=== PATIENT | female | born 1965 | race Caucasian/White ===

== ENCOUNTER → 2016-09-11 | Outpatient (CLI) | payer BC ==
[~2016-09-11] MED LIST: GABA100C; HYDR-4663 PO
[2016-09-11 12:21] LABS: Basophils # (auto) 0 uL; Basophils % (auto) 0.1 % (0.0-2.0); CONDITION Y; Eosinophils # (auto) 0.1 uL; Eosinophils % (auto) 1.2 % (0.0-7.0); Hematocrit 40.1 % (36.0-46.0); Hemoglobin 13.3 g/dL (12.2-16.2); Lymphocytes # (auto) 2.1 uL; Lymphocytes % (auto) 25.1 % (10.0-50.0); Mean Corpuscular Hemoglobin 30.3 pg (28.0-32.0); Mean Corpuscular Hgb Conc. 33.1 g/dL (32.0-36.0); Mean Corpuscular Volume 91.6 fL (80.0-100.0); Mean Platelet Volume 8.9 fL (7.4-10.4); Monocytes # (auto) 0.4 uL; Monocytes % (auto) 4.3 % (0.0-12.0); Neutrophils # (auto) 5.9 uL; Neutrophils % (auto) 69.3 % (37.0-80.0); Platelet Count (auto) 254 10^3/uL (140-450); Red Cell Distribution Width 14.6 % (11.6-16.0); White Blood Cell 8.5 10^3/uL (4.4-10.8)
[2016-09-11 12:54] LABS: Albumin 3.6 g/dL (3.4-5.0); BUN/Creatinine Ratio 20.8; Bilirubin, Total 0.3 mg/dL (0.2-1.0); Calcium 8.6 mg/dL (8.5-10.1); Potassium 4.4 mmol/L (3.5-5.1); Total Protein 7.2 g/dL (6.4-8.2)
== END | disposition home or self-care (01) ==
LOC: LAB 11:53
PROVIDERS: ATTEND Internal Medicine
DX: C50.119 Malignant neoplasm of central portion of unspecified female breast (principal)
CPT/HCPCS: 36415; 80053; 83615; 85025

== ENCOUNTER → 2016-12-24 | Outpatient (CLI) | payer BC ==
[2016-12-24 16:51] LABS: Basophils # (auto) 0.1 uL; Basophils % (auto) 1.3 % (0.0-2.0); Eosinophils # (auto) 0.1 uL; Eosinophils % (auto) 1.3 % (0.0-7.0); Hematocrit 38.5 % (36.0-46.0); Hemoglobin 12.9 g/dL (12.2-16.2); Lymphocytes # (auto) 2.1 uL; Lymphocytes % (auto) 30.1 % (10.0-50.0); Mean Corpuscular Hemoglobin 31.9 pg (28.0-32.0); Mean Corpuscular Hgb Conc. 33.5 g/dL (32.0-36.0); Mean Corpuscular Volume 95.3 fL (80.0-100.0); Mean Platelet Volume 8.9 fL (6.9-10.8); Monocytes # (auto) 0.5 uL; Monocytes % (auto) 7.9 % (0.0-12.0); Neutrophils # (auto) 4.1 uL; Neutrophils % (auto) 59.4 % (37.0-80.0); Nucleated Red Blood Cells % 0.1 %; Platelet Count (auto) 206 10^3/uL (140-450); Red Cell Distribution Width 14.6 % (11.8-14.3); White Blood Cell 6.9 10^3/uL (4.4-10.8)
[2016-12-24 17:06] LABS: Albumin 3.6 g/dL (3.4-5.0); BUN/Creatinine Ratio 16.2; Bilirubin, Total 0.2 mg/dL (0.2-1.0); Calcium 8.4 mg/dL (8.5-10.1); Potassium 4.1 mmol/L (3.5-5.1); Total Protein 7.1 g/dL (6.4-8.2)
== END | disposition home or self-care (01) ==
LOC: LAB 15:46
PROVIDERS: ATTEND Internal Medicine
DX: C50.912 Malignant neoplasm of unspecified site of left female breast (principal); Z79.899 Other long term (current) drug therapy
CPT/HCPCS: 36415; 80053; 83615; 85025; 86300; 86304

== ENCOUNTER → 2017-03-09 | Outpatient (CLI) | payer BC ==
[~2017-03-09] MED LIST changes: -HYDR-4663 PO; +HYDR-4683 PO
[2017-03-09 12:13] LABS: Basophils # (auto) 0 uL; Basophils % (auto) 0.8 % (0.0-2.0); Eosinophils # (auto) 0.1 uL; Eosinophils % (auto) 1.2 % (0.0-7.0); Hematocrit 40.8 % (36.0-46.0); Hemoglobin 13.5 g/dL (12.2-16.2); Lymphocytes # (auto) 1.9 uL; Lymphocytes % (auto) 35.9 % (10.0-50.0); Mean Corpuscular Hemoglobin 30.7 pg (28.0-32.0); Mean Corpuscular Volume 93.3 fL (80.0-100.0); Monocytes # (auto) 0.4 uL; Monocytes % (auto) 8.1 % (0.0-12.0); Neutrophils # (auto) 2.8 uL; Nucleated Red Blood Cells % 0.1 %; Platelet Count (auto) 211 10^3/uL (140-450); Red Cell Distribution Width 13.7 % (11.8-14.3); White Blood Cell 5.3 10^3/uL (4.4-10.8)
[2017-03-09 12:16] LABS: Albumin 3.7 g/dL (3.4-5.0); Bilirubin, Total 0.6 mg/dL (0.2-1.0); Calcium 8.7 mg/dL (8.5-10.1); Total Protein 7.3 g/dL (6.4-8.2)
[2017-03-09 12:28] LABS: Temperature: 23.3 C (20.0-25.0)
[2017-03-09 12:53] LABS: Large Platelets FEW; Ovalocytes FEW; Platelet Estimate Adequate
== END | disposition home or self-care (01) ==
LOC: LAB 11:10
PROVIDERS: ATTEND Internal Medicine
DX: C50.119 Malignant neoplasm of central portion of unspecified female breast (principal)
CPT/HCPCS: 36415; 80053; 82672; 82746; 83615; 85025; 86300

== ENCOUNTER → 2017-06-25 | Outpatient (CLI) | payer BC ==
[2017-06-25 12:49] LABS: Basophils # (auto) 0 uL; Basophils % (auto) 0.5 % (0.0-2.0); Eosinophils # (auto) 0.1 uL; Hematocrit 41.9 % (36.0-46.0); Hemoglobin 13.1 g/dL (12.2-16.2); Lymphocytes # (auto) 1.8 uL; Lymphocytes % (auto) 29.9 % (10.0-50.0); Mean Corpuscular Hemoglobin 31.3 pg (28.0-32.0); Mean Corpuscular Hgb Conc. 31.2 g/dL (32.0-36.0); Mean Corpuscular Volume 100.4 fL (80.0-100.0); Monocytes # (auto) 0.4 uL; Monocytes % (auto) 6.5 % (0.0-12.0); Neutrophils # (auto) 3.7 uL; Neutrophils % (auto) 62.1 % (37.0-80.0); Nucleated Red Blood Cells % 0.1 %; Platelet Count (auto) 173 10^3/uL (140-450); Red Blood Cells 4.17 10^6/uL (4.0-5.20); White Blood Cell 5.9 10^3/uL (4.4-10.8)
[2017-06-25 13:38] LABS: Albumin 3.6 g/dL (3.4-5.0); BUN/Creatinine Ratio 18.7; Bilirubin, Total 0.5 mg/dL (0.2-1.0); Calcium 8.4 mg/dL (8.5-10.1); Potassium 3.8 mmol/L (3.5-5.1); Total Protein 7.1 g/dL (6.4-8.2)
== END | disposition home or self-care (01) ==
LOC: LAB 12:14
PROVIDERS: ATTEND Internal Medicine
DX: C50.312 Malignant neoplasm of lower-inner quadrant of left female breast (principal)
CPT/HCPCS: 36415; 80053; 82672; 83001; 83615; 85025; 86300

== ENCOUNTER 2017-09-29 14:52 | Inpatient (IN) | payer BC ==
[~2017-09-29] VITALS: Ht 157.5 cm; Wt 83.1 kg
[2017-09-29 15:41] LABS: Basophils # (auto) 0.1 uL; Basophils % (auto) 1.6 % (0.0-2.0); Eosinophils # (auto) 0.1 uL; Eosinophils % (auto) 2.3 % (0.0-7.0); Hematocrit 38.5 % (36.0-46.0); Hemoglobin 12.9 g/dL (12.2-16.2); Lymphocytes # (auto) 1.3 uL; Lymphocytes % (auto) 24.6 % (10.0-50.0); Mean Corpuscular Hemoglobin 31.6 pg (28.0-32.0); Mean Corpuscular Hgb Conc. 33.4 g/dL (32.0-36.0); Mean Corpuscular Volume 94.6 fL (80.0-100.0); Monocytes # (auto) 0.3 uL; Monocytes % (auto) 6.2 % (0.0-12.0); Neutrophils # (auto) 3.5 uL; Neutrophils % (auto) 65.3 % (37.0-80.0); Nucleated Red Blood Cells % 0.1 %; Platelet Count (auto) 182 10^3/uL (140-450); Red Blood Cells 4.07 10^6/uL (4.0-5.20); Red Cell Distribution Width 14.1 % (11.8-14.3); White Blood Cell 5.3 10^3/uL (4.4-10.8)
[2017-09-29] MEDS ORDERED: SODIUM CHLORIDE 0.9% 500 ML IVB ONE (15:50)
[2017-09-29 15:58] LABS: Albumin 3.3 g/dL (3.4-5.0); BUN/Creatinine Ratio 14.1; Bilirubin, Total 0.3 mg/dL (0.2-1.0); Calcium 8.6 mg/dL (8.5-10.1); Potassium 3.5 mmol/L (3.5-5.1)
[2017-09-29] MEDS ORDERED: ONDANSETRON HCL 4 MG/2 ML VIAL IV ONE (16:00)
[2017-09-29] MEDS ORDERED: MORPHINE SULF INJ 2 MG/ML SYRINGE 1ML IV ONE (16:00)
[2017-09-29] MEDS ORDERED: ONDANSETRON HCL 4 MG/2 ML VIAL IV PRN (16:15)
[2017-09-29] MEDS ORDERED: ACETAMINOPHEN 500 MG TAB PO PRN (16:15)
[2017-09-29] MEDS ORDERED: LEVOFLOXACIN 500MG 100 ML IV ONE (16:15)
[2017-09-29] MEDS ORDERED: PROMETHAZINE HCL 25 MG/ML 1ML ONE (16:38)
[2017-09-29 16:42] LABS: Urine Bacteria FEW /hpf (None Seen); Urine Blood Negative /uL (Negative); Urine Mucus FEW (None Seen); Urine Specific Gravity 1.031 (1.001-1.035); Urine WBC 2 /hpf (0 - 5)
[2017-09-29] MEDS: SODIUM CHLORIDE 0.9% 1,000 ML IV SCH ×2 (16:42→21:30)
[2017-09-29] MEDS ORDERED: PROMETHAZINE HCL 25 MG/ML 1ML IV ONE (16:45)
[2017-09-29 21:00] VITALS: BP 119/59
[2017-09-29] MEDS: MORPHINE SULF INJ 2 MG/ML SYRINGE 1ML IV PRN (21:35)
[2017-09-29] MEDS: PROMETHAZINE HCL 25 MG/ML 1ML IV PRN (21:35)
[2017-09-29] MEDS ORDERED: TEMAZEPAM 15 MG CAP PO ONE (23:15)
[2017-09-29] MEDS: metroNIDAZOLE 500MG/100ML 100 ML IV SCH (23:31)
[2017-09-30] MEDS: MORPHINE SULF INJ 2 MG/ML SYRINGE 1ML IV PRN ×5 (02:43→21:29)
[2017-09-30] MEDS ORDERED: TAMO20TA5 PO (03:07)
[2017-09-30] MEDS ORDERED: CITA-73 PO (03:08)
[2017-09-30 05:00] VITALS: BP 123/61
[2017-09-30] MEDS: PROMETHAZINE HCL 25 MG/ML 1ML IV PRN ×3 (05:02→17:42)
[2017-09-30] MEDS: metroNIDAZOLE 500MG/100ML 100 ML IV SCH ×3 (06:17→21:29)
[2017-09-30 06:35] LABS: Basophils # (auto) 0 uL; Basophils % (auto) 0.6 % (0.0-2.0); Eosinophils # (auto) 0.2 uL; Eosinophils % (auto) 4.2 % (0.0-7.0); Hemoglobin 11.9 g/dL (12.2-16.2); Lymphocytes # (auto) 1.5 uL; Lymphocytes % (auto) 34.4 % (10.0-50.0); Mean Corpuscular Hemoglobin 31.7 pg (28.0-32.0); Mean Corpuscular Hgb Conc. 33.1 g/dL (32.0-36.0); Mean Corpuscular Volume 95.7 fL (80.0-100.0); Monocytes # (auto) 0.4 uL; Monocytes % (auto) 9.5 % (0.0-12.0); Neutrophils # (auto) 2.3 uL; Neutrophils % (auto) 51.3 % (37.0-80.0); Nucleated Red Blood Cells % 0.1 %; Platelet Count (auto) 163 10^3/uL (140-450); Red Blood Cells 3.76 10^6/uL (4.0-5.20); White Blood Cell 4.4 10^3/uL (4.4-10.8)
[2017-09-30 06:55] LABS: BUN/Creatinine Ratio 17.9; Calcium 8.2 mg/dL (8.5-10.1); Potassium 3.7 mmol/L (3.5-5.1)
[2017-09-30] MEDS: HYDROcodone-ACET 5/325MG TAB PO PRN ×2 (08:08→17:03)
[2017-09-30 09:00] VITALS: BP 112/56
[2017-09-30] MEDS: CITALOPRAM HYDROBR 20 MG TAB PO SCH (10:15)
[2017-09-30] MEDS: LEVOFLOXACIN 500MG 100 ML IV SCH (10:15)
[2017-09-30] MEDS: TAMOXIFEN CITR 10 MG TAB PO SCH (10:16)
[2017-09-30 13:00] VITALS: BP 132/76
[2017-09-30 17:00] VITALS: BP 116/68
[2017-09-30] MEDS: SODIUM CHLORIDE 0.9% 1,000 ML IV SCH (17:43)
[2017-09-30 22:00] VITALS: BP 111/66
[2017-09-30] MEDS ORDERED: TEMAZEPAM 15 MG CAP PO ONE (22:45)
[2017-10-01] MEDS: PROMETHAZINE HCL 25 MG/ML 1ML IV PRN ×2 (01:09→07:29)
[2017-10-01] MEDS: HYDROcodone-ACET 5/325MG TAB PO PRN ×2 (01:10→09:33)
[2017-10-01] MEDS ORDERED: MORPHINE SULFATE 4 MG/ML SYR/VIAL ONE ×2 (03:32→07:05)
[2017-10-01] MEDS: MORPHINE SULF INJ 2 MG/ML SYRINGE 1ML IV PRN ×2 (03:39→07:13)
[2017-10-01 05:00] VITALS: BP 125/77
[2017-10-01] MEDS: metroNIDAZOLE 500MG/100ML 100 ML IV SCH (06:22)
[2017-10-01] MEDS: SODIUM CHLORIDE 0.9% 1,000 ML IV SCH (06:23)
[2017-10-01 08:57] VITALS: BP 111/68
[2017-10-01] MEDS: LEVOFLOXACIN 500MG 100 ML IV SCH (09:31)
[2017-10-01] MEDS: CITALOPRAM HYDROBR 20 MG TAB PO SCH (09:31)
[2017-10-01] MEDS: TAMOXIFEN CITR 10 MG TAB PO SCH (09:32)
[2017-10-01] MEDS ORDERED: DOCUSATE SOD 100 MG CAP PO ONE (10:00)
[2017-10-01] MEDS ORDERED: fentaNYL CITRATE 100 MCG/2 ML VL ONE (12:54)
[2017-10-01] MEDS ORDERED: MIDAZOLAM HCL 1MG/1ML-2 ML VIAL ONE (12:54)
== END 2017-10-01 11:45 | disposition home or self-care (01) | DRG 392 ==
LOC: ER 14:57 → OVERFLOW 14:58 → CENTRAL 20:53
PROVIDERS: ADMIT Internal Medicine; ATTEND Internal Medicine
DX: K57.32 Diverticulitis of large intestine without perforation or abscess without bleeding (principal); E11.9 Type 2 diabetes mellitus without complications; E66.9 Obesity, unspecified; Z68.33 Body mass index [BMI] 33.0-33.9, adult; F17.210 Nicotine dependence, cigarettes, uncomplicated; F32.9 Major depressive disorder, single episode, unspecified; K21.9 Gastro-esophageal reflux disease without esophagitis; Z82.49 Family history of ischemic heart disease and other diseases of the circulatory system; Z85.3 Personal history of malignant neoplasm of breast; Z90.710 Acquired absence of both cervix and uterus; Z88.5 Allergy status to narcotic agent
CPT/HCPCS: 36415; 74176; 80048; 80053; 81001; 82150; 83036; 83690; 85025; 96361; 96365; 96375; J1956; J2250; J2405; J3490

== ENCOUNTER → 2017-10-30 | Outpatient (CLI) | payer BC ==
[~2017-10-30] MED LIST changes: +CITA-73 PO; -GABA100C; -HYDR-4683 PO; +TAMO20TA5 PO
[2017-10-30 14:05] LABS: Basophils # (auto) 0.1 uL; Basophils % (auto) 0.9 % (0.0-2.0); Eosinophils # (auto) 0.1 uL; Eosinophils % (auto) 2.4 % (0.0-7.0); Hematocrit 44.1 % (36.0-46.0); Hemoglobin 14.5 g/dL (12.2-16.2); Lymphocytes # (auto) 1.9 uL; Lymphocytes % (auto) 30.8 % (10.0-50.0); Mean Corpuscular Hemoglobin 31.1 pg (28.0-32.0); Mean Corpuscular Hgb Conc. 32.9 g/dL (32.0-36.0); Mean Corpuscular Volume 94.4 fL (80.0-100.0); Monocytes # (auto) 0.4 uL; Monocytes % (auto) 6.9 % (0.0-12.0); Neutrophils # (auto) 3.6 uL; Platelet Count (auto) 194 10^3/uL (140-450); Red Blood Cells 4.67 10^6/uL (4.0-5.20); Red Cell Distribution Width 14.2 % (11.8-14.3); White Blood Cell 6.2 10^3/uL (4.4-10.8)
[2017-10-30 14:28] LABS: BUN/Creatinine Ratio 9.9; Bilirubin, Total 0.7 mg/dL (0.2-1.0); Calcium 8.9 mg/dL (8.5-10.1); Potassium 4.1 mmol/L (3.5-5.1)
== END | disposition home or self-care (01) ==
LOC: LAB 13:40
PROVIDERS: ATTEND Internal Medicine
DX: C50.312 Malignant neoplasm of lower-inner quadrant of left female breast (principal); K21.9 Gastro-esophageal reflux disease without esophagitis; K63.5 Polyp of colon; F33.41 Major depressive disorder, recurrent, in partial remission; E11.9 Type 2 diabetes mellitus without complications; Z87.891 Personal history of nicotine dependence
CPT/HCPCS: 36415; 80053; 80061; 82306; 83036; 83615; 84443; 85025; 86300; 86677

== ENCOUNTER → 2018-03-11 | Outpatient (CLI) | payer BC ==
[~2018-03-11] MED LIST changes: -TAMO20TA5 PO; +TAMO20TA9 PO
[2018-03-11 10:59] LABS: Urine Bacteria NONE SEEN /hpf (None Seen); Urine Blood Negative /uL (Negative); Urine Mucus FEW (None Seen); Urine Specific Gravity 1.025 (1.001-1.035); Urine WBC 1 /hpf (0 - 5)
[2018-03-11 11:04] LABS: Basophils # (auto) 0.1 uL; Basophils % (auto) 1.1 % (0.0-2.0); Eosinophils # (auto) 0.1 uL; Eosinophils % (auto) 1.8 % (0.0-7.0); Hematocrit 40.9 % (36.0-46.0); Hemoglobin 13.3 g/dL (12.2-16.2); Lymphocytes # (auto) 1.7 uL; Lymphocytes % (auto) 32.4 % (10.0-50.0); Mean Corpuscular Hemoglobin 30.3 pg (28.0-32.0); Mean Corpuscular Hgb Conc. 32.6 g/dL (32.0-36.0); Mean Corpuscular Volume 93.2 fL (80.0-100.0); Monocytes # (auto) 0.5 uL; Monocytes % (auto) 8.7 % (0.0-12.0); Platelet Count (auto) 203 10^3/uL (140-450); Red Blood Cells 4.39 10^6/uL (4.0-5.20); Red Cell Distribution Width 13.2 % (11.8-14.3); White Blood Cell 5.3 10^3/uL (4.4-10.8)
[2018-03-11 11:23] LABS: Albumin 3.5 g/dL (3.4-5.0)
[2018-03-11 11:32] LABS: Bilirubin, Total 0.4 mg/dL (0.2-1.0); Calcium 8.6 mg/dL (8.5-10.1); Total Protein 7.3 g/dL (6.4-8.2)
== END | disposition home or self-care (01) ==
LOC: LAB 10:03
PROVIDERS: ATTEND Internal Medicine
DX: K21.9 Gastro-esophageal reflux disease without esophagitis (principal)
CPT/HCPCS: 36415; 80053; 80061; 81001; 83036; 84439; 84443; 85025; 86695; 86696

== ENCOUNTER → 2018-04-16 | Outpatient (CLI) | payer BC ==
[2018-04-16 15:16] LABS: Basophils # (auto) 0.1 uL; Basophils % (auto) 0.9 % (0.0-2.0); Eosinophils # (auto) 0.1 uL; Eosinophils % (auto) 1.4 % (0.0-7.0); Hematocrit 40.1 % (36.0-46.0); Lymphocytes # (auto) 1.8 uL; Lymphocytes % (auto) 31.6 % (10.0-50.0); Mean Corpuscular Hemoglobin 31.1 pg (28.0-32.0); Mean Corpuscular Hgb Conc. 32.4 g/dL (32.0-36.0); Mean Corpuscular Volume 95.9 fL (80.0-100.0); Monocytes # (auto) 0.4 uL; Monocytes % (auto) 7.8 % (0.0-12.0); Neutrophils # (auto) 3.3 uL; Neutrophils % (auto) 58.3 % (37.0-80.0); Nucleated Red Blood Cells % 0.1 %; Platelet Count (auto) 199 10^3/uL (140-450); Red Blood Cells 4.18 10^6/uL (4.0-5.20); Red Cell Distribution Width 15.3 % (11.8-14.3); White Blood Cell 5.7 10^3/uL (4.4-10.8)
[2018-04-16 15:17] LABS: Albumin 3.5 g/dL (3.4-5.0); Anion Gap 7 (5-15); Blood Urea Nitrogen 15 mg/dL (7-18); Calcium 8.4 mg/dL (8.5-10.1); Carbon Dioxide 22 mmol/L (21-32); Chloride 112 mmol/L (98-107); Glucose 137 mg/dL (74-106); Potassium 3.7 mmol/L (3.5-5.1); Sodium 141 mmol/L (136-145)
[2018-04-16 15:20] LABS: Alanine Aminotransferase 19 U/L (13-56); Alkaline Phosphatase 74 U/L (45-117); Aspartate Aminotransferase 14 U/L (15-37); Bilirubin, Total 0.4 mg/dL (0.2-1.0); GFR African American > 60 mL/min; GFR Non-African American > 60 mL/min; Lactate Dehydrogenase 159 U/L (84-246); Total Protein 7.1 g/dL (6.4-8.2)
== END | disposition home or self-care (01) ==
LOC: LAB 14:10
PROVIDERS: ATTEND Internal Medicine
DX: C50.312 Malignant neoplasm of lower-inner quadrant of left female breast (principal)
CPT/HCPCS: 36415; 80053; 83615; 85025; 86300

== ENCOUNTER 2019-09-11 20:58 | Inpatient (IN) | payer BC ==
[~2019-09-11] VITALS: Ht 157.5 cm; Wt 93.6 kg
[2019-09-11 22:59] LABS: Basophils # (auto) 0 10 ^3/uL (0-0.2); Basophils % (auto) 0.3 % (0.0-2.0); Eosinophils # (auto) 0 10 ^3/uL (0-0.8); Eosinophils % (auto) 0.5 % (0.0-7.0); Hematocrit 35.7 % (36.0-46.0); Hemoglobin 11.9 g/dL (12.2-16.2); Lymphocytes # (auto) 1.6 10 ^3/uL (0.4-5.4); Lymphocytes % (auto) 15.5 % (10.0-50.0); Mean Corpuscular Hemoglobin 30.5 pg (28.0-32.0); Mean Corpuscular Hgb Conc. 33.4 g/dL (32.0-36.0); Mean Corpuscular Volume 91.3 fL (80.0-100.0); Monocytes # (auto) 0.6 10 ^3/uL (0-1.3); Monocytes % (auto) 5.9 % (0.0-12.0); Neutrophils # (auto) 8.1 10 ^3/uL (1.6-8.6); Neutrophils % (auto) 77.8 % (37.0-80.0); Platelet Count (auto) 233 10^3/uL (140-450); Red Cell Distribution Width 13.6 % (11.8-14.3); White Blood Cell 10.5 10^3/uL (4.4-10.8)
[2019-09-11] MEDS ORDERED: SODIUM CHLORIDE 0.9% 1,000 ML IV ONE (23:00)
[2019-09-11] MEDS ORDERED: MORPHINE SULFATE 4 MG/ML SYR/VIAL IV ONE (23:00)
[2019-09-11] MEDS ORDERED: ONDANSETRON HCL 4 MG/2 ML VIAL IV ONE (23:00)
[2019-09-11 23:17] LABS: Albumin 3.1 g/dL (3.4-5.0); Calcium 8.2 mg/dL (8.5-10.1); Potassium 3.8 mmol/L (3.5-5.1)
[2019-09-11 23:21] LABS: Bilirubin, Total 0.4 mg/dL (0.2-1.0); Total Protein 6.9 g/dL (6.4-8.2)
[2019-09-11 23:25] LABS: INR 0.94 (0.9-1.15); Partial Thromboplastin Time 29.2 sec (23.64-32.05)
[2019-09-12] VITALS (7 sets, daily range): BP systolic 106–119; BP diastolic 56–69
[2019-09-12] MEDS ORDERED: PROMETHAZINE HCL 25 MG/ML 1ML IV ONE ×2 (00:15→17:30)
[2019-09-12] MEDS ORDERED: PIPERACILLIN-TAZOB 3.375GM 100 ML IV ONE (00:15)
[2019-09-12] MEDS ORDERED: VANCOMYCIN 1GM/250ML 250 ML IV ONE (00:15)
[2019-09-12] MEDS ORDERED: HYDROmorphone HCL 2 MG/ML VL IV ONE (00:15)
[2019-09-12 00:17] LABS: BUN/Creatinine Ratio 13.6
[2019-09-12] MEDS ORDERED: IOHEXOL 300 MG/ML 100ML BOTTLE IJ ONE (00:40)
[2019-09-12] MEDS ORDERED: SODIUM CHLORIDE 0.9% 1,000 ML IV SCH (03:08)
[2019-09-12 03:19] LABS: Urine Bacteria FEW /hpf (None Seen); Urine Blood Negative /uL (Negative); Urine Hyaline Cast FEW /lpf (0 - 2); Urine Mucus FEW (None Seen); Urine Specific Gravity 1.014 (1.001-1.035); Urine WBC 1 /hpf (0 - 5)
--- NOTE | 2019-09-12 04:45 | NUR ---
MS admit from ER [facility]IMENEZ[facility] Patient oriented to SHELLI PARKER RN primary RN, unit, room, bed, and unit policies regarding patient care and visiting hours. Patient alert and oriented X 4. No respiratory distress. Respirations 22 bpm, regular and non-labored. Patient repots abdominal pain 6 out of 10. Will paged hospitalist for pain med prescription. IV in R wrist is patent. Patient weighed by bed scale and encouraged to call if they need something. All questions and concerns addressed, patient verbalized understanding. Note: []
--- NOTE | 2019-09-12 05:13 | NUR ---
Paged hospitalist Paged hospitalist regarding pain meds for the patient.
[2019-09-12] MEDS: metroNIDAZOLE 500MG/100ML 100 ML IV SCH ×4 (07:04→23:51)
--- NOTE | 2019-09-12 07:20 | NUR ---
Opening shift note assumed care of patient from NOC RN Velvet. Patient is AOx4, no s/s of distress noted. Updated patient on plan of care, and patient verbalized understanding. Bed is in lowest locked position, call light within reach. I will continue to monitor q1hr and PRN.
[2019-09-12 07:48] LABS: Basophils # (auto) 0 10 ^3/uL (0-0.2); Basophils % (auto) 0.4 % (0.0-2.0); Eosinophils # (auto) 0.1 10 ^3/uL (0-0.8); Eosinophils % (auto) 0.9 % (0.0-7.0); Lymphocytes # (auto) 1.6 10 ^3/uL (0.4-5.4); Lymphocytes % (auto) 24.4 % (10.0-50.0); Mean Corpuscular Hemoglobin 30.7 pg (28.0-32.0); Mean Corpuscular Hgb Conc. 33.4 g/dL (32.0-36.0); Mean Corpuscular Volume 92.1 fL (80.0-100.0); Monocytes # (auto) 0.5 10 ^3/uL (0-1.3); Monocytes % (auto) 7.2 % (0.0-12.0); Neutrophils # (auto) 4.5 10 ^3/uL (1.6-8.6); Neutrophils % (auto) 67.1 % (37.0-80.0); Platelet Count (auto) 195 10^3/uL (140-450); Red Blood Cells 3.58 10^6/uL (4.0-5.20); Red Cell Distribution Width 13.7 % (11.8-14.3); White Blood Cell 6.8 10^3/uL (4.4-10.8)
[2019-09-12 08:05] LABS: BUN/Creatinine Ratio 14.3; Calcium 7.9 mg/dL (8.5-10.1); Potassium 3.7 mmol/L (3.5-5.1)
--- NOTE | 2019-09-12 08:54 | NUR ---
paged telephone instrument supervisor hospitalist Paged telephone instrument supervisor regarding PRN medications for pain and nausea. Awaiting call back.
[2019-09-12] MEDS ORDERED: AMOXICILLIN TRIHYDRATE 250 MG CAP PO SCH (10:00)
[2019-09-12] MEDS ORDERED: levoFLOXacin 500MG 100 ML IV ONE (11:15)
[2019-09-12] MEDS ORDERED: FAMOTIDINE (10MG/ML) 2ML VL IV ONE (11:15)
[2019-09-12] MEDS ORDERED: traMADol HCL 50 MG TAB PO PRN (11:15)
[2019-09-12] MEDS: SODIUM CHLORIDE 0.9% 1,000 ML IV SCH ×2 (12:08→21:15)
[2019-09-12] MEDS: HYDROmorphone HCL 2 MG/ML VL IV PRN ×2 (12:09→19:02)
[2019-09-12] MEDS: ONDANSETRON HCL 4 MG/2 ML VIAL IV PRN (12:10)
--- NOTE | 2019-09-12 17:23 | NUR ---
PAGED CO FOUNDER & CEO Paged patient relations coordinator regarding nausea medication. Per patient Zofran does not control her nausea. awaiting call back.
--- NOTE | 2019-09-12 17:25 | NUR ---
Received call back Received call back from cable installation technician hospitalist LOUISE Larkin. New orders received, I will follow through.
--- NOTE | 2019-09-12 19:31 | NUR ---
Closing shift note Endorsed care to noc RN Megan no s/s of distress noted.
--- NOTE | 2019-09-12 19:40 | NUR ---
Opening Shift Note Assumed care of patient, awake and alert. No S/S of distress/SOB or pain. Instructed on POC and to call for assist PRN, will continue to monitor for changes Q1hr and PRN.
--- NOTE | 2019-09-12 19:42 | NUR ---
RE Pain patient said " I have no pain", will continue to monitor.
--- NOTE | 2019-09-12 22:20 | NUR ---
Sleeping Pill Patient requested a sleeping pill, Hospitalist Sergio ordered Temazepam 15 mg PO once.
[2019-09-12] MEDS ORDERED: TEMAZEPAM 15 MG CAP PO ONE (22:45)
[2019-09-13] MEDS: HYDROmorphone HCL 2 MG/ML VL IV PRN ×4 (00:02→23:12)
--- NOTE | 2019-09-13 00:02 | NUR ---
Pain Patient c/o pain 7/10 to lower abdomen, pain medication administered.
--- NOTE | 2019-09-13 00:32 | NUR ---
RE Pain Patient resting with eyes closed, no signs of pain or distress, will continue to monitor.
[2019-09-13 05:30] VITALS: BP 126/54
[2019-09-13] MEDS: metroNIDAZOLE 500MG/100ML 100 ML IV SCH ×4 (05:34→23:59)
[2019-09-13 06:02] LABS: Basophils # (auto) 0 10 ^3/uL (0-0.2); Basophils % (auto) 0.7 % (0.0-2.0); Eosinophils # (auto) 0.1 10 ^3/uL (0-0.8); Eosinophils % (auto) 0.9 % (0.0-7.0); Hematocrit 34.7 % (36.0-46.0); Hemoglobin 11.2 g/dL (12.2-16.2); Lymphocytes # (auto) 1.2 10 ^3/uL (0.4-5.4); Lymphocytes % (auto) 17.8 % (10.0-50.0); Mean Corpuscular Hemoglobin 30.3 pg (28.0-32.0); Mean Corpuscular Hgb Conc. 32.3 g/dL (32.0-36.0); Monocytes # (auto) 0.4 10 ^3/uL (0-1.3); Monocytes % (auto) 6.7 % (0.0-12.0); Neutrophils # (auto) 4.8 10 ^3/uL (1.6-8.6); Neutrophils % (auto) 73.9 % (37.0-80.0); Platelet Count (auto) 192 10^3/uL (140-450); Red Blood Cells 3.69 10^6/uL (4.0-5.20); Red Cell Distribution Width 13.8 % (11.8-14.3); White Blood Cell 6.5 10^3/uL (4.4-10.8)
[2019-09-13] MEDS: SODIUM CHLORIDE 0.9% 1,000 ML IV SCH ×2 (06:10→13:53)
[2019-09-13 06:14] LABS: BUN/Creatinine Ratio 17.6; Calcium 8.1 mg/dL (8.5-10.1)
[2019-09-13] MEDS: ONDANSETRON HCL 4 MG/2 ML VIAL IV PRN (06:49)
--- NOTE | 2019-09-13 06:49 | NUR ---
Pain Patient c/o pain /10 to abdomen, pain medication administered.
--- NOTE | 2019-09-13 07:02 | NUR ---
Closing shift note No s/s of distress noted, endorsed care to dayshift nurse.
--- NOTE | 2019-09-13 07:30 | NUR ---
Opening Shift Note Report received and assumed care of patient, awake,alert and oriented No S/S of distress/SOB,stated received tolerable relief from pain medication given earlier but still having nausea,requested to have zofran change to Phenergan reassured will ask and inform M.Nataliia,IV to right wrist infiltrated and puffy,discontinued IVF,instructed will re start another IV site.Instructed on POC,disease process,nursing routines and turning q 2 hour, call light within reach patient reminded,instructed to call for assistance,patient verbalized understanding. will continue to monitor for changes Q1hr and PRN.
--- NOTE | 2019-09-13 08:15 | NUR ---
IV TO RIGHT WRIST DISCONTINUED,STARTED G#20 TO RIGHT FOREARM
[2019-09-13 09:00] VITALS: BP 114/67
[2019-09-13] MEDS: levoFLOXacin 500MG 100 ML IV SCH (10:58)
[2019-09-13] MEDS: FAMOTIDINE (10MG/ML) 2ML VL IV SCH (10:58)
--- NOTE | 2019-09-13 11:03 | NUR ---
PATIENT WANTED TO WAIT TO TAKE HER NOLVADEX UNTIL NAUSEA SUBSIDED
[2019-09-13 12:47] VITALS: BP 137/71
--- NOTE | 2019-09-13 13:10 | NUR ---
MD VISIT DR. CASTILLO HERE TO SEE AND EXAMINED PATIENT,INFORMED THAT PER PATIENT ZOFRAN NOT WORKING FOR HER NAUSEA AND PREFERS TO HAVE PHENERGAN,RECEIVED ORDER FOR PHENERGAN AND TO START CLEAR LIQUID TOLERATED.
[2019-09-13] MEDS ORDERED: PROMETHAZINE HCL 25 MG/ML 1ML IV PRN (13:15)
--- NOTE | 2019-09-13 13:54 | NUR ---
C/O NAUSEA,MEDICATED WITH PHENERGAN 12.5 MG SLOW IVP, SEE eMAR
[2019-09-13] MEDS: ACETAMINOPHEN 500 MG TAB PO PRN (14:03)
--- NOTE | 2019-09-13 14:03 | NUR ---
C/O HEADACHE 06/06,MEDOCATED WITH TYLENOL 500 MG,SEE KIESHA
[2019-09-13 17:00] VITALS: BP 112/61
[2019-09-13] MEDS: TAMOXIFEN CITR 10 MG TAB PO SCH (17:23)
--- NOTE | 2019-09-13 17:30 | NUR ---
PATIENT STATED NO FURTHER NAUSEA AND FEELING MUCH BETTER AFTER PHENERGAN WAS GIVEN
--- NOTE | 2019-09-13 19:23 | NUR ---
STATUS UNCHANGED,REPORT GIVEN TO INCOMING NOC SHIFT RN
--- NOTE | 2019-09-13 19:30 | NUR ---
Opening Shift Note Assumed care of patient, awake and alert. No S/S of distress/SO. Instructed on POC and to call for assist PRN, will continue to monitor for changes Q1hr and PRN.
--- NOTE | 2019-09-13 19:52 | NUR ---
Pain Patient c/o pain 8/10 to abdomen, pain medication administered.
--- NOTE | 2019-09-13 20:22 | NUR ---
RE Pain Patient said "my pain is 4/10 it feels better"
[2019-09-13 22:14] VITALS: BP 126/61
--- NOTE | 2019-09-13 22:20 | NUR ---
Sleeping Pill Patient requested a sleeping pill, LOUISE Hill orders Temazepam 15 mg PO HS PRN for insomnia. Repeated to verified orders.
[2019-09-13] MEDS ORDERED: TEMAZEPAM 15 MG CAP PO PRN (22:30)
[2019-09-14] MEDS: SODIUM CHLORIDE 0.9% 1,000 ML IV SCH
[2019-09-14 05:43] VITALS: BP 129/62
[2019-09-14] MEDS: metroNIDAZOLE 500MG/100ML 100 ML IV SCH ×2 (06:17→12:36)
--- NOTE | 2019-09-14 07:04 | NUR ---
Closing shift note No s/s of distress noted, endorsed care to dayshift nurse.
[2019-09-14 09:00] VITALS: BP 121/61
--- NOTE | 2019-09-14 09:00 | NUR ---
22 GAUGE IV PLACED TO RIGHT UPPER ARM AFTER 1 ATTEMPT, BLOOD RETURNED, FLUSHING WITHOUT ANY SWELLING OR DISCOMFORT.
[2019-09-14] MEDS: FAMOTIDINE (10MG/ML) 2ML VL IV SCH (09:49)
[2019-09-14] MEDS: CITALOPRAM HYDROBR 20 MG TAB PO SCH ×2 (09:50→09:52)
[2019-09-14] MEDS: levoFLOXacin 500MG 100 ML IV SCH (09:50)
[2019-09-14] MEDS: ACETAMINOPHEN 500 MG TAB PO PRN (10:38)
[2019-09-14] MEDS: TAMOXIFEN CITR 10 MG TAB PO SCH (10:39)
--- NOTE | 2019-09-14 11:08 | NUR ---
DR WESTBROOK AT BEDSIDE. DISCUSSED POC AND PLANS TO DC THIS AFTERNOON WITH THE PATIENT.
[2019-09-14 12:28] VITALS: BP 133/70
[2019-09-14 14:35] VITALS: BP 133/70
--- NOTE | 2019-09-14 15:00 | NUR ---
PATIENT DC HOME. EDUCATION GIVEN ON F/U, DIET, ACTIVITY AND WHAT TO DO IF SYMPTOMS WORSEN OR PATIENT EXPERIENCES SOB OR CP. PATIENT VERBALIZED UNDERSTANDING ON THESE TOPICS. PATIENT GIVEN PRESCRIPTIONS. IV REMOVED WITH TIP INTACT AND DRESSING PLACED. PATIENT WHEELED OUT TO PRIVATE VEHICLE BY ARIEL.
--- NOTE | 2019-09-14 15:06 | NUR ---
Nutrition Assessment Notes Please refer to link for full assessment notes. Est Energy needs: 6949-7919 kcals (14-18 kcal/kgBW) Est Protein needs: 75-100 gms/day (1.5-2.0 gm/kgIBW) d/t pt adiposity Will continue to monitor and reassess prn. Addendum: 09/14/19 at [address] Amended: Links added.
== END 2019-09-14 15:17 | disposition home or self-care (01) | DRG 391 ==
LOC: ER 21:02 → OVERFLOW 21:03 → WEST WING 09-12 04:44
PROVIDERS: ADMIT Hospitalist; ATTEND Internal Medicine
DX: K57.32 Diverticulitis of large intestine without perforation or abscess without bleeding (principal); R57.1 Hypovolemic shock; E66.9 Obesity, unspecified; F17.210 Nicotine dependence, cigarettes, uncomplicated; F32.9 Major depressive disorder, single episode, unspecified; I10 Essential (primary) hypertension; I25.10 Atherosclerotic heart disease of native coronary artery without angina pectoris; M19.90 Unspecified osteoarthritis, unspecified site; K21.9 Gastro-esophageal reflux disease without esophagitis; J02.0 Streptococcal pharyngitis; Z82.49 Family history of ischemic heart disease and other diseases of the circulatory system; Z85.3 Personal history of malignant neoplasm of breast; Z90.710 Acquired absence of both cervix and uterus; Z90.49 Acquired absence of other specified parts of digestive tract; Z79.899 Other long term (current) drug therapy; Z68.37 Body mass index [BMI] 37.0-37.9, adult; Z88.5 Allergy status to narcotic agent
CPT/HCPCS: 36415; 74177; 80048; 80053; 81001; 82728; 83605; 83880; 85025; 85610; 85730; 87040; 87804; 87880; 96361; 96365; 96367; 96375; G0378; J1956; J2405; J2543; J3490

== ENCOUNTER → 2019-09-20 | Outpatient (CLI) | payer BC ==
[2019-09-20 10:38] LABS: Basophils # (auto) 0.1 10 ^3/uL (0-0.2); Eosinophils # (auto) 0.1 10 ^3/uL (0-0.8); Eosinophils % (auto) 2.3 % (0.0-7.0); Hematocrit 39.8 % (36.0-46.0); Hemoglobin 13.2 g/dL (12.2-16.2); Lymphocytes # (auto) 1.6 10 ^3/uL (0.4-5.4); Lymphocytes % (auto) 28.2 % (10.0-50.0); Mean Corpuscular Hemoglobin 30.2 pg (28.0-32.0); Mean Corpuscular Hgb Conc. 33.2 g/dL (32.0-36.0); Mean Corpuscular Volume 90.9 fL (80.0-100.0); Monocytes # (auto) 0.4 10 ^3/uL (0-1.3); Monocytes % (auto) 6.5 % (0.0-12.0); Neutrophils # (auto) 3.5 10 ^3/uL (1.6-8.6); Platelet Count (auto) 297 10^3/uL (140-450); Red Blood Cells 4.38 10^6/uL (4.0-5.20); Red Cell Distribution Width 13.7 % (11.8-14.3); White Blood Cell 5.7 10^3/uL (4.4-10.8)
[2019-09-20 10:48] LABS: Urine Bacteria NONE SEEN /hpf (None Seen); Urine Blood Negative /uL (Negative); Urine WBC <1 /hpf (0 - 5)
[2019-09-20 10:55] LABS: INR 0.92 (0.9-1.15)
[2019-09-20 11:12] LABS: Magnesium 2.5 mg/dL (1.6-2.6); Potassium 3.9 mmol/L (3.5-5.1)
[2019-09-20 11:21] LABS: Albumin 3.6 g/dL (3.4-5.0); BUN/Creatinine Ratio 23.7; Bilirubin, Total 0.3 mg/dL (0.2-1.0); Calcium 9.1 mg/dL (8.5-10.1); Carcinoembryonic Antigen < 0.50 ng/mL (<5.0 OR =); Free T3 3.07 pg/mL (2.3-4.2); Free T4 (Free Thyroxine) 0.88 ng/dL (0.89-1.76); Phosphorus 2.9 mg/dL (2.5-4.90); T3 Total 1.36 ng/mL (0.60-1.81); Total Protein 7.2 g/dL (6.4-8.2); Uric Acid 4.8 mg/dL (2.6-6.0)
== END | disposition home or self-care (01) ==
LOC: LAB 09:35
DX: Z00.00 Encounter for general adult medical examination without abnormal findings (principal); M79.7 Fibromyalgia; K57.30 Diverticulosis of large intestine without perforation or abscess without bleeding; R53.1 Weakness; N39.0 Urinary tract infection, site not specified
CPT/HCPCS: 36415; 80053; 80061; 81001; 82043; 82378; 82607; 82670; 82947; 83036; 83540; 83550; 83615; 83735; 84100; 84439; 84443; 84480; 84481; 84550; 85025; 85379; 85610

== ENCOUNTER 2019-10-21 17:58 | Inpatient (IN) | payer BC ==
[~2019-10-21] VITALS: Ht 157.5 cm; Wt 89.1 kg
[2019-10-21] MEDS ORDERED: SODIUM CHLORIDE 0.9% 1,000 ML IV ONE (18:45)
[2019-10-21] MEDS ORDERED: VANCOMYCIN 1GM/250ML 250 ML IV ONE (18:45)
[2019-10-21] MEDS ORDERED: HYDROmorphone HCL 2 MG/ML VL IV ONE (18:45)
[2019-10-21] MEDS ORDERED: PROMETHAZINE HCL 25 MG/ML 1ML IV ONE (18:45)
[2019-10-21] MEDS ORDERED: cefTRIAXone 1GM/50ML D5W 50 ML IV ONE (18:45)
[2019-10-21 19:27] LABS: Basophils # (auto) 0 10 ^3/uL (0-0.2); Basophils % (auto) 0.4 % (0.0-2.0); Eosinophils # (auto) 0 10 ^3/uL (0-0.8); Eosinophils % (auto) 0.2 % (0.0-7.0); Hemoglobin 12.9 g/dL (12.2-16.2); Lymphocytes # (auto) 1.8 10 ^3/uL (0.4-5.4); Lymphocytes % (auto) 15.9 % (10.0-50.0); Mean Corpuscular Hemoglobin 29.9 pg (28.0-32.0); Mean Corpuscular Hgb Conc. 32.3 g/dL (32.0-36.0); Mean Corpuscular Volume 92.7 fL (80.0-100.0); Monocytes # (auto) 0.7 10 ^3/uL (0-1.3); Monocytes % (auto) 5.7 % (0.0-12.0); Neutrophils % (auto) 77.8 % (37.0-80.0); Platelet Count (auto) 215 10^3/uL (140-450); Red Blood Cells 4.31 10^6/uL (4.0-5.20); Red Cell Distribution Width 14.5 % (11.8-14.3); White Blood Cell 11.6 10^3/uL (4.4-10.8)
[2019-10-21 19:48] LABS: Alanine Aminotransferase 15 U/L (13-56); Albumin 2.9 g/dL (3.4-5.0); Amylase 32 U/L (25-115); Anion Gap 7 (5-15); Aspartate Aminotransferase 15 U/L (15-37); BUN/Creatinine Ratio 15.3; Blood Urea Nitrogen 11 mg/dL (7-18); Calcium 8.4 mg/dL (8.5-10.1); Carbon Dioxide 20 mmol/L (21-32); Chloride 111 mmol/L (98-107); GFR African American 108 mL/min; GFR Non-African American 89 mL/min; Glucose 88 mg/dL (74-106); Lipase 53 U/L (73-393); Magnesium 2.1 mg/dL (1.6-2.6); Sodium 138 mmol/L (136-145)
[2019-10-21 19:51] LABS: Alkaline Phosphatase 78 U/L (45-117); Bilirubin, Total 0.7 mg/dL (0.2-1.0); Total Protein 6.8 g/dL (6.4-8.2)
[2019-10-21] MEDS ORDERED: IOHEXOL 300 MG/ML 100ML BOTTLE IJ ONE (20:18)
[2019-10-21] MEDS ORDERED: ACETAMINOPHEN 500 MG TAB PO ONE (20:30)
[2019-10-21 20:43] LABS: Urine Bacteria NONE SEEN /hpf (None Seen); Urine Blood Negative /uL (Negative); Urine Specific Gravity 1.019 (1.001-1.035); Urine WBC <1 /hpf (0 - 5)
[2019-10-22] MEDS ORDERED: HYDROmorphone HCL 2 MG/ML VL IV ONE
[2019-10-22] MEDS ORDERED: SODIUM CHLORIDE 0.9% 1,000 ML IV ONE
[2019-10-22] MEDS ORDERED: ACETAMINOPHEN 325 MG TAB PO PRN (00:15)
[2019-10-22] MEDS ORDERED: ONDANSETRON HCL 4 MG/2 ML VIAL IV PRN (00:15)
[2019-10-22] MEDS ORDERED: LORazepam 0.5 MG TAB PO PRN (00:15)
--- NOTE | 2019-10-22 02:15 | NUR ---
MS admit from ER Patient admitted to tele/MS. Patient oriented to primary RN, unit, room, bed, and unit policies regarding patient care and visiting hours. Patient weighed by bedscale and encouraged to call if they need something. All questions and concerns addressed, patient verbalized understanding. Safety precautions maintained bed is in lowest position, bed rails 2x. Call light and bedside table are within reach.
[2019-10-22] MEDS: SODIUM CHLORIDE 0.9% 1,000 ML IV SCH ×2 (02:33→16:48)
[2019-10-22] MEDS: PROMETHAZINE HCL 25 MG/ML 1ML IV PRN ×3 (03:25→18:57)
[2019-10-22 05:00] VITALS: BP 100/64
--- NOTE | 2019-10-22 07:12 | NUR ---
End of Shift Note Endorsed care to dayshift RN. At this time patient has no s/s of distress or SOB, no complaints.
--- NOTE | 2019-10-22 07:30 | NUR ---
Opening Shift Note Assumed care of patient, awake and alert. No S/S of distress/SOB or mild abdominal pain. Instructed on POC and to call for assist PRN, will continue to monitor for changes Q1hr and PRN.
[2019-10-22] MEDS: HYDROmorphone HCL 2 MG/ML VL IV PRN ×2 (08:04→18:57)
[2019-10-22 09:00] VITALS: BP 101/62
[2019-10-22] MEDS ORDERED: levoFLOXacin 500MG 100 ML IV SCH (10:00)
[2019-10-22] MEDS ORDERED: cefTRIAXone 1GM/50ML D5W 50 ML IV SCH (10:00)
[2019-10-22 10:18] LABS: White Blood Cell 11.6 10^3/uL (4.4-10.8)
[2019-10-22 10:19] LABS: Basophils # (auto) 0.1 10 ^3/uL (0-0.2); Basophils % (auto) 0.8 % (0.0-2.0); Eosinophils # (auto) 0 10 ^3/uL (0-0.8); Eosinophils % (auto) 0.2 % (0.0-7.0); Hematocrit 35.6 % (36.0-46.0); Hemoglobin 11.7 g/dL (12.2-16.2); Lymphocytes # (auto) 1.9 10 ^3/uL (0.4-5.4); Lymphocytes % (auto) 16.4 % (10.0-50.0); Mean Corpuscular Hemoglobin 30.1 pg (28.0-32.0); Mean Corpuscular Hgb Conc. 32.8 g/dL (32.0-36.0); Mean Corpuscular Volume 91.9 fL (80.0-100.0); Monocytes # (auto) 0.7 10 ^3/uL (0-1.3); Monocytes % (auto) 6.1 % (0.0-12.0); Neutrophils # (auto) 8.9 10 ^3/uL (1.6-8.6); Neutrophils % (auto) 76.5 % (37.0-80.0); Nucleated Red Blood Cells % 0.1 %; Platelet Count (auto) 164 10^3/uL (140-450); Red Blood Cells 3.87 10^6/uL (4.0-5.20); Red Cell Distribution Width 14.5 % (11.8-14.3)
[2019-10-22 10:31] LABS: Calcium 8.1 mg/dL (8.5-10.1); Potassium 3.8 mmol/L (3.5-5.1)
[2019-10-22 10:34] LABS: BUN/Creatinine Ratio 16.1
[2019-10-22] MEDS: PIPERACILLIN-TAZOB 3.375GM 100 ML IV SCH ×3 (11:49→23:27)
[2019-10-22] MEDS: PANTOPRAZOLE 40 MG TAB PO SCH ×2 (12:22→21:23)
[2019-10-22 17:00] VITALS: BP 114/56
--- NOTE | 2019-10-22 19:35 | NUR ---
Opening Shift Note Assumed care of patient, awake and alert. Fall and safety precautions in place. Call light within reach and able to use. No S/S of distress/SOB or pain. Instructed on POC and to call for assist PRN, patient verbalized understanding and in agreement. Will continue to monitor for changes Q1hr and PRN.
[2019-10-22] MEDS: TEMAZEPAM 15 MG CAP PO PRN (21:23)
[2019-10-22 22:00] VITALS: BP 111/71
[2019-10-23] MEDS: PROMETHAZINE HCL 25 MG/ML 1ML IV PRN ×4 (02:21→19:31)
[2019-10-23] MEDS: HYDROmorphone HCL 2 MG/ML VL IV PRN ×4 (02:22→21:44)
--- NOTE | 2019-10-23 04:15 | NUR ---
IV removal IV DC'd with clean sterile technique, catheter fully intact. Pressure dressing applied to site. Patient tolerated well.
--- NOTE | 2019-10-23 04:30 | NUR ---
IV insertion IV access obtained, via clean sterile technique by inserting 22 gauge catheter at right forearm after 3 attempts. IV secured properly. No trauma to site. Patient tolerated well.
[2019-10-23 05:00] VITALS: BP 106/59
[2019-10-23] MEDS: PIPERACILLIN-TAZOB 3.375GM 100 ML IV SCH ×3 (05:35→18:42)
--- NOTE | 2019-10-23 07:30 | NUR ---
Opening Note Received report from rn shift mgr RN. Patient is awake, alert and oriented x4. No signs or symptoms of distress noted at this time. Patient complains of abdominal pain 7/10 and is requesting pain medications. Will medicate per orders. Patient is on room air, respirations even and unlabored. Reviewed plan of care with patient, patient verbalized understanding. Bed in low and locked position, call light within reach. Will continue to monitor Q1 hour and PRN.
--- NOTE | 2019-10-23 07:48 | NUR ---
Dr. Gallito Becerra at bedside MD discussing plan of care with patient and this RN. No new orders received. Will continue to monitor Q1 hour and PRN.
[2019-10-23 09:00] VITALS: BP 121/74
[2019-10-23] MEDS: DOCUSATE SOD 100 MG CAP PO PRN (10:04)
[2019-10-23] MEDS: PANTOPRAZOLE 40 MG TAB PO SCH ×2 (10:04→21:43)
[2019-10-23] MEDS: SODIUM CHLORIDE 0.9% 1,000 ML IV SCH (10:06)
--- NOTE | 2019-10-23 11:56 | NUR ---
Dr. Washington at nurse station Updating this RN on plan of care. Patients diet advanced to full liquids. Will continue to monitor Q1 hour and PRN.
[2019-10-23 13:00] VITALS: BP 106/70
--- NOTE | 2019-10-23 15:32 | NUR ---
IV removed Patient complains of pain and swelling to right forearm. IV removed, catheter intact, pressure dressing applied. Patient tolerated well. Will continue to monitor Q1 hour and PRN.
--- NOTE | 2019-10-23 16:50 | NUR ---
IV Insertion IV access obtained, via clean sterile technique by inserting 22 gauge catheter at after two attempts, to right upper chest. IV secured properly. No trauma to site. Patient tolerated well. Will continue to monitor Q1 hour and PRN.
[2019-10-23 17:00] VITALS: BP 118/73
--- NOTE | 2019-10-23 19:10 | NUR ---
Closing Note Report given to evening or night nurse supervisor RN. No signs or symptoms of distress noted at this time.
[2019-10-23] MEDS: TAMOXIFEN CITR 10 MG TAB PO SCH (21:43)
[2019-10-23 22:00] VITALS: BP 106/56
[2019-10-23] MEDS: TEMAZEPAM 15 MG CAP PO PRN (22:49)
[2019-10-24] MEDS: PIPERACILLIN-TAZOB 3.375GM 100 ML IV SCH ×4 (00:05→18:00)
--- NOTE | 2019-10-24 02:00 | NUR ---
C/O PAIN / ON-CALL PAGED PATIENT COMPLAINING OF MODERATE PAIN RATED 6/10 USING ADULT SCALE TO HER LOWER ABDOMEN. NO PRN'S FOR MODERATE PAIN AVAILABLE. ON-CALL HOSP PAGED. AWAITING CALL BACK.
--- NOTE | 2019-10-24 02:03 | NUR ---
NEW ORDER / ON-CALL CALLBACK RECEIVED CALL BACK FROM ON-CALL HOSP. UPDATED MD ON PATIENT STATUS AND PATIENT COMPLAINT. NEW ORDER RECEIVED, READ BACK AND VERIFIED (SEE NEW ORDERS). WILL CARRY OUT. WILL CONTINUE TO MONITOR.
[2019-10-24] MEDS: HYDROcodone-ACET 5/325MG TAB PO PRN ×3 (02:24→18:54)
[2019-10-24] MEDS: SODIUM CHLORIDE 0.9% 1,000 ML IV SCH ×2 (02:28→18:20)
[2019-10-24] MEDS: PROMETHAZINE HCL 25 MG/ML 1ML IV PRN ×4 (04:46→20:54)
[2019-10-24] MEDS: HYDROmorphone HCL 2 MG/ML VL IV PRN ×3 (04:47→22:00)
[2019-10-24 05:00] VITALS: BP 102/63
[2019-10-24] MEDS: DOCUSATE SOD 100 MG CAP PO PRN ×3 (05:14→21:59)
--- NOTE | 2019-10-24 07:35 | NUR ---
Opening Note Received report from animal cruelty investigator RN. Patient is awake, alert and oriented x4. No signs or symptoms of distress noted at this time. Patient is on room air, respirations even and unlabored. Patient complains of abdominal pain 5/10. Reviewed plan of care with patient, patient verbalized understanding. Bed in low and locked position, call light within reach. Will continue to monitor Q1 hour and PRN.
--- NOTE | 2019-10-24 08:14 | NUR ---
Dr. Gallito Becerra at bedside Discussing plan of care with patient and this RN. New orders received. Will continue to monitor Q1 hour and PRN.
[2019-10-24 09:00] VITALS: BP 115/63
[2019-10-24] MEDS: PANTOPRAZOLE 40 MG TAB PO SCH ×2 (09:16→21:59)
[2019-10-24 13:11] VITALS: BP 100/56
--- NOTE | 2019-10-24 15:41 | NUR ---
Dr. Washington at nurse station MD updating this RN on plan of care, patient to have EGD tomorrow. Will continue to monitor Q1 hour and PRN.
[2019-10-24 17:30] VITALS: BP 104/64
--- NOTE | 2019-10-24 18:50 | NUR ---
consents signed and placed in patients chart
--- NOTE | 2019-10-24 19:10 | NUR ---
Opening Shift Note Assumed care of patient, awake and alert. Instructed on POC and to call for assist PRN, will continue to monitor for changes Q1hr and PRN. bed in lowest and locked position with rails up x3. pt oriented to use of call light for assistance.
--- NOTE | 2019-10-24 19:15 | NUR ---
Closing Note Report given to film processing shift supervisor RN. No signs or symptoms noted at this time.
[2019-10-24] MEDS: TEMAZEPAM 15 MG CAP PO PRN (20:54)
[2019-10-24 22:00] VITALS: BP 119/77
[2019-10-24] MEDS: TAMOXIFEN CITR 10 MG TAB PO SCH (22:00)
[2019-10-25] MEDS: PIPERACILLIN-TAZOB 3.375GM 100 ML IV SCH ×4 (00:17→17:26)
[2019-10-25] MEDS: HYDROcodone-ACET 5/325MG TAB PO PRN (05:03)
[2019-10-25 05:15] VITALS: BP 119/70
--- NOTE | 2019-10-25 08:00 | NUR ---
Received call from GI lab to report that EGD has been re-schedule for tomorrow and a covid test has been ordered.
--- NOTE | 2019-10-25 08:00 | NUR ---
Received pt resting in bed, call light within reach, rt upper chest IV leaking, paged the mid line nurse to insert mid line.
[2019-10-25 08:37] VITALS: BP 102/57
--- NOTE | 2019-10-25 09:20 | NUR ---
Dr. Becerra at bed side to see pt, doctor discussed the plan of care with pt.
[2019-10-25] MEDS: PANTOPRAZOLE 40 MG TAB PO SCH (10:03)
[2019-10-25] MEDS: SODIUM CHLORIDE 0.9% 1,000 ML IV SCH (11:28)
--- NOTE | 2019-10-25 11:31 | NUR ---
Nasal swab obtained and taken to lab for inhouse COVID.
--- NOTE | 2019-10-25 12:30 | NUR ---
Called and spoke to Dr. Washington / MOISÉS to ask if pt can have a regular diet, pt does not want the clear liquid diet and is requesting for her to ge regular diet. Orders received to give pt regular diet.
[2019-10-25 12:45] VITALS: BP 121/69
--- NOTE | 2019-10-25 12:46 | NUR ---
Nutrition Assessment Notes Please refer to link for full assessment notes. Est Energy needs: 4241-0755 kcals (14-18 kcal/kgBW) Est Protein needs: 75-100 gms/day (1.5-2.0 gm/kgIBW) d/t pt adiposity Will continue to monitor and reassess prn. Addendum: 10/25/19 at [address] Amended: Links added.
--- NOTE | 2019-10-25 13:52 | NUR ---
Midline Placement: Patient educated on need for midline placement. All risks and benefits explained and all questions and concerns addresses prior to procedure. 18g/10cm midline inserted via right basilic vein using Ultrasound. Sterile technique utilized. Blood return obtained from lumen and flushed easily with NS using proper technique. Midline secured with saline lock; biodisc and occlusive dressing applied. Primary RN notified. Midline lot #[id number]
[2019-10-25 14:21] LABS: INR 0.96 (0.9-1.15)
[2019-10-25 17:00] VITALS: BP 113/85
[2019-10-25] MEDS: PROMETHAZINE HCL 25 MG/ML 1ML IV PRN (18:01)
--- NOTE | 2019-10-25 19:10 | NUR ---
Opening Shift Note Assumed care of patient, awake and alert. No S/S of distress/SOB or pain. Instructed on POC and to call for assist PRN, will continue to monitor for changes Q1hr and PRN. bed in lowest and locked position with rails up x3. pt oriented to use of call light for assistance.
[2019-10-25 22:00] VITALS: BP 98/55
[2019-10-25 23:57] VITALS: BP 117/64
[2019-10-26] MEDS: TAMOXIFEN CITR 10 MG TAB PO SCH (00:25)
[2019-10-26] MEDS: PIPERACILLIN-TAZOB 3.375GM 100 ML IV SCH ×2 (00:26→05:30)
[2019-10-26] MEDS: PANTOPRAZOLE 40 MG TAB PO SCH ×2 (00:26→10:00)
[2019-10-26 04:51] VITALS: BP 115/70
[2019-10-26] MEDS: SODIUM CHLORIDE 0.9% 1,000 ML IV SCH (05:30)
[2019-10-26 08:36] VITALS: BP 106/56
--- NOTE | 2019-10-26 09:15 | NUR ---
Patient taken to Pre-op via hospital bed, no distress noted at time of departure.
[2019-10-26] MEDS ORDERED: diphenhdrAMINE HCL 50 MG/1 ML VL ONE (09:34)
[2019-10-26] MEDS ORDERED: LIDOCAINE VISCOUS 2% 15ML UD ONE (09:34)
[2019-10-26] MEDS ORDERED: SODIUM CHLORIDE LOCK 10 ML ONE (09:34)
[2019-10-26] MEDS: fentaNYL CITRATE 100 MCG/2 ML VL ONE ×2 (09:44→09:48)
[2019-10-26] MEDS: MIDAZOLAM HCL 5 MG/ML-1ML VIAL ONE ×3 (09:44→09:53)
[2019-10-26 12:33] VITALS: BP 115/70
[2019-10-26 13:00] VITALS: BP 137/85
--- NOTE | 2019-10-26 13:00 | NUR ---
Patient discharged via wheelchair, along with all personal belongings, no distress noted at time of departure.
== END 2019-10-26 14:00 | disposition home or self-care (01) | DRG 392 ==
LOC: EDBD 17:58 → ER 17:58 → OVERFLOW 17:59 → EEVIPCON 17:59 → CENTRAL 10-22 02:30
PROVIDERS: ADMIT Hospitalist; ATTEND Family Medicine
PROC: 0D758ZZ Dilation of Esophagus, Via Natural or Artificial Opening Endoscopic (ICD-10-PCS; 2019-10-26)
PROC: 0DB68ZX Excision of Stomach, Via Natural or Artificial Opening Endoscopic, Diagnostic (ICD-10-PCS; principal; 2019-10-26 09:43)
DX: K29.70 Gastritis, unspecified, without bleeding (principal); K57.92 Diverticulitis of intestine, part unspecified, without perforation or abscess without bleeding; K44.9 Diaphragmatic hernia without obstruction or gangrene; D72.829 Elevated white blood cell count, unspecified; E66.01 Morbid (severe) obesity due to excess calories; F17.210 Nicotine dependence, cigarettes, uncomplicated; I10 Essential (primary) hypertension; K21.9 Gastro-esophageal reflux disease without esophagitis; Z20.828 Contact with and (suspected) exposure to other viral communicable diseases; K22.2 Esophageal obstruction; Z82.49 Family history of ischemic heart disease and other diseases of the circulatory system; Z85.3 Personal history of malignant neoplasm of breast; Z88.3 Allergy status to other anti-infective agents; Z90.13 Acquired absence of bilateral breasts and nipples; Z90.710 Acquired absence of both cervix and uterus
CPT/HCPCS: 36415; 71045; 71260; 74177; 80048; 80053; 80061; 81001; 82150; 83605; 83690; 83735; 84484; 85025; 85610; 87040; 93005; G0378; J0696; J2250; J2405; J2543

== ENCOUNTER 2020-02-07 10:32 | Inpatient (IN) | payer BC, MEDICAID ==
[~2020-02-07] VITALS: Ht 157.5 cm; Wt 85.4 kg
[2020-02-07] MEDS ORDERED: ONDANSETRON HCL 4 MG/2 ML VIAL IV ONE (11:00)
[2020-02-07] MEDS ORDERED: SODIUM CHLORIDE 0.9% 500 ML IVB ONE (11:00)
[2020-02-07] MEDS ORDERED: HYDROmorphone HCL 2 MG/ML VL IV ONE (11:00)
[2020-02-07 11:18] LABS: Basophils # (auto) 0.1 10 ^3/uL (0-0.2); Eosinophils # (auto) 0 10 ^3/uL (0-0.8); Eosinophils % (auto) 0.3 % (0.0-7.0); Hematocrit 39.5 % (36.0-46.0); Hemoglobin 13.3 g/dL (12.2-16.2); Lymphocytes # (auto) 1.5 10 ^3/uL (0.4-5.4); Lymphocytes % (auto) 14.5 % (10.0-50.0); Mean Corpuscular Hemoglobin 30.7 pg (28.0-32.0); Mean Corpuscular Hgb Conc. 33.6 g/dL (32.0-36.0); Mean Corpuscular Volume 91.4 fL (80.0-100.0); Monocytes # (auto) 0.6 10 ^3/uL (0-1.3); Monocytes % (auto) 5.8 % (0.0-12.0); Neutrophils % (auto) 78.4 % (37.0-80.0); Platelet Count (auto) 214 10^3/uL (140-450); Red Blood Cells 4.32 10^6/uL (4.0-5.20); Red Cell Distribution Width 14.3 % (11.8-14.3); White Blood Cell 10.2 10^3/uL (4.4-10.8)
[2020-02-07 11:35] LABS: Albumin 3.3 g/dL (3.4-5.0); Calcium 8.8 mg/dL (8.5-10.1); Potassium 3.6 mmol/L (3.5-5.1)
[2020-02-07 11:39] LABS: BUN/Creatinine Ratio 12.5; Bilirubin, Total 0.7 mg/dL (0.2-1.0); Total Protein 7.2 g/dL (6.4-8.2)
[2020-02-07] MEDS ORDERED: VANCOMYCIN 1GM/250ML 250 ML IV ONE (11:45)
[2020-02-07] MEDS ORDERED: cefTRIAXone 1GM/50ML D5W 50 ML IV ONE (11:45)
[2020-02-07] MEDS ORDERED: PROMETHAZINE HCL 25 MG/ML 1ML ONE (12:27)
[2020-02-07 12:28] LABS: Urine Bacteria NONE SEEN /hpf (None Seen); Urine Blood Negative /uL (Negative); Urine Mucus FEW (None Seen); Urine Specific Gravity 1.017 (1.001-1.035); Urine WBC <1 /hpf (0 - 5)
[2020-02-07] MEDS ORDERED: PROMETHAZINE HCL 25 MG/ML 1ML IV ONE (12:45)
[2020-02-07] MEDS ORDERED: NITROGLYCERIN 0.4 MG SL TAB SL PRN ×2 (14:00→14:15)
[2020-02-07] MEDS ORDERED: MORPHINE SULF INJ 2 MG/ML SYRINGE 1ML IV PRN ×2 (14:00→14:15)
[2020-02-07] MEDS ORDERED: HYDROcodone-ACET 5/325MG TAB PO PRN (14:15)
[2020-02-07] MEDS ORDERED: PIPERACILLIN-TAZOB 3.375GM 100 ML IV ONE (14:15)
[2020-02-07] MEDS ORDERED: LORazepam 0.5 MG TAB PO PRN (14:15)
[2020-02-07] MEDS ORDERED: SODIUM CHLORIDE 0.9% 1,000 ML IV ONE (14:15)
[2020-02-07] MEDS ORDERED: ONDANSETRON HCL 4 MG/2 ML VIAL IV PRN (14:15)
[2020-02-07] MEDS ORDERED: SODIUM CHLORIDE 0.9% 1,000 ML IV SCH (14:15)
[2020-02-07] MEDS ORDERED: DOCUSATE SOD 100 MG CAP PO PRN (14:15)
[2020-02-07] MEDS ORDERED: ALUM & MAG HYDROX-SIMETH LIQ(MAALOX) 30 ML PO PRN (14:15)
[2020-02-07] MEDS ORDERED: ACETAMINOPHEN 325 MG TAB PO PRN (14:15)
[2020-02-07] MEDS ORDERED: LEVO-28 PO (14:27)
[2020-02-07] MEDS: D5W 5% 1,000 ML IV SCH ×2 (15:00→23:00)
[2020-02-07] MEDS: KETOROLAC TROMETH 30 MG/ML 1ML VIAL IV PRN ×2 (15:32→19:18)
--- NOTE | 2020-02-07 19:50 | NUR ---
MS admit from ER JIMENEZ,SILVESTRE admitted to tele/MS after SBAR received. Patient oriented to SERGE ASH, primary RN, abby Mendoza B, and unit policies regarding patient care and visiting hours. Pt awake and alert x 4. No S/S of distress/SOB complain of pain. Tele box matches pt all leads in place. Bed lowered and locked side rails up x 2. Call light and bedside table in reach. Insructed on POC and to callfor assist PRN, will continue to monitor for changes Q1hr and PRN.
[2020-02-07] MEDS ORDERED: METOCLOPRAMIDE HCL 5MG/ml INJ 2ml VIAL IV PRN (20:00)
[2020-02-07 20:15] VITALS: BP 131/67
[2020-02-07] MEDS ORDERED: TEMAZEPAM 15 MG CAP PO PRN (20:15)
--- NOTE | 2020-02-07 20:25 | NUR ---
Spoke with Dr. Hurtado received orders read back verified, will carry out
[2020-02-07] MEDS: PIPERACILLIN-TAZOB 3.375GM 100 ML IV SCH (21:34)
[2020-02-07] MEDS: HYDROmorphone HCL 2 MG/ML VL IV PRN (21:35)
[2020-02-07 21:43] LABS: INR 1.03 (0.9-1.15)
[2020-02-07 22:00] VITALS: BP 131/79
[2020-02-07] MEDS: PROMETHAZINE HCL 25 MG/ML 1ML IV PRN (22:02)
[2020-02-08] MEDS: PIPERACILLIN-TAZOB 3.375GM 100 ML IV SCH ×4 (03:00→21:00)
[2020-02-08 05:00] VITALS: BP 138/81
--- NOTE | 2020-02-08 05:20 | NUR ---
Called Dr. Benoit Order for midline and to advise unable to give medications
--- NOTE | 2020-02-08 08:00 | NUR ---
Opening note Assumed care of patient from NOC RN. Patient is Aox4 on room air. Patient found crying and stated "I haven't had pain medication since last night, they tried an IV once and never again my IV does not work." Informed patient IV will be initiated. Bed is in lowest locked position, call light within reach and side rails up x2. Updated patient on plan of care and patient verbalized understanding. Will continue to monitor.
[2020-02-08 09:00] VITALS: BP 131/74
--- NOTE | 2020-02-08 09:00 | NUR ---
IV insertion IV access obtained, via clean sterile technique by inserting 24 gauge catheter at right wrist after 4 attempts. IV secured properly. No trauma to site. Patient tolerated well.
[2020-02-08] MEDS: HYDROmorphone HCL 2 MG/ML VL IV PRN ×3 (10:22→20:16)
[2020-02-08] MEDS: PROMETHAZINE HCL 25 MG/ML 1ML IV PRN ×2 (10:23→20:17)
[2020-02-08] MEDS: D5W 5% 1,000 ML IV SCH ×3 (11:51→23:00)
[2020-02-08 13:00] VITALS: BP 156/90
--- NOTE | 2020-02-08 13:52 | NUR ---
call back received call back from Dr. Benoit. Will follow through with new orders.
[2020-02-08] MEDS: ACETAMINOPHEN 500 MG TAB PO PRN (14:23)
--- NOTE | 2020-02-08 14:26 | NUR ---
Nutrition consult/assessment Note please see attached link for complete assessment Est energy needs ABW 70 [id number] kcal (20-23 kcal/kg ABW), Est protein needs: 70-77 g (1.0-1.1 g/kg ABW). Will Reassess prn Addendum: 02/08/20 at [address] Amended: Links added.
--- NOTE | 2020-02-08 15:00 | NUR ---
Midline Placement: Patient educated on need for midline placement. All risks and benefits explained and all questions and concerns addresses prior to procedure. 18g/10 cm midline inserted via RIGHT BASILIC vein using Ultrasound. Sterile technique utilized. Blood return obtained from THE SINGLE lumen and flushed easily with NS using proper technique. Midline secured with saline lock; biodisc and occlusive dressing applied. Primary RN notified. Midline lot # [id number]
[2020-02-08 17:00] VITALS: BP 149/77
--- NOTE | 2020-02-08 19:15 | NUR ---
Opening Shift Note Received report from rock Spencer RN. Assumed care of patient, awake and alert. No S/S of distress/SOB, but c/o pain to Left lower abdominal pain. Will give pain medication as ordered. Instructed on POC and to call for assist PRN, will continue to monitor for changes Q1hr and PRN. Bed placed in lowest position and call light within reach.
--- NOTE | 2020-02-08 19:15 | NUR ---
END OF SHIFT NOTE CARE ENDORSED TO NOC RN. NO S/S OF DISTRESS NOTED.
[2020-02-08 22:00] VITALS: BP 151/82
[2020-02-09] MEDS: HYDROmorphone HCL 2 MG/ML VL IV PRN ×5 (02:15→21:12)
[2020-02-09] MEDS: PROMETHAZINE HCL 25 MG/ML 1ML IV PRN ×3 (02:16→21:12)
[2020-02-09] MEDS: PIPERACILLIN-TAZOB 3.375GM 100 ML IV SCH ×4 (02:58→20:14)
--- NOTE | 2020-02-09 04:17 | NUR ---
Pain medication given for pain to right face of 8/10. Will monitor
--- NOTE | 2020-02-09 05:10 | NUR ---
Patient is resting in bed with eyes closed, no distress noted and patient just received pain med at 0417. Addendum: 02/09/20 at 0511 by CATHERINE MOORE RN RN wrong patient
--- NOTE | 2020-02-09 05:11 | NUR ---
Patient is resting in bed with eyes closed. No distress noted.
[2020-02-09 05:14] VITALS: BP 125/76
--- NOTE | 2020-02-09 05:55 | NUR ---
Patient is restless trying to get out and into bed. Advise patient to stay in bed and assisted patient in bed and covered up 5 times this morning. Will monitor Addendum: 02/09/20 at 0559 by CATHERINE MOORE RN RN wrong patient
[2020-02-09] MEDS: D5W 5% 1,000 ML IV SCH (06:34)
--- NOTE | 2020-02-09 08:05 | NUR ---
OPENING SHIFT NOTE: PATIENT RESTING IN BED, AWAKE, A/OX4. RESPIRATIONS EVEN AND UNLABORED. PATIENT UPDATED ON PLAN OF CARE, AWAITING GI CONSULT. PATIENT MEDICATED FOR PAIN BY NOC RN, REPORTS 7/10 IN RIGHT LOWER QUADRANT, DULL PAIN. FALL PRECAUTIONS IN PLACE, CALL LIGHT WITHIN REACH, WILL CONTINUE TO MONITOR.
[2020-02-09 09:00] VITALS: BP 140/76
[2020-02-09 13:00] VITALS: BP 141/72
--- NOTE | 2020-02-09 13:00 | NUR ---
TEMP: PATIENT INSISTING THIS RN TO CHECK TEMP. PATIENT 99.9 ORALLY, NOTED TO HAVE LAYERS OF BLANKETS ON, THIS RN REMOVED BLANKETS AND INSTRUCTED ON COOLING MEASURES.
[2020-02-09] MEDS: HYDROcodone-ACET 5/325MG TAB PO PRN ×2 (15:47→20:14)
--- NOTE | 2020-02-09 16:19 | NUR ---
CALL MADE TO MD CABRERA: VOICEMAIL LEFT REGARDING PATIENT MOOD, INSITANT ON WBC COUNT, REPEAT CT, AND TEMP. WILL CONTINUE TO MONITOR.
[2020-02-09 17:00] VITALS: BP 168/74
[2020-02-09] MEDS: ALPRAZolam 0.5 MG TAB PO SCH (18:23)
[2020-02-09] MEDS: DOCUSATE SOD 100 MG CAP PO PRN (18:23)
[2020-02-09 19:04] LABS: Basophils # (auto) 0.1 10 ^3/uL (0-0.2); Basophils % (auto) 0.6 % (0.0-2.0); Eosinophils # (auto) 0 10 ^3/uL (0-0.8); Eosinophils % (auto) 0.1 % (0.0-7.0); Hemoglobin 12.3 g/dL (12.2-16.2); Lymphocytes # (auto) 1.1 10 ^3/uL (0.4-5.4); Lymphocytes % (auto) 9.5 % (10.0-50.0); Mean Corpuscular Hemoglobin 30.5 pg (28.0-32.0); Mean Corpuscular Hgb Conc. 33.3 g/dL (32.0-36.0); Mean Corpuscular Volume 91.5 fL (80.0-100.0); Monocytes # (auto) 0.7 10 ^3/uL (0-1.3); Monocytes % (auto) 5.9 % (0.0-12.0); Neutrophils % (auto) 83.9 % (37.0-80.0); Platelet Count (auto) 186 10^3/uL (140-450); Red Blood Cells 4.04 10^6/uL (4.0-5.20); Red Cell Distribution Width 13.9 % (11.8-14.3); White Blood Cell 11.9 10^3/uL (4.4-10.8)
--- NOTE | 2020-02-09 19:04 | NUR ---
CARE ENDORSED TO GEOVANY KAPADIA.
--- NOTE | 2020-02-09 19:30 | NUR ---
Opening Shift Note Assumed care of patient, awake and alert. No S/S of distress/SOB or pain. Insructed on POC and to callfor assist PRN, will continue to monitor for changes Q1hr and PRN. Fall and safety precautions in place. Call light within reach.
[2020-02-09 21:44] VITALS: BP 114/69
[2020-02-10] MEDS: HYDROmorphone HCL 2 MG/ML VL IV PRN ×5 (01:56→21:23)
[2020-02-10] MEDS: PIPERACILLIN-TAZOB 3.375GM 100 ML IV SCH ×4 (02:54→21:07)
[2020-02-10] MEDS: ACETAMINOPHEN 500 MG TAB PO PRN ×2 (04:41→22:05)
[2020-02-10] MEDS: HYDROcodone-ACET 5/325MG TAB PO PRN (04:46)
[2020-02-10 05:18] VITALS: BP 106/59
--- NOTE | 2020-02-10 07:31 | NUR ---
OPENING SHIFT NOTE: PATIENT RESTING IN BED, ASLEEP EASILY AWOKEN, A/OX4. RESPIRATIONS EVEN AND UNLABORED. PATIENT UPDATED ON PLAN OF CARE. FALL PRECAUTIONS IN PLACE, CALL LIGHT WITHIN REACH, WILL CONTINUE TO MONITOR.
[2020-02-10 08:18] LABS: Basophils # (auto) 0.1 10 ^3/uL (0-0.2); Basophils % (auto) 0.6 % (0.0-2.0); Eosinophils # (auto) 0 10 ^3/uL (0-0.8); Eosinophils % (auto) 0.1 % (0.0-7.0); Hematocrit 38.6 % (36.0-46.0); Hemoglobin 12.6 g/dL (12.2-16.2); Lymphocytes # (auto) 1.6 10 ^3/uL (0.4-5.4); Lymphocytes % (auto) 12.7 % (10.0-50.0); Mean Corpuscular Hemoglobin 29.8 pg (28.0-32.0); Mean Corpuscular Hgb Conc. 32.7 g/dL (32.0-36.0); Mean Corpuscular Volume 91.3 fL (80.0-100.0); Monocytes # (auto) 0.8 10 ^3/uL (0-1.3); Monocytes % (auto) 6.3 % (0.0-12.0); Neutrophils # (auto) 9.8 10 ^3/uL (1.6-8.6); Neutrophils % (auto) 80.3 % (37.0-80.0); Platelet Count (auto) 218 10^3/uL (140-450); Red Blood Cells 4.23 10^6/uL (4.0-5.20); Red Cell Distribution Width 13.9 % (11.8-14.3); White Blood Cell 12.2 10^3/uL (4.4-10.8)
[2020-02-10 08:37] LABS: Albumin 2.8 g/dL (3.4-5.0); Calcium 8.8 mg/dL (8.5-10.1); Potassium 3.4 mmol/L (3.5-5.1)
[2020-02-10 08:45] LABS: BUN/Creatinine Ratio 8.6; Bilirubin, Total 0.8 mg/dL (0.2-1.0); CRP High Sensitivity 15.8 mg/dL (< 0.3); Total Protein 6.8 g/dL (6.4-8.2)
[2020-02-10] MEDS: PROMETHAZINE HCL 25 MG/ML 1ML IV PRN ×2 (08:47→16:01)
[2020-02-10 09:00] VITALS: BP 103/79
[2020-02-10] MEDS ORDERED: POTASSIUM CHL 20 Meq TABLET PO ONE (09:00)
[2020-02-10] MEDS: ALPRAZolam 0.5 MG TAB PO SCH ×3 (10:35→22:05)
[2020-02-10] MEDS ORDERED: VANCOMYCIN PER PHARMACY 0 MG IV SCH (11:00)
--- NOTE | 2020-02-10 11:19 | NUR ---
MD CABRERA ROUNDING.
[2020-02-10] MEDS ORDERED: VANCOMYCIN 1GM/250ML 250 ML IV ONE (12:00)
[2020-02-10 13:00] VITALS: BP 127/68
--- NOTE | 2020-02-10 14:38 | NUR ---
Nutrition Followup Notes Wt 73.2 kg Pt was with MD at bedside. per records pt anxious crying. per records pt needs colectomy. pt is currently on soft diet with inadequate PO of <0% x 3 per RN doc Est energy needs ABW 70 [id number] kcal (20-23 kcal/kg ABW), Est protein needs: 70-77 g (1.0-1.1 g/kg ABW). Will Reassess prn Labs: ALB 2.8 L BM: Pt with no BM noted per RN note Skin: BS 18 mod risk, full details in pet care assistant note PES: Altered nutrition related lab values r.t current chronic medical condition aeb mild hypoalb Decreased nutrient needs r/t adiposity aeb pt`s high BMI of 36.6 kgm2 Comments: Will continue to monitor PO status, skin status, pertinent labs and weight trends. Will f/u in 3-5 days 1) refer to [employer] dietitian on DC. 2) consider ensure enlive 1 carton bid. 3) continue current plan of care
[2020-02-10 16:35] VITALS: BP 118/77
[2020-02-10] MEDS: DOCUSATE SOD 100 MG CAP PO PRN (16:59)
--- NOTE | 2020-02-10 18:50 | NUR ---
CALL FROM Keisha LOPEZ, CHANGING DIET TO FULL LIQUID.
--- NOTE | 2020-02-10 19:08 | NUR ---
Care endorsed to noc jamey Uribe.
[2020-02-10] MEDS: VANCOMYCIN 1GM/250ML 250 ML IV SCH (21:07)
--- NOTE | 2020-02-10 21:50 | NUR ---
MD FONTANEZ Called and spoke with MD Fontanez regarding patient's request for medication. New orders received, read back and verified. Will input and carry out.
[2020-02-10 22:00] VITALS: BP 106/60
[2020-02-10] MEDS: SIMETHICONE 80 MG CHEWABLE TABLET PO PRN (22:32)
[2020-02-11] MEDS: PIPERACILLIN-TAZOB 3.375GM 100 ML IV SCH ×4 (02:21→21:21)
[2020-02-11] MEDS: HYDROmorphone HCL 2 MG/ML VL IV PRN ×5 (04:37→20:12)
[2020-02-11 05:16] VITALS: BP 116/76
[2020-02-11] MEDS: PROMETHAZINE HCL 25 MG/ML 1ML IV PRN ×2 (08:05→20:12)
[2020-02-11] MEDS: VANCOMYCIN 1GM/250ML 250 ML IV SCH ×2 (08:05→20:14)
[2020-02-11 09:03] VITALS: BP 107/56
[2020-02-11] MEDS: ENOXAPARIN SOD 40 MG/0.4 ML SYRINGE SC SCH (10:15)
[2020-02-11] MEDS: ALPRAZolam 0.5 MG TAB PO SCH ×2 (10:15→21:10)
[2020-02-11] MEDS: HYDROcodone-ACET 5/325MG TAB PO PRN ×3 (10:17→17:48)
[2020-02-11] MEDS: SIMETHICONE 80 MG CHEWABLE TABLET PO PRN ×2 (10:20→21:22)
[2020-02-11 10:53] LABS: Hematocrit 35.4 % (36.0-46.0); Hemoglobin 11.8 g/dL (12.2-16.2); Mean Corpuscular Hemoglobin 30.6 pg (28.0-32.0); Mean Corpuscular Hgb Conc. 33.4 g/dL (32.0-36.0); Mean Corpuscular Volume 91.7 fL (80.0-100.0); Platelet Count (auto) 212 10^3/uL (140-450); Red Blood Cells 3.86 10^6/uL (4.0-5.20); Red Cell Distribution Width 13.4 % (11.8-14.3); White Blood Cell 12.9 10^3/uL (4.4-10.8)
[2020-02-11 11:03] LABS: Basophils % (manual) 0 (0.0-2.0); Blast Cells 0; Eosinophils % (manual) 0 (0-7); Metamyelocytes % 0; Myelocytes % 0; Promyelocytes % 0; Reactive Lymphocytes 0
[2020-02-11 11:12] LABS: GFR African American 131 mL/min; GFR Non-African American 108 mL/min
[2020-02-11 11:22] LABS: Band Neutrophils % (manual) 2; Lymphocytes % (manual) 14 (10.0-50.0); Monocytes % (manual) 4 (0-12)
[2020-02-11 11:27] LABS: CRP High Sensitivity > 19.0 mg/dL (< 0.3)
[2020-02-11 13:00] VITALS: BP 102/59
[2020-02-11 17:00] VITALS: BP 92/45
--- NOTE | 2020-02-11 17:55 | NUR ---
sonya umana hand tire trimmer unable to get lab, when the other hand tire trimmer is done in ER they will try to get lab
--- NOTE | 2020-02-11 20:12 | NUR ---
Opening Shift Note Assumed care of patient, awake and alert. No S/S of distress/SOB c/o abdominal pain 10/06. Instructed on POC and to call for assist PRN, will continue to monitor for changes Q1hr and PRN.Medicated with Hydromorphone 0.5mg.i.v.p. and Phenergan 12.5mg.i.v.p.as needed for pain and nausea.
[2020-02-11 22:33] VITALS: BP 115/71
[2020-02-12] MEDS: HYDROmorphone HCL 2 MG/ML VL IV PRN ×9 (00:31→22:14)
[2020-02-12] MEDS: PIPERACILLIN-TAZOB 3.375GM 100 ML IV SCH ×3 (02:23→15:00)
[2020-02-12] MEDS: PROMETHAZINE HCL 25 MG/ML 1ML IV PRN ×4 (03:09→23:10)
[2020-02-12] MEDS: HYDROcodone-ACET 5/325MG TAB PO PRN ×5 (03:13→23:09)
[2020-02-12] MEDS: VANCOMYCIN 1GM/250ML 250 ML IV SCH ×2 (03:57→14:09)
[2020-02-12 05:00] VITALS: BP 104/60
[2020-02-12 07:22] LABS: Basophils # (auto) 0 10 ^3/uL (0-0.2); Basophils % (auto) 0.4 % (0.0-2.0); Eosinophils # (auto) 0 10 ^3/uL (0-0.8); Eosinophils % (auto) 0.5 % (0.0-7.0); Hematocrit 34.8 % (36.0-46.0); Hemoglobin 11.6 g/dL (12.2-16.2); Lymphocytes # (auto) 1.3 10 ^3/uL (0.4-5.4); Lymphocytes % (auto) 15.7 % (10.0-50.0); Mean Corpuscular Hemoglobin 30.2 pg (28.0-32.0); Mean Corpuscular Hgb Conc. 33.4 g/dL (32.0-36.0); Mean Corpuscular Volume 90.5 fL (80.0-100.0); Monocytes # (auto) 0.7 10 ^3/uL (0-1.3); Monocytes % (auto) 8.1 % (0.0-12.0); Neutrophils # (auto) 6.4 10 ^3/uL (1.6-8.6); Neutrophils % (auto) 75.3 % (37.0-80.0); Nucleated Red Blood Cells % 0.2 %; Platelet Count (auto) 226 10^3/uL (140-450); Red Blood Cells 3.84 10^6/uL (4.0-5.20); Red Cell Distribution Width 13.4 % (11.8-14.3); White Blood Cell 8.5 10^3/uL (4.4-10.8)
--- NOTE | 2020-02-12 07:23 | NUR ---
Report given to Jacklyn Herring, patient is resting no respiratory distress.
[2020-02-12 07:43] LABS: Albumin 2.6 g/dL (3.4-5.0); BUN/Creatinine Ratio 5.7; Bilirubin, Total 0.4 mg/dL (0.2-1.0); Calcium 8.5 mg/dL (8.5-10.1); Total Protein 6.8 g/dL (6.4-8.2)
--- NOTE | 2020-02-12 07:48 | NUR ---
Critical lab value called to Dr. Benoit awaiting orders.
[2020-02-12 07:57] LABS: Potassium 2.8 mmol/L (3.5-5.1)
[2020-02-12 09:00] VITALS: BP_SYST 113; BP_SYST 116; BP_DIAS 67; BP_DIAS 69
[2020-02-12] MEDS: ENOXAPARIN SOD 40 MG/0.4 ML SYRINGE SC SCH (09:15)
[2020-02-12] MEDS: ALPRAZolam 0.5 MG TAB PO SCH ×2 (09:15→20:58)
[2020-02-12] MEDS ORDERED: POTASSIUM CHLORIDE 60 MEQ, LIDOCAINE 1% (LOCAL ANESTH.) 6 ML in SODIUM CHL 0.9% 500 ML IV ONE (10:15)
[2020-02-12] MEDS ORDERED: IOHEXOL 300 MG/ML 100ML BOTTLE IJ ONE (10:22)
[2020-02-12 13:00] VITALS: BP 104/59
--- NOTE | 2020-02-12 13:20 | NUR ---
at bedside discussing POC with patient.
[2020-02-12] MEDS ORDERED: TPN PER PHARMACY 0 ML IV SCH (13:45)
[2020-02-12] MEDS: DOCUSATE SOD 100 MG CAP PO PRN (14:10)
[2020-02-12 17:00] VITALS: BP 104/65
--- NOTE | 2020-02-12 19:40 | NUR ---
provided report to jamey Good. patient was given nausea prn medication as ordered per request by pt. patient requested pain medication, advised it was too early, endorsed to jamey good.
[2020-02-12] MEDS ORDERED: AMINO ACID INFUSION IN D5W 2,000 ML IV NR (20:00)
--- NOTE | 2020-02-12 20:00 | NUR ---
patient is transferred to room 209 at this time.
--- NOTE | 2020-02-12 20:10 | NUR ---
Opening Shift Note Assumed care of patient, awake and alert. No S/S of distress/SOB or pain. Bed locked in the lowest position, side rails up X2, call light within reach. Instructed on POC and to call for assist PRN, will continue to monitor for changes Q1hr and PRN.
[2020-02-13] MEDS ORDERED: DEXTROSE (50%) 50ML SYRG IV SCH
[2020-02-13] MEDS: PIPERACILLIN-TAZOB 3.375GM 100 ML IV SCH ×5 (00:03→19:56)
[2020-02-13] MEDS: VANCOMYCIN 1GM/250ML 250 ML IV SCH ×2 (00:04→09:40)
[2020-02-13] MEDS: HYDROmorphone HCL 2 MG/ML VL IV PRN ×10 (00:09→21:36)
[2020-02-13] MEDS: ACCU-CHEK COMFORT CURVE STRIP VI SCH ×5 (00:12→23:11)
[2020-02-13] MEDS: DOCUSATE SOD 100 MG CAP PO PRN ×2 (00:21→09:40)
[2020-02-13] MEDS: ACETAMINOPHEN 500 MG TAB PO PRN (00:27)
[2020-02-13] MEDS: HYDROcodone-ACET 5/325MG TAB PO PRN ×3 (03:13→23:03)
[2020-02-13] MEDS: InsuLIN REG 1unit/0.01ml Soln (100units/ml) SC SCH ×5 (04:57→23:11)
[2020-02-13 05:00] VITALS: BP 103/67
[2020-02-13] MEDS: PROMETHAZINE HCL 25 MG/ML 1ML IV PRN ×3 (06:10→18:54)
[2020-02-13 06:35] LABS: Basophils # (auto) 0 10 ^3/uL (0-0.2); Basophils % (auto) 0.6 % (0.0-2.0); Eosinophils # (auto) 0.1 10 ^3/uL (0-0.8); Hematocrit 35.7 % (36.0-46.0); Hemoglobin 11.8 g/dL (12.2-16.2); Lymphocytes # (auto) 1.3 10 ^3/uL (0.4-5.4); Lymphocytes % (auto) 14.7 % (10.0-50.0); Mean Corpuscular Hemoglobin 30.2 pg (28.0-32.0); Mean Corpuscular Volume 91.7 fL (80.0-100.0); Monocytes # (auto) 0.8 10 ^3/uL (0-1.3); Monocytes % (auto) 8.7 % (0.0-12.0); Neutrophils # (auto) 6.7 10 ^3/uL (1.6-8.6); Nucleated Red Blood Cells % 0.1 %; Platelet Count (auto) 233 10^3/uL (140-450); Red Cell Distribution Width 13.9 % (11.8-14.3); White Blood Cell 8.9 10^3/uL (4.4-10.8)
--- NOTE | 2020-02-13 07:29 | NUR ---
Opening Shift Note Assumed care of patient, awake and alert. No S/S of distress/SOB. Patient complaining of 10/10 pain. will medicate per eMAR Bed locked in the lowest position, side rails up X2, call light within reach. Instructed on POC and to call for assist PRN, will continue to monitor for changes Q1hr and PRN.
[2020-02-13] MEDS: ENOXAPARIN SOD 40 MG/0.4 ML SYRINGE SC SCH (08:32)
[2020-02-13 09:00] VITALS: BP 123/66
[2020-02-13] MEDS: SIMETHICONE 80 MG CHEWABLE TABLET PO PRN (09:40)
[2020-02-13] MEDS: ALPRAZolam 0.5 MG TAB PO SCH ×2 (09:41→21:02)
--- NOTE | 2020-02-13 09:49 | NUR ---
PAGED MD MACHADO RE: MD CABRERA REQUESTING MD MACHADO TO RE-ASSESS PATIENT FOR SURGERY. AWAITING CALL BACK
[2020-02-13 10:16] LABS: Albumin 2.4 g/dL (3.4-5.0); Calcium 8.4 mg/dL (8.5-10.1); Magnesium 2.2 mg/dL (1.6-2.6)
--- NOTE | 2020-02-13 10:16 | NUR ---
MD MACHADO RETURNED CALL NEW ORDERS RECEIVED. WILL IMPLEMENT NEW ORDERS PER PROTOCAL
[2020-02-13 10:19] LABS: BUN/Creatinine Ratio 4.5; Bilirubin, Total 0.3 mg/dL (0.2-1.0); Phosphorus 2.5 mg/dL (2.5-4.90); Pre Albumin 4.4 mg/dL (20.0-40.0); Total Protein 6.6 g/dL (6.4-8.2)
--- NOTE | 2020-02-13 10:31 | NUR ---
ROUNDING MD CABRERA AT BEDSIDE. ALL QUESTIONS AND CONCERNS ADDRESSED AT THIS TIME.
[2020-02-13] MEDS ORDERED: GASTROGRAFIN 120 ML SOL ONE (10:59)
[2020-02-13 11:39] LABS: Partial Thromboplastin Time 29.4 sec (23.0-31.2)
--- NOTE | 2020-02-13 11:48 | NUR ---
Patient off unit for procedure
--- NOTE | 2020-02-13 12:35 | NUR ---
Nutrition Consult/ Followup Notes Wt 73.2 kg Pt was off the floor for procedure per RN. pt to have sx for her diverticulitis. pt is currently NPO and will began PN support from madeleine per records. pt was on CLD with inadequate PO of < 25% x 4 per RN doc Est energy needs ABW 70 [id number] kcal (20-23 kcal/kg ABW), Est protein needs: 70-77 g (1.0-1.1 g/kg ABW). Will Reassess prn Labs: ALB 2.6 L, GLU 124 H BM: Pt with no BM noted per RN note Skin: BS 18 mod risk, full details in career placement specialist note PES: Altered nutrition related lab values r.t current chronic medical condition aeb mild hypoalb Decreased nutrient needs r/t adiposity aeb pt`s high BMI of 36.6 kgm2 Comments: Will continue to monitor PO status, PN tolerance, skin status, pertinent labs and weight trends. Will f/u in 2-3-5 days 1) refer to [employer] dietitian on DC. 2) advance PN support to meet > 755 of needs. 3) continue current plan of care
[2020-02-13 13:00] VITALS: BP 117/70
[2020-02-13] MEDS ORDERED: LIDOCAINE 1% (LOCAL ANESTH.) PF 5ml SDV ID ONE (15:15)
--- NOTE | 2020-02-13 15:23 | NUR ---
PICC line placement Patient/Patient significant other educated on need for PICC line placement. All risks and benefits explained and all questions and concerns addressed prior to procedure. Noted past medical history and allergies with no contraindications. INR and Plt counts within acceptable range. 5 fr PICC line inserted via RIGHT BASILIC vein using [employer] US and Tip Location System. Sterile technique with maximum barrier precautions utilized. Blood return obtained from each of THE TWO lumens and each flushed easily with NS using proper technique. PICC secured with Stat-lock; biodisc and occlusive dressing applied. Stat portable chest x-ray obtained for PICC tip placement. PRIMARY RN KATHY AWARE. *Baseline Arm Circumference 36 CM INTERNAL LENGTH 39 CM EXTERNAL LENGTH 0 CM PICC lot # [id number]
[2020-02-13] MEDS: POTASSIUM CHL 20MEQ/100ML 100 ML IV SCH ×2 (15:27→17:31)
--- NOTE | 2020-02-13 16:06 | NUR ---
Nasogastric tube insertion Patient educated on need for NG tube. All questions addressed. NGT inserted per MD order. Placement verified by aspiration of stomach contents, auscultation and chest xray.
--- NOTE | 2020-02-13 16:07 | NUR ---
PAGED MD CABRERA RE: PATIENT COMPLAINING OF WORSENING PAIN WITH NO RELEIF FROM Q2 0.5MG DILAUDID. AWAITING CALL BACK
--- NOTE | 2020-02-13 16:15 | NUR ---
OK to use PICC line Xray completed. OK to use PICC line. PRIMARY RN KATHY NOTIFIED.
[2020-02-13 17:00] VITALS: BP 117/70
--- NOTE | 2020-02-13 17:05 | NUR ---
NG TUBE ADVANCED TO 65CM FROM 55CM PER XRAY RECOMMENDATION
--- NOTE | 2020-02-13 18:35 | NUR ---
PATIENT CALLED RN TO ROOM UPON ASSESSMENT PATIENT IS IN THE BATHROOM CRYING AND CROUCHED OVER WHILE GUARDING HER STOMACH WITH HER HANDS AND STATES " IM IN SO MUCH PAIN AND I JUST CANT HANDLE THIS TUBE IN MY NOSE. I NEEDED TO GO PEE AND IT STARTED FALLING OUT BECAUSE THE STICKER CAME OFF". RN WILL MEDICATE PATIENT PER eMAR
--- NOTE | 2020-02-13 19:00 | NUR ---
Opening Shift Note Assumed care of patient, awake and alert. Patient on room air with no S/S of distress/SOB or pain. Bed locked in the lowest position, side rails up x2, call light within reach. Instructed on POC and to call for assist PRN, will continue to monitor for changes Q1hr and PRN.
[2020-02-13 20:00] VITALS: BP 115/63
[2020-02-13] MEDS ORDERED: PPN PER PHARMACY IV NR ×9 (20:00)
[2020-02-13] MEDS: SODIUM CHLOR 0.9% PF (SALINE LOCK) 10ML VIAL/SYR IV SCH (21:02)
[2020-02-13 21:39] VITALS: BP 115/63
--- NOTE | 2020-02-13 22:50 | NUR ---
ROUNDS PATIENT STATES, "MY GOWN IS SOAKING WET." PROVIDED NEW GOWN AND LINENS. PATIENT NOW RESTING ON HER RIGHT SIDE WITH NO SIGNS OF DISTRESS/ SOB AT THIS TIME. CONTINUE CARE.
--- NOTE | 2020-02-13 22:58 | NUR ---
PAIN MANAGEMEMNT PATIENT STATES, "LETS GET ME THE NORCO SO I DON'T END UP LIKE I DID YESTERDAY. STAY ON TOP OF IT AND KEEP IT COMING EVERY 4 HOURS" 5/10 SHARP PAIN PER PATIENT
[2020-02-14] MEDS: PROMETHAZINE HCL 25 MG/ML 1ML IV PRN ×3 (01:39→20:26)
[2020-02-14] MEDS: HYDROmorphone HCL 2 MG/ML VL IV PRN ×5 (01:40→20:26)
[2020-02-14] MEDS: SIMETHICONE 80 MG CHEWABLE TABLET PO PRN ×2 (01:53→10:30)
[2020-02-14] MEDS ORDERED: VANCOMYCIN 1GM/250ML 250 ML IV SCH (02:00)
--- NOTE | 2020-02-14 02:03 | NUR ---
NG TUBE FAILED AFTER 1 ATTEMPT VIA RIGHT NARE, PATIENT MOVING AND CRYING THEN REFUSING NG TUBE PLACEMENT. CONTINUE CARE.
[2020-02-14] MEDS: PIPERACILLIN-TAZOB 3.375GM 100 ML IV SCH ×2 (03:21→10:12)
--- NOTE | 2020-02-14 03:31 | NUR ---
ROUNDS PATIENT RESTING IN THE LOW FOWLERS FOWLERS POSITION ON HER LEFT SIDE. NO SIGNS OF DISTRESS/ SOB AT THIS TIME. CONTINUE CARE.
[2020-02-14] MEDS: HYDROcodone-ACET 5/325MG TAB PO PRN ×2 (04:19→10:13)
[2020-02-14 05:00] VITALS: BP 103/64
[2020-02-14] MEDS: InsuLIN REG 1unit/0.01ml Soln (100units/ml) SC SCH ×4 (05:27→23:36)
[2020-02-14] MEDS: ACCU-CHEK COMFORT CURVE STRIP VI SCH ×4 (05:27→23:27)
--- NOTE | 2020-02-14 06:02 | NUR ---
NG TUBE EDUCATED THE IMPORTANCE OF INSERTING NG TUBE, PT STATES "I DONT WANT THAT TUBE IN MY MOUTH. I AM NOW BLEEDING FROM MY MOUTH FROM WHAT YOU DID" ASSESSED ORAL CAVITY, NO SIGNS OF BLEEDING OR TRAUMA. WILL CONTINUE CARE.
[2020-02-14 06:23] LABS: Basophils # (auto) 0.1 10 ^3/uL (0-0.2); Basophils % (auto) 0.9 % (0.0-2.0); Eosinophils # (auto) 0.1 10 ^3/uL (0-0.8); Eosinophils % (auto) 0.7 % (0.0-7.0); Hematocrit 31.9 % (36.0-46.0); Hemoglobin 10.9 g/dL (12.2-16.2); Lymphocytes # (auto) 1.1 10 ^3/uL (0.4-5.4); Lymphocytes % (auto) 12.6 % (10.0-50.0); Mean Corpuscular Hemoglobin 30.5 pg (28.0-32.0); Mean Corpuscular Volume 89.7 fL (80.0-100.0); Monocytes # (auto) 0.6 10 ^3/uL (0-1.3); Monocytes % (auto) 6.8 % (0.0-12.0); Neutrophils # (auto) 6.9 10 ^3/uL (1.6-8.6); Platelet Count (auto) 277 10^3/uL (140-450); Red Blood Cells 3.56 10^6/uL (4.0-5.20); Red Cell Distribution Width 13.8 % (11.8-14.3); White Blood Cell 8.7 10^3/uL (4.4-10.8)
[2020-02-14 06:39] LABS: Albumin 2.3 g/dL (3.4-5.0); Calcium 8.4 mg/dL (8.5-10.1); Magnesium 2.3 mg/dL (1.6-2.6)
[2020-02-14 06:43] LABS: BUN/Creatinine Ratio 10.7; Bilirubin, Total 0.2 mg/dL (0.2-1.0); Phosphorus 2.2 mg/dL (2.5-4.90); Total Protein 6.3 g/dL (6.4-8.2)
[2020-02-14 06:46] LABS: Potassium 2.7 mmol/L (3.5-5.1)
--- NOTE | 2020-02-14 06:52 | NUR ---
PAGED K+ 2.7 WAITING FOR CALL BACK
[2020-02-14 08:00] VITALS: BP 159/81
--- NOTE | 2020-02-14 08:00 | NUR ---
Per report, patients NGT came out accidently on prior shift. Multiple attempts made by pig farmer to reinsert. Patient did not tolerate well. Patient does not want NGT if possible. Dr Benoit paged by pig farmer RN. Will notify once return call received.
--- NOTE | 2020-02-14 08:30 | NUR ---
Potassium level 2.7. Patient remains without NGT at this time. Dr Benoit paged to make aware of both. Patient free of s/s of hypokalemia. Awaiting orders. Will monitor patient closely.
[2020-02-14 09:00] VITALS: BP 159/81
[2020-02-14] MEDS ORDERED: POTASSIUM CHLORIDE 60 MEQ, LIDOCAINE 1% (LOCAL ANESTH.) 6 ML in SODIUM CHL 0.9% 500 ML IV ONE (09:30)
--- NOTE | 2020-02-14 09:50 | NUR ---
Patient states she voided tablespoon size diarrhea. Spoke with Dr Jordan in regards to NGT.
[2020-02-14] MEDS: ENOXAPARIN SOD 40 MG/0.4 ML SYRINGE SC SCH (10:11)
[2020-02-14] MEDS: DOCUSATE SOD 100 MG CAP PO PRN (10:11)
[2020-02-14] MEDS: SODIUM CHLOR 0.9% PF (SALINE LOCK) 10ML VIAL/SYR IV SCH ×2 (10:12→22:21)
[2020-02-14] MEDS: ALPRAZolam 0.5 MG TAB PO SCH ×2 (10:12→22:21)
--- NOTE | 2020-02-14 12:15 | NUR ---
NGT NGT inserted to right nare and taped at 46 cm. Patient tolerated poor. Awaiting CXR results prior to placing patient on suction.
--- NOTE | 2020-02-14 12:30 | NUR ---
MD ranulfo Martinez returned page. RN updated doctor on patient status. Telephone order read back and noted. Patient transferred to telemetry. Will infuse IV potassium.
[2020-02-14] MEDS ORDERED: POTASSIUM PHOSPHATE 22 MEQ in SODIUM CHL 0.9% 100 ML IV ONE (13:15)
[2020-02-14] MEDS ORDERED: POTASSIUM PHOSPHATE IV ONE (13:15)
[2020-02-14 13:47] VITALS: BP 139/67
--- NOTE | 2020-02-14 14:10 | NUR ---
CXR results recommend advancement of 10-15 cm. Attempted to advance NGT, patient tolerated poorly, gaging, vomiting and crying. NGT coiled in mouth. Tube will not advance, resistance met. Patient requests to stop advancement. Patient crying, stating "I can't do this". Dr Jordan made aware and states to call Dr Washington with GI for placement. Dr Washington made aware.
[2020-02-14] MEDS ORDERED: BENZOCAINE (DENTAL) 20 % SPRAY 60ML MT ONE (15:00)
[2020-02-14] MEDS ORDERED: LORazepam 2MG/ML-1ML VIAL IV ONE (15:15)
--- NOTE | 2020-02-14 15:51 | NUR ---
NGT PLACED Dr Washington explained orders for NGT insertion to patient with RN at bedside. Patient was premedicated for comfort prior to insertion. NGT placed to left nare after one attempt, taped at 77cm. Placement verified with auscultation, KUB ordered to verify placement. Patient tolerated fair. Bed placed in locked and lowest position, call light in reach.
[2020-02-14 17:22] VITALS: BP 141/74
--- NOTE | 2020-02-14 17:42 | NUR ---
NGT/KUB Results received from x-ray department. NGT retracted 10 cm as requested and taped at 68 cm, connected to LCS as ordered by Dr Jordan. Results of exam called into Dr Jordan.
[2020-02-14] MEDS ORDERED: MEROPENEM 1GM IVPB 100 ML IV SCH (18:08)
[2020-02-14] MEDS ORDERED: PPN PER PHARMACY IV NR ×8 (20:00)
--- NOTE | 2020-02-14 20:30 | NUR ---
MD ELEAZAR Martinez at bedside at this time, updating patient on plan of care. New orders received, read back and verified. Will input and carry out. 2044: New order for repeat potassium lab draw placed per written order by MD Martinez.
[2020-02-14] MEDS: SODIUM CHLORIDE 0.9% 1,000 ML IV SCH (20:32)
[2020-02-14] MEDS: TPN PER PHARMACY IV NR ×8 (20:32)
[2020-02-14] MEDS ORDERED: IOHEXOL 300 MG/ML 100ML BOTTLE IJ ONE (21:26)
--- NOTE | 2020-02-14 21:30 | NUR ---
CT Patient taken down for CT scan via wheelchair
--- NOTE | 2020-02-14 21:40 | NUR ---
CT Patient brought back up to floor from CT scan via wheelchair
[2020-02-14 22:00] VITALS: BP 122/71
--- NOTE | 2020-02-14 22:15 | NUR ---
CT RESULTS Received call from outside radiology. CT results up and per Dr. Modesto Botello, "results non-emergent" and "pull back NG tube 6cm and do follow up KUB." Will inform MD in AM
[2020-02-14] MEDS: MEROPENEM 1GM IVPB 100 ML IV SCH (22:20)
--- NOTE | 2020-02-14 23:05 | NUR ---
CRITICAL Received call from Keegan in lab, patient's critical potassium 2.9. New orders inputted per MD Martinez's communication order (see order history). Will carry out
[2020-02-14] MEDS: POTASSIUM CHL 20MEQ/100ML 100 ML IV SCH (23:14)
--- NOTE | 2020-02-14 23:15 | NUR ---
NG TUBE Readjusted patient's NG tube per radiology recommendation. Patient's NG currrently marked at 70cm at nare. NG pulled back to 64cm and secured. Patient tolerated well. NG tube connected to LCS per MD order. Will continue to monitor
[2020-02-15] VITALS (28 sets, daily range): BP systolic 120–196; BP diastolic 63–103
[2020-02-15] MEDS: HYDROmorphone HCL 2 MG/ML VL IV PRN ×4 (00:29→12:19)
[2020-02-15] MEDS: POTASSIUM CHL 20MEQ/100ML 100 ML IV SCH ×5 (00:33→19:33)
[2020-02-15] MEDS: PROMETHAZINE HCL 25 MG/ML 1ML IV PRN ×2 (03:04→09:19)
--- NOTE | 2020-02-15 05:00 | NUR ---
LAB Spoke with plating and point assembly supervisor and informed her patient still infusing IV potassium at this time. Requested plating and point assembly supervisor to come back around 0700 to draw patient when infusion is finished. Gynecological Assistant agreed.
[2020-02-15] MEDS: MEROPENEM 1GM IVPB 100 ML IV SCH ×2 (05:56→21:44)
[2020-02-15] MEDS: ACCU-CHEK COMFORT CURVE STRIP VI SCH ×3 (05:56→19:00)
[2020-02-15] MEDS: InsuLIN REG 1unit/0.01ml Soln (100units/ml) SC SCH ×3 (05:58→19:15)
[2020-02-15] MEDS: SODIUM CHLORIDE 0.9% 1,000 ML IV SCH (06:01)
--- NOTE | 2020-02-15 06:45 | NUR ---
MD JORDAN Attempted to call Dr. Jordan per Dr. Kallie Martinez's request. Trial Manager stated Dr. Jordan does not have an answering service and is not page-able. Will inform day shift RN to call Dr. Jordan around 0800
--- NOTE | 2020-02-15 06:55 | NUR ---
NG DRAINAGE Total gastric drainage into suction canister is 150ml. Suction canister marked and output documented (see intake and output). Will inform day shift RN
--- NOTE | 2020-02-15 07:30 | NUR ---
RECEIVED REPORT FROM NIGHT NURSE. PATIENT RESTING IN BED, COMPLAINING OF PAIN 11/06, REQUESTING DILAUDID, DILAUDID NOT DUE YET. WILL CONTINUE TO MONITOR.
--- NOTE | 2020-02-15 08:10 | NUR ---
PATIENT UP USING THE COMMODE. SMALL LIQUID BOWEL MOVEMENT.
--- NOTE | 2020-02-15 09:15 | NUR ---
SPOKE WITH DR. MACHADO, UPDATED HIM ON PATIENT'S STATUS. HE WILL BE IN TO SEE THE PATIENT LATER TODAY.
[2020-02-15] MEDS: ENOXAPARIN SOD 40 MG/0.4 ML SYRINGE SC SCH (09:20)
[2020-02-15] MEDS: ALPRAZolam 0.5 MG TAB PO SCH ×2 (09:20→21:47)
[2020-02-15 09:23] LABS: Basophils # (auto) 0 10 ^3/uL (0-0.2); Basophils % (auto) 0.4 % (0.0-2.0); Eosinophils # (auto) 0 10 ^3/uL (0-0.8); Eosinophils % (auto) 0.3 % (0.0-7.0); Hematocrit 34.2 % (36.0-46.0); Hemoglobin 11.4 g/dL (12.2-16.2); Lymphocytes % (auto) 9.6 % (10.0-50.0); Mean Corpuscular Hemoglobin 30.2 pg (28.0-32.0); Mean Corpuscular Hgb Conc. 33.5 g/dL (32.0-36.0); Mean Corpuscular Volume 90.1 fL (80.0-100.0); Monocytes # (auto) 0.8 10 ^3/uL (0-1.3); Neutrophils # (auto) 8.5 10 ^3/uL (1.6-8.6); Neutrophils % (auto) 81.7 % (37.0-80.0); Platelet Count (auto) 304 10^3/uL (140-450); Red Blood Cells 3.79 10^6/uL (4.0-5.20); Red Cell Distribution Width 13.9 % (11.8-14.3); White Blood Cell 10.4 10^3/uL (4.4-10.8)
[2020-02-15 09:43] LABS: Albumin 2.2 g/dL (3.4-5.0); Calcium 8.1 mg/dL (8.5-10.1); Magnesium 2.2 mg/dL (1.6-2.6)
[2020-02-15 09:49] LABS: BUN/Creatinine Ratio 13.1; Bilirubin, Total 0.2 mg/dL (0.2-1.0); Phosphorus 2.2 mg/dL (2.5-4.90); Total Protein 6.2 g/dL (6.4-8.2)
[2020-02-15 09:53] LABS: Potassium 2.7 mmol/L (3.5-5.1)
--- NOTE | 2020-02-15 09:58 | NUR ---
CRITICAL VALUE POTASSIUM 2.7, ORDERS PLACED PER COMMUNICATION ORDER FOR REPLACEMENT POTASSIUM 60 MEQ, 20MEG BAGS X3
[2020-02-15] MEDS: SODIUM CHLOR 0.9% PF (SALINE LOCK) 10ML VIAL/SYR IV SCH ×2 (10:55→21:47)
--- NOTE | 2020-02-15 10:56 | NUR ---
Nutrition Followup Notes Wt 92.2 kg Pt was sleeping when rounded this morning. Pt is currently NPO with TPN @ 62 ml/hr providing 1570 kcals, 70g protein and 1290 NPCs. PN support meets 98-112% of est energy needs and 91-100% of est protein needs. Noted pt had 150ml of gastric drainage this am per RN note. Est energy needs ABW 70 [id number] kcal (20-23 kcal/kg ABW), Est protein needs: 70-77 g (1.0-1.1 g/kg ABW). Will Reassess prn Labs: K 2.9 L, GLU 151 H, all other new lab results pending BM: Pt with no BM noted per RN note Skin: BS 18 mod risk, full details in career development specialist note PES: Altered nutrition related lab values r.t current chronic medical condition aeb mild hypoalb Decreased nutrient needs r/t adiposity aeb pt`s high BMI of 36.6 kgm2 Comments: Will continue to monitor PO status, PN tolerance, skin status, pertinent labs and weight trends. Will f/u in 2-3 days 1) Refer to [employer] dietitian on DC. 2) Advance PN support to meet > 75% of needs. (Resolved) 3) Gradually advance pt diet when medically feasible , as tolerated and per MD approval 3) Continue current plan of care
--- NOTE | 2020-02-15 11:29 | NUR ---
ACCU-CHECK ACCU-CHECK 137, PATIENT REFUSED INSULIN.
--- NOTE | 2020-02-15 12:25 | NUR ---
DR. MACHADO AT BEDSIDE.
[2020-02-15] MEDS ORDERED: POVIDONE IODINE 10 % TOPICAL OINT 30GM TOP ONE (12:59)
--- NOTE | 2020-02-15 14:17 | NUR ---
SPOKE WITH PATIENT'S DAUGHTER PORSCHE, UPDATED HER ON POC. PORSCHE HAS QUESTIONS CONCERNING SURGERY SCHEDULED TODAY, WILL NOTIFY OR TEAM/ DR. MACHADO.
--- NOTE | 2020-02-15 14:20 | NUR ---
SPOKE WITH DR. Ed BUSH, UPDATED HIM ON PATIENT STATUS.
--- NOTE | 2020-02-15 15:15 | NUR ---
PRE-OP PREP COMPLETE. PATIENT TAKEN DOWN TO OR FOR PROCEDURE.
[2020-02-15] MEDS ORDERED: POTASSIUM CHL 20MEQ/100ML 200 ML IV ONE (15:20)
[2020-02-15] MEDS ORDERED: MIDAZOLAM HCL 1MG/1ML-2 ML VIAL ONE ×2 (15:28→17:49)
[2020-02-15] MEDS ORDERED: ETOMIDATE (2MG/ML) 20ML VIAL IV ONE (15:30)
[2020-02-15] MEDS ORDERED: fentaNYL CITRATE 100 MCG/2 ML VL ONE (15:32)
[2020-02-15] MEDS ORDERED: ROCURONIUM 10MG/ML 10ML VIAL IV ONE (15:33)
[2020-02-15] MEDS ORDERED: POTASSIUM PHOSP 22MEQ(15MMOLE) in NS 100 ML IV ONE (16:00)
[2020-02-15] MEDS ORDERED: METOPROLOL TARTRATE 1MG/1ML-5ML VIAL IV ONE (16:11)
[2020-02-15] MEDS ORDERED: MEPERIDINE HCL (50 MG/ML) 1 ML VIAL ONE (16:13)
[2020-02-15] MEDS ORDERED: MIDAZOLAM HCL 1MG/1ML-2 ML VIAL IV PRN (17:45)
[2020-02-15] MEDS ORDERED: NALOXONE HCL 0.4 MG/ML VIAL IV PRN (17:45)
[2020-02-15] MEDS ORDERED: hydrALAZINE HCL 20 MG/ML VL IV PRN (17:45)
[2020-02-15] MEDS ORDERED: ONDANSETRON HCL 4 MG/2 ML VIAL IV PRN (17:45)
[2020-02-15] MEDS ORDERED: ACCU-CHEK COMFORT CURVE STRIP VI ONE (17:45)
[2020-02-15] MEDS ORDERED: HYDROmorphone HCL 2 MG/ML VL IV PRN ×2 (17:45)
--- NOTE | 2020-02-15 18:00 | NUR ---
Received SBAR report from KANG Montanez. Vent requested and set up in room, room is ready to accept pt., will cont.to anticipate pt arrival.
[2020-02-15] MEDS ORDERED: LORazepam 2MG/ML-1ML VIAL IV PRN (18:15)
[2020-02-15] MEDS ORDERED: MORPHINE SULFATE 4 MG/ML SYR/VIAL IV PRN (18:15)
--- NOTE | 2020-02-15 18:25 | NUR ---
Received pt from OR, report received per KANG Montanez. pt. attached to monitor and reading sinus tachycardia 100's, otherwise VSS, will cont.to monitor for any changes, assessment ongoing.
--- NOTE | 2020-02-15 18:28 | NUR ---
MD Dr. LARA PAGED. MESSAGE LEFT AT EXCHANGE, AWAITING CALL BACK FOR FURTHER ORDERS.
--- NOTE | 2020-02-15 18:30 | NUR ---
Dr Martinez notified of pt arrival, new orders received for pain/sedation control, will cont.to monitor for effectiveness, Dr. Rod notified of pt. arrival and to be consulted on pt. case, message left for Dr. Rod, will cont.to monitor for changes, assessment ongoing.
--- NOTE | 2020-02-15 18:32 | NUR ---
Respiratory note: SPUTUM SENT TO LAB
--- NOTE | 2020-02-15 18:32 | NUR ---
MD DR. BUSH CALLED BACK, SPEAKING WITH ALVA TO GIVE FURTHER ORDERS.
[2020-02-15] MEDS: PROPOFOL 100 ML IV SCH ×2 (18:55→22:23)
[2020-02-15] MEDS: fentaNYL Drip 2500mCg/250mlNS 250 ML IV SCH (18:55)
--- NOTE | 2020-02-15 19:10 | NUR ---
No distress noted, pt. report given to KANG French. Care of pt assumed per NOC RN, Day shift RN relinquished care and signed off.
[2020-02-15] MEDS: TPN PER PHARMACY IV NR ×8 (19:54)
[2020-02-15] MEDS ORDERED: TPN PER PHARMACY IV NR ×9 (20:00)
[2020-02-15] MEDS ORDERED: IPRATROPIUM BROM 0.5 MG/2.5ML INH SOL NEB SCH (22:00)
[2020-02-15] MEDS: ALBUTEROL SULF 2.5 MG/0.5ML(0.5%) NEB SOLN NEB SCH (22:10)
[2020-02-15] MEDS: IPRATROPIUM BROM 0.5 MG/2.5ML INH SOL NEB SCH (22:10)
[2020-02-15 22:37] LABS: Magnesium 1.8 mg/dL (1.6-2.6)
[2020-02-15] MEDS: MAGNESIUM SULFATE 1GM/100ML 100 ML IV SCH (23:13)
[2020-02-16] VITALS (95 sets, daily range): BP systolic 86–148; BP diastolic 51–85
[2020-02-16] MEDS: MAGNESIUM SULFATE 1GM/100ML 100 ML IV SCH (00:21)
[2020-02-16] MEDS: ACCU-CHEK COMFORT CURVE STRIP VI SCH ×4 (00:28→18:00)
[2020-02-16] MEDS: InsuLIN REG 1unit/0.01ml Soln (100units/ml) SC SCH ×4 (00:30→18:39)
[2020-02-16] MEDS: PROPOFOL 100 ML IV SCH ×3 (02:05→09:58)
[2020-02-16 04:28] LABS: Basophils # (auto) 0 10 ^3/uL (0-0.2); Basophils % (auto) 0.2 % (0.0-2.0); Eosinophils # (auto) 0 10 ^3/uL (0-0.8); Hematocrit 32.8 % (36.0-46.0); Hemoglobin 10.8 g/dL (12.2-16.2); Lymphocytes # (auto) 0.6 10 ^3/uL (0.4-5.4); Lymphocytes % (auto) 5.5 % (10.0-50.0); Mean Corpuscular Hgb Conc. 32.9 g/dL (32.0-36.0); Mean Corpuscular Volume 91.1 fL (80.0-100.0); Monocytes # (auto) 0.8 10 ^3/uL (0-1.3); Monocytes % (auto) 6.8 % (0.0-12.0); Neutrophils # (auto) 9.8 10 ^3/uL (1.6-8.6); Neutrophils % (auto) 87.5 % (37.0-80.0); Platelet Count (auto) 285 10^3/uL (140-450); Red Cell Distribution Width 14.2 % (11.8-14.3); White Blood Cell 11.2 10^3/uL (4.4-10.8)
[2020-02-16 04:48] LABS: Albumin 1.7 g/dL (3.4-5.0); Calcium 7.3 mg/dL (8.5-10.1); Magnesium 2.8 mg/dL (1.6-2.6); Potassium 3.6 mmol/L (3.5-5.1)
[2020-02-16 04:53] LABS: BUN/Creatinine Ratio 15.9; Bilirubin, Total 0.1 mg/dL (0.2-1.0); Phosphorus 3.2 mg/dL (2.5-4.90); Total Protein 5.1 g/dL (6.4-8.2)
[2020-02-16] MEDS: MEROPENEM 1GM IVPB 100 ML IV SCH ×3 (05:44→21:36)
--- NOTE | 2020-02-16 08:30 | NUR ---
FAMILY Received phone call from patients daughter Thisa, correct password provided and updated on patient condition.
[2020-02-16] MEDS: ALBUTEROL SULF 2.5 MG/0.5ML(0.5%) NEB SOLN NEB SCH ×4 (08:47→18:22)
[2020-02-16] MEDS: IPRATROPIUM BROM 0.5 MG/2.5ML INH SOL NEB SCH ×4 (08:47→18:22)
[2020-02-16] MEDS: fentaNYL Drip 2500mCg/250mlNS 250 ML IV SCH (09:57)
[2020-02-16] MEDS: ALPRAZolam 0.5 MG TAB PO SCH ×2 (10:00→21:37)
[2020-02-16] MEDS: ENOXAPARIN SOD 40 MG/0.4 ML SYRINGE SC SCH (10:20)
[2020-02-16] MEDS: PANTOPRAZOLE 40 MG/10 ML VIAL INJ IV SCH (10:20)
[2020-02-16] MEDS: SODIUM CHLOR 0.9% PF (SALINE LOCK) 10ML VIAL/SYR IV SCH ×2 (10:21→21:36)
--- NOTE | 2020-02-16 10:30 | NUR ---
Wound care Wound care nurse at bedside to assess skin. Patient tolerated well. Will continue to monitor patient.
--- NOTE | 2020-02-16 10:33 | NUR ---
WOUND CARE NOTE: Wound care in to see patient for skin integrity monitoring due to intubation status,putting patient to high risk for skin breakdown. Patient is 54 years old female with admitting diagnosis of Acute Diverticulitis. Patient is resting in ICU low air loss bed in . 111. Patient is intubated, sedated and mechanically ventilated. Patient appears to be in no pain using Moore Martin Faces Pain Scale. Her Yves score is 15. Skin assessment done with the assistance of another nurse, KANG Falcon. Patient has no wound other than abdominal incision s/p Exploratory laparotomy, colectomy and colostomy by Rita Jordan, yesterday 02/15/20. Patient's abdominal incision with C/D/I wound dressing and intact colostomy bag. Patient originally admitted to [facility]/telemetry unit, admitted to ICU yesterday 02/15/20 from O.R. No other wound noted, no other pressure injury noted. Patient is receiving BID/PRN cleaning and application of Barrier cream to sacral, buttocks as preventative. Repositioned patient for comfort facing her Lt side, redistributed pressure points with pillows. Patient tolerated well. RECOMMENDATION: Nursing to continue with BID/PRN cleaning and application of Barrier cream to sacral buttocks as preventative, frequent turning and repositioning schedule as condition permits, redistribute pressure points with pillows, elevate heels on pillows, continue monitoring by wound care while patient is intubated. Addendum: 02/16/20 at 1555 by Johanna Rdz RN Amended: Links added.
--- NOTE | 2020-02-16 10:40 | NUR ---
MD Dr. Jordan at bedside updated on patient condition with no new orders other than CPAP trial if okay with Dr. Rod. Will notify Dr. Rod that Surgeon is okay with CPAP trial today.
--- NOTE | 2020-02-16 11:30 | NUR ---
FAMILY Received phone call from patients daughter Thisa, correct password provided and updated on patient condition.
[2020-02-16] MEDS: HYDROmorphone HCL 2 MG/ML VL IV PRN ×4 (12:34→21:22)
--- NOTE | 2020-02-16 12:45 | NUR ---
CPAP TRIAL RT Pebbles placed patient on CPAP trial. Patient tolerating well at this time.
--- NOTE | 2020-02-16 12:58 | NUR ---
assessment Ting is a 54 year old female in ICU on a vent. Per patients daughter Thisa prior to admission patient lived home with family and was independent. Per Thisa patient has diverticulosis and has been suffering with abdominal pain for some time now so family called 911 and patient was admitted and is now on a vent. Patients PCP is Dr Hernandez. Patient has no advanced directive. I informed Thisa I will continue to monitor and follow up as appropriate for any post discharge needs once patient has been extubated. Thisa verbalized understanding. Addendum: 02/16/20 at 1301 by Karla Nowak SS Amended: Links added. Addendum: 02/21/20 at 1044 by RENETTA GONZALEZ SS Re-assessment Per patient states she has good family support at home and she is requesting for home physical therapy post discharge.
--- NOTE | 2020-02-16 14:00 | NUR ---
PATIENT EXTUBATED PER R.T. PER DR MENDENHALL ORDER AFTER CPAP ABG'S CALLED TO MD. PATIENT PLACED ON O2@40% PER COOL MIST MASK. NAVIGATION OFFICER INSTRUCTED PATIENT NOT TO ATTEMPT TO TALK TO PREVENT VOCAL CORD SWELLING - NODDED HEAD IN AGREEMENT. MUCH REASSURANCE AND ENCOURAGEMENT GIVEN.
--- NOTE | 2020-02-16 14:15 | NUR ---
MD Paged Dr. Jordan to increase pain medication, awaiting for MD to call back.
--- NOTE | 2020-02-16 14:25 | NUR ---
MD Dr. Jordan called back and aware of increase pain changed time interval on pain medication and gave one dose of Toradol. This RN to input into system. Will continue to monitor patient closely.
[2020-02-16] MEDS ORDERED: KETOROLAC TROMETH 30 MG/ML 1ML VIAL IV ONE (14:30)
[2020-02-16] MEDS: PROMETHAZINE HCL 25 MG/ML 1ML IV PRN (14:53)
--- NOTE | 2020-02-16 16:55 | NUR ---
FAMILY Received phone call from patients daughter Thisa, correct password provided and updated on patient condition.
--- NOTE | 2020-02-16 18:00 | NUR ---
OUTPUT CAN:25ML NML COLOSTOMY:650ML URINE:450ML
[2020-02-16] MEDS ORDERED: TPN PER PHARMACY IV NR ×8 (20:00)
--- NOTE | 2020-02-16 20:00 | NUR ---
ADMITTED WITH ACUTE DIVERTICULITIS. DR MACHADO PERFORMED SURGERY ON THIS PATIENT ON 02/15/20. RESECTION OF RECTOSIGMOID AND TRANSVERSE COLON WITH COLOSTOMY. HAS TELEMETRY DOWNGRADE ORDERS IF SHE IS ON 3LNP OR LESS. ALERT. ORIENTED. CALIX. SINUS TACHYCARDIA 101. 3LNP WITH AN O2 SATURATION OF 99%. STRICT NPO. LEFT NARE NGT TO LOW INTERMITTENT SUCTION. COLOSTOMY IS DRAINING. ALL PULSES PALPABLE. SCDS ON. TPN TO BE STARTED.
--- NOTE | 2020-02-16 21:00 | NUR ---
PATIENT IS COMPLAINING OF ABDOMINAL PAIN. DILAUDID GIVEN AT 2124. ANXIETY NOTED. ATIVAN GIVEN WELL.
[2020-02-16] MEDS: LORazepam 2MG/ML-1ML VIAL IV PRN (21:39)
--- NOTE | 2020-02-16 21:48 | NUR ---
RT IN ROOM. NOTED ABDOMINAL INCISIONAL DRESSING IS VERY LOOSE AND ALMOST OFF. NEW DRESSING APPLIED AT INCISIONAL SITE AND AT CAN SITE.
--- NOTE | 2020-02-16 22:00 | NUR ---
PLACED ON ROOM AIR. NGT TO LIS. VERY LITTLE DRNG IN TUBING. ONLY 100CC OF URINE IN REYES SO FAR. CAN HAS A TINY AMOUNT OF WATERY SANGUINOUS DRNG. INCISION IS WELL APPROXIMATED. COLOSTOMY BAG EMPTIED WITH 160CC OF BROWNISH GREEN LIQUID STOOL. PATIENT'S PAIN IS MORE CONTROLLED. LESS ANXIETY.
--- NOTE | 2020-02-16 22:33 | NUR ---
PATIENT IS QUIETLY SLEEPING . NSR 99 WITHOUT ECTOPY.
--- NOTE | 2020-02-16 22:41 | NUR ---
PATIENT'S TRANSFER TO TELEMETRY IS ON HOLD UNTIL FURTHER NOTICE DUE TO STAFFING ISSUES
[2020-02-17] VITALS (35 sets, daily range): BP systolic 95–172; BP diastolic 43–75
--- NOTE | 2020-02-17 | NUR ---
WAKING UP. REQUESTING PAIN MEDICATION. STATES THAT IT'S THE WHOLE ABDOMEN THAT HURTS. CAN, INCISION AND COLOSTOMY ARE THE SOURCE OF PAIN. VSS. NSR WITHOUT ECTOPY.
[2020-02-17] MEDS: HYDROmorphone HCL 2 MG/ML VL IV PRN ×5 (00:22→20:20)
[2020-02-17] MEDS: LORazepam 2MG/ML-1ML VIAL IV PRN ×3 (01:27→10:31)
--- NOTE | 2020-02-17 04:00 | NUR ---
AM LABS SENT. PAIN MEDICATION GIVEN WITH ATIVAN. ST WITHOUT ECTOPY. ROOM AIR SATURATION 97%. SLEEPS/SNORES. WAKES UP AND COUGHS NONPRODUCTIVELY.
[2020-02-17 05:16] LABS: Basophils # (auto) 0 10 ^3/uL (0-0.2); Basophils % (auto) 0.3 % (0.0-2.0); Eosinophils # (auto) 0 10 ^3/uL (0-0.8); Eosinophils % (auto) 0.2 % (0.0-7.0); Hematocrit 28.5 % (36.0-46.0); Hemoglobin 9.1 g/dL (12.2-16.2); Lymphocytes # (auto) 1.1 10 ^3/uL (0.4-5.4); Lymphocytes % (auto) 7.8 % (10.0-50.0); Mean Corpuscular Hemoglobin 29.2 pg (28.0-32.0); Mean Corpuscular Volume 91.1 fL (80.0-100.0); Monocytes % (auto) 7.2 % (0.0-12.0); Neutrophils # (auto) 11.4 10 ^3/uL (1.6-8.6); Neutrophils % (auto) 84.5 % (37.0-80.0); Platelet Count (auto) 256 10^3/uL (140-450); Red Blood Cells 3.13 10^6/uL (4.0-5.20); Red Cell Distribution Width 14.2 % (11.8-14.3); White Blood Cell 13.5 10^3/uL (4.4-10.8)
[2020-02-17 05:36] LABS: Albumin 1.7 g/dL (3.4-5.0); Calcium 7.7 mg/dL (8.5-10.1); Magnesium 2.5 mg/dL (1.6-2.6); Potassium 3.8 mmol/L (3.5-5.1)
[2020-02-17 05:38] LABS: BUN/Creatinine Ratio 33.8
[2020-02-17 05:41] LABS: Bilirubin, Total 0.2 mg/dL (0.2-1.0); Total Protein 5.6 g/dL (6.4-8.2)
[2020-02-17] MEDS: InsuLIN REG 1unit/0.01ml Soln (100units/ml) SC SCH ×5 (06:00→18:00)
[2020-02-17] MEDS: ACCU-CHEK COMFORT CURVE STRIP VI SCH ×5 (06:00→23:54)
[2020-02-17] MEDS: MEROPENEM 1GM IVPB 100 ML IV SCH ×3 (06:00→21:24)
--- NOTE | 2020-02-17 06:00 | NUR ---
ACCUCHECK NORMAL. CAN DRAINED 10CC. COLOSTOMY 160CC BROWN/GREEN LIQUID.
[2020-02-17 07:00] LABS: Phosphorus 2.7 mg/dL (2.5-4.90)
--- NOTE | 2020-02-17 09:55 | NUR ---
FAMILY Received phone call from patients daughter Thisa, correct password provided and updated on patient condition.
[2020-02-17] MEDS: ALPRAZolam 0.5 MG TAB PO SCH ×2 (10:00→21:24)
[2020-02-17] MEDS: SODIUM CHLOR 0.9% PF (SALINE LOCK) 10ML VIAL/SYR IV SCH ×2 (10:30→21:23)
[2020-02-17] MEDS: PANTOPRAZOLE 40 MG/10 ML VIAL INJ IV SCH (10:30)
--- NOTE | 2020-02-17 10:30 | NUR ---
INCENTIVE SPIROMETRY Patient was able to demonstrate using the incentive spirometry and was able to reach 1500ml. Instructed patient to perform incentive every hour while awake.
[2020-02-17] MEDS: ENOXAPARIN SOD 40 MG/0.4 ML SYRINGE SC SCH (10:31)
--- NOTE | 2020-02-17 11:20 | NUR ---
REPORT Report given to Modesto KAPADIA in [facility] who will continue plan of care once patient arrives to room 284B.
--- NOTE | 2020-02-17 11:20 | NUR ---
RECEIVED REPORT FROM LATOYA KAPADIA
--- NOTE | 2020-02-17 11:23 | NUR ---
MD Dr. Mcghee at bedside updated on patient condition with new orders. MD to input into system. called Dr. Jordan regarding advancing patients diet Dr. Jordan states "okay for ice chips." Will continue to monitor patient closely.
--- NOTE | 2020-02-17 13:00 | NUR ---
P.T. will attempt P.T. after nursing finishes assessment.
--- NOTE | 2020-02-17 15:41 | NUR ---
Nutrition Followup Notes Wt 91.9 kg Pt was awake when rounded this morning. Pt is currently NPO with TPN @ 64 ml/hr providing 1410 kcals, 90g protein and 1050 NPCs. PN support meets 88-100% of est energy needs and 117-128% of est protein needs. Noted pt has been transferred to telemetry. Est energy needs ABW 70 [id number] kcal (20-23 kcal/kg ABW), Est protein needs: 70-77 g (1.0-1.1 g/kg ABW). Will Reassess prn Labs: GLU 124 H, Ca 7.7 L, Alb 1.7 L BM: Pt with 1 BM on 02/14 per RN note Skin: BS 19 low risk, full details in care clinician note PES: 1) Altered nutrition related lab values r.t current chronic medical condition aeb mild hypoalb 2) Decreased nutrient needs r/t adiposity aeb pt`s high BMI of 36.6 kgm2 Comments: Will continue to monitor PO status, PN tolerance, skin status, pertinent labs and weight trends. Will f/u in 2-3 days 1) Refer to [employer] dietitian on DC. 2) Advance PN support to meet > 75% of needs. (Resolved) 3) Gradually advance pt diet when medically feasible , as tolerated and per MD approval 3) Continue current plan of care
--- NOTE | 2020-02-17 16:25 | NUR ---
PT EVALUATED WITH PUREE, THIN, AND MECHANICAL SOFT DIET TEXTURES. NATURAL TEETH PRESENT. PT WAS RECEPTIVE TO EDUCATION ON PROPER POSITIONING FOR PO INTAKE WELL SMALL BITES AND SIPS AND REDUCED RATE. RECOMMENDED MECHANICAL SOFT THIN. NO OVERT SIGNS OR SYMPTOMS OF ASPIRATION PRESENT. NURSING NOTIFIED.
--- NOTE | 2020-02-17 16:44 | NUR ---
DR MACHADO PAGED REGARDING PATIENT'S DIET ORDER. AWAITING CALL BACK. CONTINUE CARE.
--- NOTE | 2020-02-17 17:01 | NUR ---
DR Ed BUSH PAGED REGARDING PATIENT'S DIET ORDER. AWAITING CALL BACK. CONTINUE CARE.
--- NOTE | 2020-02-17 17:05 | NUR ---
DR Ed BUSH CALLED BACK. ORDERS RECEIVED TO STOP CURRENT MECHANICAL DIET AND AWAIT DIET ORDERS FROM DR. MACHADO. CONTINUE CARE.
--- NOTE | 2020-02-17 18:10 | NUR ---
50ML OUTPUT FROM CAN DRAIN
--- NOTE | 2020-02-17 19:30 | NUR ---
ENDORSED CARE TO NOC SHIFT RN
[2020-02-17] MEDS ORDERED: TPN PER PHARMACY IV NR ×9 (20:00)
[2020-02-17] MEDS: HYDROcodone-ACET 5/325MG TAB PO PRN (22:44)
[2020-02-18] MEDS: HYDROmorphone HCL 2 MG/ML VL IV PRN ×8 (00:12→23:34)
--- NOTE | 2020-02-18 03:50 | NUR ---
Entered room after patient hit call light, patient reports several "loud gas sounds" and felt like she "had made a mess". Colostomy assessed, 250 mL of liquid brown stool noted to be in colostomy bag. Colostomy bag emptied and patient repositioned for comfort. Patient reporting 10/10 abdominal pain, will medicate as ordered (see emar) and continue care.
[2020-02-18] MEDS: ACCU-CHEK COMFORT CURVE STRIP VI SCH ×4 (06:00→23:34)
[2020-02-18] MEDS: InsuLIN REG 1unit/0.01ml Soln (100units/ml) SC SCH ×5 (06:00→23:47)
[2020-02-18] MEDS: MEROPENEM 1GM IVPB 100 ML IV SCH ×3 (06:52→23:35)
[2020-02-18 07:10] LABS: Basophils # (auto) 0 10 ^3/uL (0-0.2); Basophils % (auto) 0.3 % (0.0-2.0); Eosinophils # (auto) 0.2 10 ^3/uL (0-0.8); Eosinophils % (auto) 1.8 % (0.0-7.0); Hemoglobin 9.1 g/dL (12.2-16.2); Lymphocytes # (auto) 1.1 10 ^3/uL (0.4-5.4); Lymphocytes % (auto) 9.7 % (10.0-50.0); Mean Corpuscular Hemoglobin 29.7 pg (28.0-32.0); Mean Corpuscular Hgb Conc. 32.5 g/dL (32.0-36.0); Mean Corpuscular Volume 91.5 fL (80.0-100.0); Monocytes # (auto) 0.7 10 ^3/uL (0-1.3); Monocytes % (auto) 5.9 % (0.0-12.0); Neutrophils # (auto) 9.5 10 ^3/uL (1.6-8.6); Neutrophils % (auto) 82.3 % (37.0-80.0); Platelet Count (auto) 266 10^3/uL (140-450); Red Blood Cells 3.06 10^6/uL (4.0-5.20); Red Cell Distribution Width 14.2 % (11.8-14.3); White Blood Cell 11.5 10^3/uL (4.4-10.8)
--- NOTE | 2020-02-18 07:14 | NUR ---
Closing Note Patient lying in bed, eyes closed, respirations even and unlabored, appears asleep. Patient awakens to name and touch. No s/s of distress. Care endorsed to dayshift RN.
--- NOTE | 2020-02-18 07:15 | NUR ---
ASSUMED CARE OF PATIENT RESTING IN BED WITH EYES CLOSED. RESPIRATIONS EVEN AND UNLABORED. AUSCULTATED FOR NG PLACEMENT, HOWEVER WAS NOT ABLE TO AUSCULTATE ANY SOUND. STAT PORTABLE CHEST X RAY ORDERED TO CHECK PLACEMENT OF NG TUBE PER PROTOCOL. DR MACHADO AWARE OF ORDER. HOB ELEVATED AT LEAST 30 DEGREES, CALL LIGHT WITHIN REACH, SIDE RAILS UP X 3 AND BED LOCKED IN LOWEST POSITION.
[2020-02-18 07:20] LABS: Albumin 1.6 g/dL (3.4-5.0); BUN/Creatinine Ratio 35.2; Bilirubin, Total 0.1 mg/dL (0.2-1.0); Calcium 7.8 mg/dL (8.5-10.1); Magnesium 2.6 mg/dL (1.6-2.6); Phosphorus 2.2 mg/dL (2.5-4.90); Potassium 3.9 mmol/L (3.5-5.1); Total Protein 5.5 g/dL (6.4-8.2)
[2020-02-18 08:58] VITALS: BP 128/78
[2020-02-18] MEDS: PANTOPRAZOLE 40 MG/10 ML VIAL INJ IV SCH (09:57)
[2020-02-18] MEDS: SODIUM CHLOR 0.9% PF (SALINE LOCK) 10ML VIAL/SYR IV SCH ×2 (09:57→22:26)
[2020-02-18] MEDS: ENOXAPARIN SOD 40 MG/0.4 ML SYRINGE SC SCH (09:58)
[2020-02-18] MEDS: ALPRAZolam 0.5 MG TAB PO SCH ×2 (09:58→22:27)
--- NOTE | 2020-02-18 10:17 | NUR ---
CALLED TO PATIENT'S ROOM BY BELL SPINNER SOUSAPHONES. BELL SPINNER SOUSAPHONES EXPLAINED THAT THE PATIENT WAS RECEIVING PHYSICAL THERAPY THE NG TUBE "FELL OUT". NG TUBE INTACT AND CURRENTLY AT BEDSIDE. PATIENT IS CURRENTLY CRYING AND VERBALIZING THAT THIS IS THE "4TH TIME THAT THIS HAS HAPPENED." PATIENT IS CURRENTLY REFUSING NG TUBE PLACEMENT AT THIS TIME. CONTINUE CARE.
--- NOTE | 2020-02-18 10:52 | NUR ---
DR Ed BUSH PAGED REGARDING DISLODGMENT OF NG TUBE AND THAT THE PATIENT IS CURRENTLY PLACEMENT OF A NEW NG TUBE. AWAITING CALL BACK CONTINUE CARE.
--- NOTE | 2020-02-18 10:58 | NUR ---
DR Ed BUSH RETURNED CALL. INSTRUCTED TO CALL DR. MACHADO AND VERIFY IF HE WANTS TO ADVANCE THE PATIENT TO A CLEAR LIQUID DIET AT THIS TIME. CONTINUE CARE.
--- NOTE | 2020-02-18 11:27 | NUR ---
DR. MACHADO CALLED REGARDING DISLODGEMENT OF NG TUBE AND PATIENT'S REFUSAL OF NEW NG TUBE. INSTRUCTED TO LEAVE NG TUBE OUT, HOWEVER, THE PATIENT IS TO BE KEPT NPO UNTIL THERE IS GAS IN THE PATIENT'S COLOSTOMY BAG.
[2020-02-18] MEDS ORDERED: POTASSIUM PHOSP 22MEQ(15MMOLE) in NS 100 ML IV ONE (12:30)
[2020-02-18 12:49] VITALS: BP 140/69
[2020-02-18] MEDS: PROMETHAZINE HCL 25 MG/ML 1ML IV PRN ×3 (13:06→20:17)
[2020-02-18 16:35] VITALS: BP 164/80
--- NOTE | 2020-02-18 17:33 | NUR ---
40ML OUTPUT FROM CAN DRAIN
[2020-02-18] MEDS: LORazepam 2MG/ML-1ML VIAL IV PRN (18:27)
--- NOTE | 2020-02-18 19:18 | NUR ---
ENDORSED CARE TO NOC SHIFT RN
[2020-02-18] MEDS ORDERED: TPN PER PHARMACY IV NR ×11 (20:00)
[2020-02-18 22:00] VITALS: BP 130/77
[2020-02-19] MEDS: HYDROmorphone HCL 2 MG/ML VL IV PRN ×8 (02:06→23:18)
[2020-02-19] MEDS: HYDROcodone-ACET 5/325MG TAB PO PRN (03:20)
[2020-02-19 05:00] VITALS: BP 122/76
[2020-02-19] MEDS: PROMETHAZINE HCL 25 MG/ML 1ML IV PRN ×3 (05:23→20:18)
[2020-02-19] MEDS: InsuLIN REG 1unit/0.01ml Soln (100units/ml) SC SCH ×4 (07:00→23:10)
[2020-02-19] MEDS: ACCU-CHEK COMFORT CURVE STRIP VI SCH ×4 (07:00→23:10)
--- NOTE | 2020-02-19 07:11 | NUR ---
"Lo" reading of < 10 during blood sugar check incorrect, please disregard. Patient reassessed twice 60 and then 65 respectively. Will make dayshift RN aware.
--- NOTE | 2020-02-19 07:30 | NUR ---
Patient lying in bed, awake and alert. No s/s of distress. Call light within reach. Will endorse care to dayshift RN.
--- NOTE | 2020-02-19 07:38 | NUR ---
ASSUMED CARE OF PATIENT AWAKE AND ALERT. RESPIRATIONS EVEN AND UNLABORED. UPDATED PATIENT ON PLAN OF CARE AND INSTRUCTED TO CALL FOR ASSIST IF NEEDED. BED LOCKED IN LOWEST POSITION, CALL LIGHT WITHIN REACH, HOB ELEVATED AT LEAST 30 DEGREES AND SIDE RAILS UP X 3.
[2020-02-19] MEDS: MEROPENEM 1GM IVPB 100 ML IV SCH ×3 (08:15→23:10)
[2020-02-19 08:22] LABS: Basophils # (auto) 0.1 10 ^3/uL (0-0.2); Basophils % (auto) 0.6 % (0.0-2.0); Eosinophils # (auto) 0.2 10 ^3/uL (0-0.8); Eosinophils % (auto) 1.9 % (0.0-7.0); Hematocrit 29.1 % (36.0-46.0); Hemoglobin 9.4 g/dL (12.2-16.2); Lymphocytes # (auto) 1.6 10 ^3/uL (0.4-5.4); Lymphocytes % (auto) 12.4 % (10.0-50.0); Mean Corpuscular Hemoglobin 29.3 pg (28.0-32.0); Mean Corpuscular Hgb Conc. 32.3 g/dL (32.0-36.0); Mean Corpuscular Volume 90.7 fL (80.0-100.0); Monocytes % (auto) 7.7 % (0.0-12.0); Neutrophils # (auto) 10.3 10 ^3/uL (1.6-8.6); Neutrophils % (auto) 77.4 % (37.0-80.0); Platelet Count (auto) 264 10^3/uL (140-450); Red Blood Cells 3.21 10^6/uL (4.0-5.20); Red Cell Distribution Width 13.9 % (11.8-14.3); White Blood Cell 13.3 10^3/uL (4.4-10.8)
[2020-02-19 08:54] LABS: Albumin 1.7 g/dL (3.4-5.0); BUN/Creatinine Ratio 35.3; Calcium 7.9 mg/dL (8.5-10.1); Magnesium 2.4 mg/dL (1.6-2.6); Phosphorus 3.5 mg/dL (2.5-4.90); Potassium 4.1 mmol/L (3.5-5.1)
[2020-02-19 08:57] LABS: Bilirubin, Total 0.2 mg/dL (0.2-1.0); Total Protein 5.6 g/dL (6.4-8.2)
[2020-02-19 09:00] VITALS: BP 139/70
[2020-02-19] MEDS: PANTOPRAZOLE 40 MG/10 ML VIAL INJ IV SCH (10:18)
[2020-02-19] MEDS: SODIUM CHLOR 0.9% PF (SALINE LOCK) 10ML VIAL/SYR IV SCH ×2 (10:18→21:56)
[2020-02-19] MEDS: ALPRAZolam 0.5 MG TAB PO SCH ×2 (10:19→21:56)
[2020-02-19] MEDS: ENOXAPARIN SOD 40 MG/0.4 ML SYRINGE SC SCH (10:19)
--- NOTE | 2020-02-19 11:12 | NUR ---
Nutrition Followup Notes Wt 91.9 kg Pt was awake when rounded this morning, denies any diarrhea or const, reports some nausea. Pt is s/p partial colon resection and colostomy per MD note. Pt is currently NPO with TPN @ 66 ml/hr providing 1350 kcals, 100g protein and 950 NPCs. PN support meets 84-96% of est energy needs and 130-143% of est protein needs. Est energy needs ABW 70 [id number] kcal (20-23 kcal/kg ABW), Est protein needs: 70-77 g (1.0-1.1 g/kg ABW). Will Reassess prn Labs: Creat 0.51L, Ca 7.9L, Alb 1.7L BM: Pt with 1 BM on 02/14 per RN note Skin: BS 19 low risk, full details in senior resident care director note PES: 1) Altered nutrition related lab values r.t current chronic medical condition aeb mild hypoalb 2) Decreased nutrient needs r/t adiposity aeb pt`s high BMI of 36.6 kgm2 Comments: Will continue to monitor PO status, PN tolerance, skin status, pertinent labs and weight trends. Will f/u in 2-3 days 1) Refer to [employer] dietitian on DC. 2) Advance PN support to meet > 75% of needs. (Resolved) 3) Gradually advance pt diet when medically feasible , as tolerated and per MD approval 3) Continue current plan of care
--- NOTE | 2020-02-19 12:34 | NUR ---
80ML OUTPUT FROM CAN DRAIN
[2020-02-19 13:00] VITALS: BP 150/71
--- NOTE | 2020-02-19 16:28 | NUR ---
DR Andrés LOPEZ CALLED REGARDING CURRENT DIET ORDER. INSTRUCTED TO CALL DR MACHADO TO ASK IF IT IS ALRIGHT TO START THIS PATIENT ON A CLEAR LIQUID DIET.
[2020-02-19 16:36] VITALS: BP 125/69
--- NOTE | 2020-02-19 16:38 | NUR ---
DR MACHADO PAGED REGARDING DIET ORDERS. AWAITING CALL BACK. CONTINUE CARE.
--- NOTE | 2020-02-19 18:42 | NUR ---
50ML OUTPUT FROM CAN DRAIN
--- NOTE | 2020-02-19 19:05 | NUR ---
OPENING NOTE- NOC SHIFT RECEIVED REPORT FROM DAY SHIFT NURSE. PATIENT IS ALERT AND ORIENTED X4. PATIENT IS IN BED, BED IS LOCKED AT LOWEST POSITION, BED RAILS UP X2 AND HEAD OF BED IS UP >30 DEGREES. PATIENT STATES THAT SHE IS UNCOMFORTABLE AND COMPLAINS OF PAIN 10/10 AND FEELS LIKE SHE HAS "GAS BUILDING UP" IN HER ABDOMEN. BOWEL SOUNDS ARE HYPOACTIVE IN ALL FOUR QUADRANTS. DISCUSSED POC WITH PATIENT AND INSTRUCTED PATIENT TO CALL PRN; PATIENT VERBALIZED UNDERSTANDING. BEDSIDE TABLE WITHIN REACH, CALL LIGHT WITHIN REACH. WILL CONTINUE TO MONITOR Q1H AND PRN.
--- NOTE | 2020-02-19 19:28 | NUR ---
ENDORSED CARE TO NOC SHIFT RN
[2020-02-19] MEDS ORDERED: TPN PER PHARMACY IV NR ×9 (20:00)
--- NOTE | 2020-02-19 20:00 | NUR ---
PATIENT IS NOT COMPLIANT WITH USE OF INCENTIVE SPIROMETER. ENCOURAGED PATIENT TO USE INCENTIVE SPIROMETER. EDUCATED PATIENT WITH IMPORTANCE AND HEALTH BENEFITS OF USE FOR HER CONDITION. WILL CONTINUE TO ENCOURAGE USE THROUGHOUT SHIFT.
--- NOTE | 2020-02-19 20:05 | NUR ---
COLOSTOMY BAG EMPTIED 200 MLS OF LIQUID STOOL.
[2020-02-20] MEDS: PROMETHAZINE HCL 25 MG/ML 1ML IV PRN ×3 (02:14→21:24)
[2020-02-20] MEDS: HYDROmorphone HCL 2 MG/ML VL IV PRN ×7 (02:14→21:24)
[2020-02-20] MEDS: InsuLIN REG 1unit/0.01ml Soln (100units/ml) SC SCH ×3 (05:28→17:58)
[2020-02-20] MEDS: ACCU-CHEK COMFORT CURVE STRIP VI SCH ×3 (05:29→17:57)
--- NOTE | 2020-02-20 05:45 | NUR ---
CAN DRAIN EMPTIED 50 MLS SEROSANGUINEOUS FLUID; NO CLOTS.
--- NOTE | 2020-02-20 07:20 | NUR ---
CLOSING NOTE- NOC SHIFT ENDORSED PATIENT CARE TO DAY SHIFT NURSE. PATIENT IS ALERT AND ORIENTED X4. PATIENT IS RESTING IN BED AT THIS TIME.
[2020-02-20 07:25] LABS: Hematocrit 27.9 % (36.0-46.0); Hemoglobin 9.2 g/dL (12.2-16.2); Mean Corpuscular Hemoglobin 29.8 pg (28.0-32.0); Mean Corpuscular Hgb Conc. 33.1 g/dL (32.0-36.0); Mean Corpuscular Volume 89.9 fL (80.0-100.0); Platelet Count (auto) 305 10^3/uL (140-450); White Blood Cell 7.9 10^3/uL (4.4-10.8)
[2020-02-20 07:51] LABS: Band Neutrophils % (manual) 0; Basophils % (manual) 0 (0.0-2.0); Blast Cells 0; Metamyelocytes % 0; Promyelocytes % 0; Reactive Lymphocytes 0
[2020-02-20 07:58] LABS: Potassium 4.2 mmol/L (3.5-5.1)
[2020-02-20 08:06] LABS: Albumin 1.6 g/dL (3.4-5.0); BUN/Creatinine Ratio 28.6; Bilirubin, Total 0.4 mg/dL (0.2-1.0); Magnesium 2.4 mg/dL (1.6-2.6); Total Protein 5.6 g/dL (6.4-8.2)
[2020-02-20 09:00] VITALS: BP 128/70
[2020-02-20] MEDS: PANTOPRAZOLE 40 MG/10 ML VIAL INJ IV SCH (09:00)
[2020-02-20] MEDS: ALPRAZolam 0.5 MG TAB PO SCH ×2 (09:00→22:57)
[2020-02-20] MEDS: ENOXAPARIN SOD 40 MG/0.4 ML SYRINGE SC SCH (09:00)
[2020-02-20] MEDS: MEROPENEM 1GM IVPB 100 ML IV SCH ×2 (09:00→16:00)
[2020-02-20] MEDS: SODIUM CHLOR 0.9% PF (SALINE LOCK) 10ML VIAL/SYR IV SCH ×2 (09:00→21:24)
[2020-02-20 09:06] LABS: Eosinophils % (manual) 3 (0-7); Lymphocytes % (manual) 17 (10.0-50.0); Monocytes % (manual) 10 (0-12); Myelocytes % 1
[2020-02-20 13:00] VITALS: BP 126/85
--- NOTE | 2020-02-20 13:56 | NUR ---
Dr. Jordan at bed side. No new orders received.
--- NOTE | 2020-02-20 15:15 | NUR ---
Pt refused Physical Therapy this afternoon. . Signed: 02/20/20 at 1516 by MILLA CARBALLO PTT <Co-Signature Required> Co-Signed: 02/20/20 at 1515 by Juanito Abreu PT Addendum: 02/20/20 at 6 by MILLA CARBALLO PTT Amended: Links added.
--- NOTE | 2020-02-20 15:57 | NUR ---
Dr. Sung at bed side. New orders received. Refer to order hx.
--- NOTE | 2020-02-20 16:45 | NUR ---
Patient ambulating with PT/ walker
--- NOTE | 2020-02-20 18:49 | NUR ---
COLOSTOMY BAG OUTPUT EMPTIED 320 MLS OF LIQUID STOOL. NO GAS NOTED IN BAG.
--- NOTE | 2020-02-20 18:49 | NUR ---
CAN DRAIN OUTPUT/SHIFT EMPTIED 50 MLS SEROSANGUINEOUS FLUID; NO CLOTS.
--- NOTE | 2020-02-20 19:25 | NUR ---
EDUCATED PATIENT REGARDING IMPORTANCE OF AMBULATION. PATIENT STATED THAT SHE WOULD TRY LATER ON TONIGHT. PATIENT DID NOT AMBULATE AT THIS TIME.
[2020-02-20] MEDS ORDERED: POTASSIUM PHOSPHATE IV NR ×7 (20:00)
[2020-02-20] MEDS ORDERED: [UNRECOGNIZED DRUG - OTHER] IV NR ×7 (20:00)
[2020-02-20] MEDS ORDERED: SODIUM ACETATE IV NR ×7 (20:00)
[2020-02-20] MEDS ORDERED: POTASSIUM ACETATE IV NR ×7 (20:00)
[2020-02-20 22:00] VITALS: BP 134/84
--- NOTE | 2020-02-20 22:50 | NUR ---
PICC LINE DRESSING CHANGE USING STERILE TECHNIQUE. PATIENT TOLERATED WELL.
--- NOTE | 2020-02-20 23:00 | NUR ---
INCENTIVE SPIROMETER EDUCATION. PATIENT USING INCENTIVE SPIROMETER WELL AND HOLDS AT 1500. PATIENT DID NOT AMBULATE AT THIS TIME.
--- NOTE | 2020-02-20 23:00 | NUR ---
CAN DRAIN EMPTIED 25 ML SEROSANGUINEOUS FLUID
--- NOTE | 2020-02-21 00:50 | NUR ---
ENCOURAGED PATIENT TO AMBULATE PATIENT DANGLED FEET AT EDGE OF BED AND STOOD UP WITH USE OF WALKER.
[2020-02-21] MEDS: MEROPENEM 1GM IVPB 100 ML IV SCH ×3 (00:55→16:37)
[2020-02-21] MEDS: ACCU-CHEK COMFORT CURVE STRIP VI SCH ×4 (00:55→17:29)
[2020-02-21] MEDS: InsuLIN REG 1unit/0.01ml Soln (100units/ml) SC SCH ×4 (00:55→17:35)
[2020-02-21] MEDS: HYDROmorphone HCL 2 MG/ML VL IV PRN ×8 (00:56→23:23)
--- NOTE | 2020-02-21 01:20 | NUR ---
REPOSITIONED PATIENT BACK INTO BED. PATIENT STATES THAT SHE DID NOT REFUSE PT DURING DAY SHIFT THAT SHE JUST WANTED HIM TO WAIT BECAUSE SHE WAS GOING TO GET CLEANED UP.
[2020-02-21] MEDS: PROMETHAZINE HCL 25 MG/ML 1ML IV PRN ×3 (04:19→20:12)
[2020-02-21 05:12] VITALS: BP 115/75
--- NOTE | 2020-02-21 06:00 | NUR ---
COMPLETE BED LINEN AND GOWN CHANGE.
--- NOTE | 2020-02-21 06:15 | NUR ---
CAN DRAIN EMPTIED 50 MLS SEROSANGUINEOUS FLUID
--- NOTE | 2020-02-21 06:20 | NUR ---
COLOSTOMY BAG WAS NOT CHANGED DURING LUMP ROLLER, BAG HAS APPROX 30 MLS OF LIQUID STOOL.
--- NOTE | 2020-02-21 06:30 | NUR ---
SPIROMETER USE AND PATIENT SITTING AT EDGE OF BED DANGLING FEET.
--- NOTE | 2020-02-21 07:25 | NUR ---
CLOSING NOTE- NOC SHIFT ENDORSED PATIENT CARE TO DAY SHIFT NURSE SUNNY KAPADIA. PATIENT IS IN BED RESTING EYES CLOSED. CHEST RISE AND FALL IS EVEN, BREATHS UNLABORED.
--- NOTE | 2020-02-21 07:30 | NUR ---
Opening Shift Note Assumed care of patient awake,alert,crying,restless,anxious and c/o pain scale 9/10. No S/S of distress/SOB,Instructed on POC and to call for assist PRN, will continue to monitor for changes Q1hr and PRN.instructed importance of turning q 2 hours,getting oob,up in chair,using IS q 1 hour x 10 and ambulating,Bed locked and in the lowest position,call light within reach ,patient verbalized understanding.
--- NOTE | 2020-02-21 07:38 | NUR ---
OPENING NOTE- NOC SHIFT RECEIVED REPORT FROM DAY SHIFT NURSE. PATIENT IS ALERT AND ORIENTED X4 AND MAKES EYE CONTACT. PATIENT IS IN BED, BED IS LOCKED AT LOWEST POSITION, BED RAILS UP X2 AND HEAD OF BED IS UP >30 DEGREES. BEDSIDE TABLE WITHIN REACH, CALL LIGHT WITHIN REACH. DISCUSSED POC WITH PATIENT AND INSTRUCTED PATIENT TO CALL PRN; PATIENT VERBALIZED UNDERSTANDING. WILL CONTINUE TO MONITOR Q1H AND PRN. Addendum: 02/21/20 at 0741 by Ludivina Ruby RN CORRECT TIME FOR THIS NOTE IS 02/20/2020 1906
--- NOTE | 2020-02-21 07:45 | NUR ---
Assessment done,sanguineous drainage mid lower incisional dressing noted,will change dressing.
--- NOTE | 2020-02-21 08:00 | NUR ---
Patient dangled in bed assisted by ANIMAL FEEDER,then requested to be back in bed
[2020-02-21] MEDS ORDERED: IOHEXOL 300 MG/ML 100ML BOTTLE IJ ONE (08:02)
[2020-02-21] MEDS ORDERED: OMNIPAQUE ORAL SOLN 500ml 12mg/ml PO ONE (08:04)
[2020-02-21 08:07] LABS: Albumin 1.7 g/dL (3.4-5.0); Calcium 8.1 mg/dL (8.5-10.1); Magnesium 2.3 mg/dL (1.6-2.6); Potassium 4.1 mmol/L (3.5-5.1); Total Protein 6.3 g/dL (6.4-8.2)
[2020-02-21 08:10] LABS: Bilirubin, Total 0.3 mg/dL (0.2-1.0)
[2020-02-21 09:00] VITALS: BP 119/77
[2020-02-21] MEDS: ENOXAPARIN SOD 40 MG/0.4 ML SYRINGE SC SCH (09:26)
[2020-02-21] MEDS: PANTOPRAZOLE 40 MG/10 ML VIAL INJ IV SCH (09:26)
[2020-02-21] MEDS: SODIUM CHLOR 0.9% PF (SALINE LOCK) 10ML VIAL/SYR IV SCH ×2 (09:27→22:03)
[2020-02-21] MEDS: ALPRAZolam 0.5 MG TAB PO SCH ×2 (09:27→22:04)
--- NOTE | 2020-02-21 09:30 | NUR ---
Dressing to mid lower incisional changed,genesis intact,CAN dressing changed
--- NOTE | 2020-02-21 12:54 | NUR ---
Nutrition Followup Notes Wt 91.9 kg, pt wt is 199.7kg is likely an error, pt was 91.9kg last followup note Pt was awake and oriented at time of rounds, pt with signs of distress, still has some nausea. Pt is s/p partial colon resection and colostomy per MD note. Pt is currently NPO with TPN @ 55 ml/hr providing 1170 kcals, 80g protein and 850 NPCs. PN support meets 73-84% of est energy needs and great than 100% of est protein needs. Est energy needs ABW 70 [id number] kcal (20-23 kcal/kg ABW), Est protein needs: 70-77 g (1.0-1.1 g/kg ABW). Will Reassess prn Labs: Creat 0.53L, Alb 1.7L, GLUC 117H, Ca 8.1L BM: Pt with 1 BM on 02/14 per RN note, 285 ml of gastric drainage 02/16 Skin: BS 19 low risk, full details in out of school hours care worker note PES: 1) Altered nutrition related lab values r.t current chronic medical condition aeb mild hypoalb 2) Decreased nutrient needs r/t adiposity aeb pt`s high BMI of 36.6 kgm2 Comments: Will continue to monitor PO status, PN tolerance, skin status, pertinent labs and weight trends. Will f/u in 2-3 days 1) Refer to [employer] dietitian on DC. 2) Advance PN support to meet > 75% of needs. 3) Gradually advance pt diet when medically feasible , as tolerated and per MD approval 3) Continue current plan of care
[2020-02-21 13:00] VITALS: BP 109/76
--- NOTE | 2020-02-21 13:15 | NUR ---
PHYSICAL THERAPY P.T. AT BEDSIDE,ASSISTED PATIENT,OOB TO BEDSIDE CHAIR THEN AMBULATED INSIDE ROOM APPROXIMATELY 60 FEET
[2020-02-21 16:24] VITALS: BP 107/80
--- NOTE | 2020-02-21 19:05 | NUR ---
OPENING NOTE- NOC SHIFT ASSUMED PATIENT CARE. PATIENT IS IN BED, BED IS LOCKED AT LOWEST POSITION. BED RAILS UP X2 AND HEAD OF BED IS UP >45 DEGREES. BEDSIDE TABLE WITHIN REACH, CALL LIGHT WITHIN REACH. PATIENT IS RECEIVING TPN AT 55 MLS PER HR VIA PICC LINE. DISCUSSED POC WITH PATIENT AND INSTRUCTED PATIENT TO CALL PRN; PATIENT VERBALIZED UNDERSTANDING. WILL CONTINUE TO MONITOR Q1H AND PRN.
[2020-02-21] MEDS ORDERED: POTASSIUM PHOSPHATE IV NR ×8 (20:00)
[2020-02-21] MEDS ORDERED: SODIUM ACETATE IV NR ×8 (20:00)
[2020-02-21] MEDS ORDERED: POTASSIUM ACETATE IV NR ×8 (20:00)
[2020-02-21] MEDS ORDERED: [UNRECOGNIZED DRUG - OTHER] IV NR ×8 (20:00)
--- NOTE | 2020-02-21 20:55 | NUR ---
FAMILY CALL DAUGHTER PORSCHE CALLED FOR PATIENT STATUS UPDATE. THISA WAS UPDATED; ALL QUESTIONS AND CONCERNS ADDRESSED.
--- NOTE | 2020-02-21 21:20 | NUR ---
MARIA R TYLER TO CLARIFY DC OF ANTIBIOTIC. RECEIVED CALL BACK FROM DR. CALVILLO AND RECEIVED ORDER TO DC [place] AT THIS TIME.
[2020-02-21 22:00] VITALS: BP 119/81
[2020-02-22] MEDS: ACCU-CHEK COMFORT CURVE STRIP VI SCH ×4 (00:21→18:16)
--- NOTE | 2020-02-22 01:20 | NUR ---
PATIENT OOB, AMBULATED APPROX 20 FEET. PATIENT SITTING AT EDGE OF BED, DANGLING FEET. ASSISTED PATIENT REPOSITIONING BACK INTO BED.
[2020-02-22] MEDS: HYDROmorphone HCL 2 MG/ML VL IV PRN ×7 (03:04→21:18)
[2020-02-22] MEDS: PROMETHAZINE HCL 25 MG/ML 1ML IV PRN ×2 (03:05→15:23)
[2020-02-22 05:00] VITALS: BP 122/80
[2020-02-22] MEDS: InsuLIN REG 1unit/0.01ml Soln (100units/ml) SC SCH ×4 (05:55→18:00)
--- NOTE | 2020-02-22 06:00 | NUR ---
CAN DRAINED 25 MLS SEROSANGUINEOUS FLUID.
--- NOTE | 2020-02-22 06:10 | NUR ---
COLOSTOMY BAG CONTAINS APPROX 50 MLS OF FLUID STOOL.
[2020-02-22 07:25] LABS: Albumin 1.8 g/dL (3.4-5.0); Magnesium 2.4 mg/dL (1.6-2.6); Potassium 4.1 mmol/L (3.5-5.1)
[2020-02-22 07:30] LABS: BUN/Creatinine Ratio 29.8; Bilirubin, Total 0.3 mg/dL (0.2-1.0); Phosphorus 3.3 mg/dL (2.5-4.90)
[2020-02-22 08:46] VITALS: BP 129/67
[2020-02-22] MEDS: SODIUM CHLOR 0.9% PF (SALINE LOCK) 10ML VIAL/SYR IV SCH ×2 (09:08→21:12)
[2020-02-22] MEDS: PANTOPRAZOLE 40 MG/10 ML VIAL INJ IV SCH (09:08)
[2020-02-22] MEDS: ALPRAZolam 0.5 MG TAB PO SCH ×2 (09:08→22:00)
[2020-02-22] MEDS: ENOXAPARIN SOD 40 MG/0.4 ML SYRINGE SC SCH (09:09)
--- NOTE | 2020-02-22 10:25 | NUR ---
PT AT BEDSIDE
[2020-02-22 11:29] LABS: Albumin 1.9 g/dL (3.4-5.0); Bilirubin, Total 0.3 mg/dL (0.2-1.0); Calcium 8.2 mg/dL (8.5-10.1); Hematocrit 28.9 % (36.0-46.0); Hemoglobin 9.6 g/dL (12.2-16.2); Mean Corpuscular Hemoglobin 29.7 pg (28.0-32.0); Mean Corpuscular Hgb Conc. 33.3 g/dL (32.0-36.0); Mean Corpuscular Volume 89.4 fL (80.0-100.0); Platelet Count (auto) 378 10^3/uL (140-450); Red Blood Cells 3.23 10^6/uL (4.0-5.20); Total Protein 6.3 g/dL (6.4-8.2); White Blood Cell 12.8 10^3/uL (4.4-10.8)
[2020-02-22 11:52] LABS: Basophils % (manual) 0 (0.0-2.0); Blast Cells 0; Myelocytes % 0; Promyelocytes % 0; Reactive Lymphocytes 0
[2020-02-22 12:19] LABS: Band Neutrophils % (manual) 5; Eosinophils % (manual) 8 (0-7); Lymphocytes % (manual) 4 (10.0-50.0); Metamyelocytes % 1; Monocytes % (manual) 5 (0-12)
--- NOTE | 2020-02-22 12:19 | NUR ---
CAN DRAINED 50 MLS SEROSANGUINEOUS FLUID
--- NOTE | 2020-02-22 12:20 | NUR ---
COLOSTOMY BAG REMAINS AT 50 MLS FLUID STOOL.
[2020-02-22 13:00] VITALS: BP 125/75
--- NOTE | 2020-02-22 13:41 | NUR ---
CLOSING NOTE- NOC SHIFT ENDORSED PATIENT CARE TO DAY SHIFT NURSE JACINDA KAPADIA PATIENT IS COMFORTABLE IN BED. NO S/SX OF DISTRESS, SOB OR PAIN.
--- NOTE | 2020-02-22 15:43 | NUR ---
Dr. Jordan Telephone order received from Dr. Jordan for patient to have sips not more than 30 cc/hr. He also approved for patient to have Reglan as ordered by Dr. Keisha Castaneda.
[2020-02-22 16:40] VITALS: BP 135/75
--- NOTE | 2020-02-22 18:30 | NUR ---
CAN Drain 15 mls emptied.
[2020-02-22] MEDS: METOCLOPRAMIDE HCL 5MG/ml INJ 2ml VIAL IV SCH (18:32)
[2020-02-22] MEDS ORDERED: TPN PER PHARMACY IV NR ×8 (20:00)
[2020-02-22] MEDS: LORazepam 2MG/ML-1ML VIAL IV PRN (21:13)
--- NOTE | 2020-02-22 21:13 | NUR ---
PT APPEARS TO BE VERY ANXIOUS. SHE IS CRYING AND YELLING AT STAFF. ATIVAN 1MG IVP GIVEN NOW.
[2020-02-22 22:00] VITALS: BP 110/73
[2020-02-23] MEDS: METOCLOPRAMIDE HCL 5MG/ml INJ 2ml VIAL IV SCH ×5 (00:42→23:54)
[2020-02-23] MEDS: ACCU-CHEK COMFORT CURVE STRIP VI SCH ×5 (00:44→23:55)
[2020-02-23] MEDS: HYDROmorphone HCL 2 MG/ML VL IV PRN ×7 (00:45→22:55)
[2020-02-23] MEDS: PROMETHAZINE HCL 25 MG/ML 1ML IV PRN ×3 (04:00→22:55)
[2020-02-23 05:00] VITALS: BP 116/40
[2020-02-23] MEDS: InsuLIN REG 1unit/0.01ml Soln (100units/ml) SC SCH ×5 (06:00→23:55)
[2020-02-23 06:16] LABS: Potassium 4.1 mmol/L (3.5-5.1)
[2020-02-23 06:26] LABS: Albumin 1.9 g/dL (3.4-5.0); BUN/Creatinine Ratio 27.9; Bilirubin, Total 0.3 mg/dL (0.2-1.0); Magnesium 2.5 mg/dL (1.6-2.6); Phosphorus 3.8 mg/dL (2.5-4.90); Total Protein 6.2 g/dL (6.4-8.2)
--- NOTE | 2020-02-23 07:48 | NUR ---
Opening Shift Note Assumed care of patient, awake and alert. No S/S of distress/SOB or pain. Instructed on POC and to call for assist PRN, will continue to monitor for changes Q1hr and PRN.
[2020-02-23] MEDS: LORazepam 2MG/ML-1ML VIAL IV PRN (08:48)
[2020-02-23] MEDS: SODIUM CHLOR 0.9% PF (SALINE LOCK) 10ML VIAL/SYR IV SCH ×2 (08:48→22:34)
--- NOTE | 2020-02-23 10:22 | NUR ---
PATIENT EDUCATION PATIENT EDUCATED ON IMPORTANCE OF AMBULATION. PATIENT VERBALIZED UNDERSTANDING. PATIENT STATES "I KNOW I NEED TO BUT I AM IN SO UH PAIN IT IS SO HARD FOR ME"
[2020-02-23] MEDS: PANTOPRAZOLE 40 MG/10 ML VIAL INJ IV SCH (10:24)
[2020-02-23] MEDS: ALPRAZolam 0.5 MG TAB PO SCH ×2 (10:24→22:35)
--- NOTE | 2020-02-23 10:30 | NUR ---
WOUND CARE NOTE: WOUND CARE TEAM WAS MONITORING PATIENT FOR SKIN INTEGRITY D/T INTUBATION STATUS. SHE IS S/P EXPLORATORY LAPAROTOMY WITH COLECTOMY, RESULTING IN COLOSTOMY, WITH DR. MACHADO. PATIENT IS NOW EXTUBATED, ON TELE FLOOR. CURRENT EDILMA SCORE IS 19. SHE IS ABLE TO SELF TURN/REPOSITION SELF. OTHER THAN ABDOMINAL SURGICAL INCISIONS/COLOSTOMY, PATIENT IS WOUND FREE. UPDATED SKIN/WOUND CARE PLAN. NO FURTHER WOUND CARE MONITORING NEEDED AT THIS TIME.
--- NOTE | 2020-02-23 12:09 | NUR ---
ROUNDING UPON ENTRY PATIENT IS STANDING UP NEXT TO THE BED HOLDING ONTO HER STOMACH STATING "I AM BLEEDNG AND I DO NOT KNOW WHERE" UPON ASSESSMENT PATIENT DRESSING TO THE CAN DRAIN IS LEAKING SEROUS SANGUINOUS FLUID THROUGH THE DRESSING. PATIENT ESCORTED BACK TO BED AND CAN DRESSING CHANGED. PATIENT TOLERATED DRESSING CHANGE WELL
--- NOTE | 2020-02-23 12:12 | NUR ---
ROUNDING MD Dionne SANDERS AT BEDSIDE. ALL QUESTIONS AND CONCERNS ADDRESSED AT THIS TIME. PER MD "PATIENT WILL BE TRANSFERRED TO SNF SOON SHE IS ABLE TO TOLERATE SOFT DIET. WHILE PATIENT IS EATING SHE NEEDS TO BE PUT INTO A CHAIR FOR EXERCISE AND AMBULATE EVERY FOUR HOURS"
--- NOTE | 2020-02-23 12:15 | NUR ---
PATIENT REFUSING LUNCH AT THIS TIME PATIENT STATES "I AM REALLY NOT HUNGRY RIGHT NOW, I DONT THINK I CAN EAT ANYTHING"
[2020-02-23 13:00] VITALS: BP 113/79
--- NOTE | 2020-02-23 14:00 | NUR ---
PATIENT REFUSING TO AMBULATE AT THIS TIME. PATIENT EDUCATED ON BENEFITS OF AMBULATION. PATIENT VERBALIZED UNDERSTANDING.
--- NOTE | 2020-02-23 14:54 | NUR ---
Nutrition Followup Notes Wt 90.9 kg Pt was sleeping at time of rounds. Pt is s/p partial colon resection and colostomy per MD note. Pt is currently NPO with TPN @ 60 ml/hr providing 1340 kcals, 80g protein and 1020 NPCs. PN support meets 83-96% of est energy needs and great than 104-114% of est protein needs. Est energy needs ABW 70 [id number] kcal (20-23 kcal/kg ABW), Est protein needs: 70-77 g (1.0-1.1 g/kg ABW). Will Reassess prn Labs: Alb 1.9L, GLUC 127H, Ca 8.0L, AST 67H, ALT 139H, ALK PHOS 124H BM: Pt with 1 BM on 02/20 per RN note Skin: BS 19 low risk, full details in foster care therapist note PES: 1) Altered nutrition related lab values r.t current chronic medical condition aeb mild hypoalb 2) Decreased nutrient needs r/t adiposity aeb pt`s high BMI of 36.6 kgm2 Comments: Will continue to monitor PO status, PN tolerance, skin status, pertinent labs and weight trends. Will f/u in 2-3 days 1) Refer to [employer] dietitian on DC. 2) Advance PN support to meet > 75% of needs. 3) Gradually advance pt diet when medically feasible , as tolerated and per MD approval 3) Continue current plan of care
[2020-02-23 16:42] VITALS: BP 134/65
--- NOTE | 2020-02-23 16:46 | NUR ---
PATIENT TEMPERATURE 99.8. COOLING MEASURE INITIATED.
--- NOTE | 2020-02-23 17:45 | NUR ---
TEMP REASSESSMENT 99.1
--- NOTE | 2020-02-23 18:00 | NUR ---
PATIENT REFUSING TO AMBULATE AT THIS TIME. PATIENT EDUCATED ON BENEFITS OF AMBULATION. PATIENT VERBALIZED UNDERSTANDING.
--- NOTE | 2020-02-23 18:16 | NUR ---
CAN Drain 25 mls emptied.
--- NOTE | 2020-02-23 19:30 | NUR ---
Opening Shift Note Assumed care of patient, awake and alert x4. No S/S of distress/SOB or pain. Dressing to josy drain is C/D/I, medial incision to abdomen is well approximated, genesis intact, staple line is reddened. Call light is within reach, fall precautions are in place. Instructed on POC and to call for assist PRN, will continue to monitor for changes Q1hr and PRN.
[2020-02-23] MEDS ORDERED: TPN PER PHARMACY IV NR ×9 (20:00)
[2020-02-23 22:00] VITALS: BP 139/73
[2020-02-24] MEDS: HYDROmorphone HCL 2 MG/ML VL IV PRN ×3 (02:26→21:46)
[2020-02-24] MEDS: PROMETHAZINE HCL 25 MG/ML 1ML IV PRN ×2 (02:26→21:46)
--- NOTE | 2020-02-24 03:53 | NUR ---
Ambulation Patient ambulated with minimum assistance from the bed to doorway entrance to the room and back to bed. Assisted into bed and patient repositioned for comfort with call light within reach. Patient stated she is in pain but getting up and walking felt good.
--- NOTE | 2020-02-24 03:56 | NUR ---
Toney care completed, yeast noted to vaginal area. Minimal serosanguineous drainage noted to patient's gown to the medial lower abdomen. Cleansed abdominal incision with wound cleanser, patted dry with sterile gauze, no new drainage noted. New gown provided and linen change completed. Patient tolerated well. Will continue to monitor.
[2020-02-24 05:00] VITALS: BP 135/80
[2020-02-24] MEDS: InsuLIN REG 1unit/0.01ml Soln (100units/ml) SC SCH ×4 (05:48→23:57)
[2020-02-24] MEDS: METOCLOPRAMIDE HCL 5MG/ml INJ 2ml VIAL IV SCH ×3 (05:48→17:34)
[2020-02-24] MEDS: ACCU-CHEK COMFORT CURVE STRIP VI SCH ×4 (05:48→23:59)
[2020-02-24 06:10] LABS: Calcium 8.2 mg/dL (8.5-10.1); Magnesium 2.5 mg/dL (1.6-2.6); Potassium 3.9 mmol/L (3.5-5.1)
[2020-02-24 06:14] LABS: BUN/Creatinine Ratio 26.2; Bilirubin, Total 0.3 mg/dL (0.2-1.0); Phosphorus 3.2 mg/dL (2.5-4.90); Total Protein 6.3 g/dL (6.4-8.2)
--- NOTE | 2020-02-24 07:04 | NUR ---
CAN Drain 25 mls of serous fluid emptied.
--- NOTE | 2020-02-24 07:20 | NUR ---
OPENING SHIFT NOTES Assumed care of patient from cage shift manager RN. Patient is alert and oriented x4, patient states she is anxious, will medicate as ordered, no other signs of distress noted. She was updated on the plan of care and she verbalized understanding. Patient has a midline incision with genesis, well approximated, no signs of bleeding or drainage. Patient has a galeana draining clear yellow urine to gravity, no kinks or loops noted in the tubing. Bed is locked, in the lowest position, side rails up x2 and call light is in reach. She was encouraged to call for assistance as needed.
--- NOTE | 2020-02-24 08:32 | NUR ---
PATIENT REFUSING BREAKFAST stated "i don't want to eat right now." She was educated on the importance of advancing her diet and verbalized understanding, will try again later.
[2020-02-24] MEDS: LORazepam 2MG/ML-1ML VIAL IV PRN (08:42)
[2020-02-24 09:11] VITALS: BP 145/83
[2020-02-24] MEDS: PANTOPRAZOLE 40 MG/10 ML VIAL INJ IV SCH (10:06)
[2020-02-24] MEDS: ALPRAZolam 0.5 MG TAB PO SCH ×2 (10:06→21:51)
[2020-02-24] MEDS: SODIUM CHLOR 0.9% PF (SALINE LOCK) 10ML VIAL/SYR IV SCH ×2 (10:06→21:50)
[2020-02-24 11:04] LABS: Basophils # (auto) 0 10 ^3/uL (0-0.2); Basophils % (auto) 0.3 % (0.0-2.0); Eosinophils # (auto) 0.2 10 ^3/uL (0-0.8); Hematocrit 28.4 % (36.0-46.0); Hemoglobin 9.3 g/dL (12.2-16.2); Lymphocytes # (auto) 1.2 10 ^3/uL (0.4-5.4); Lymphocytes % (auto) 11.3 % (10.0-50.0); Mean Corpuscular Hemoglobin 29.4 pg (28.0-32.0); Mean Corpuscular Hgb Conc. 32.6 g/dL (32.0-36.0); Monocytes # (auto) 0.8 10 ^3/uL (0-1.3); Neutrophils # (auto) 8.2 10 ^3/uL (1.6-8.6); Neutrophils % (auto) 78.4 % (37.0-80.0); Platelet Count (auto) 389 10^3/uL (140-450); Red Blood Cells 3.15 10^6/uL (4.0-5.20); Red Cell Distribution Width 14.2 % (11.8-14.3); White Blood Cell 10.4 10^3/uL (4.4-10.8)
--- NOTE | 2020-02-24 12:00 | NUR ---
Attempted to get patient out of bed for gait. Pt is sleepy and cannot keep eyes open. According to patients nurse patient was given Ativan earlier, advised will let patient rest and will chk back later to see if patient can participate in Physical Therapy.
[2020-02-24 13:00] VITALS: BP 140/82
--- NOTE | 2020-02-24 13:01 | NUR ---
PATIENT REFUSING LUNCH stated "I'm not hungry." She was educated on the importance of advancing her diet and verbalized understanding, will try again later.
--- NOTE | 2020-02-24 15:00 | NUR ---
ELEAZAR AT BEDSIDE updated on the patient status. Orders to page Fischl to see if we can advance patient diet, and have PT reevaluate the patient.
--- NOTE | 2020-02-24 15:02 | NUR ---
JEANNETTE PAGED Awaiting call back.
--- NOTE | 2020-02-24 16:28 | NUR ---
CALL FROM [facility] updated on the patient status. New orders received for home health and physical therapy and to advance diet to mechanical soft if patient tolerates dinner. Orders read back and verified.
[2020-02-24 17:18] VITALS: BP 140/88
--- NOTE | 2020-02-24 18:28 | NUR ---
CAN Drain 15 mls of serous fluid emptied.
[2020-02-24] MEDS ORDERED: TPN PER PHARMACY IV NR ×10 (20:00)
--- NOTE | 2020-02-24 21:31 | NUR ---
Paged Dr Negro to clarify previous communication order. Dr Milan returned page; states to hold Xanax but can continue to give pain meds.
[2020-02-24 22:00] VITALS: BP 117/79
[2020-02-25] MEDS: METOCLOPRAMIDE HCL 5MG/ml INJ 2ml VIAL IV SCH ×5 (00:06→23:38)
[2020-02-25] MEDS: HYDROmorphone HCL 2 MG/ML VL IV PRN ×5 (02:25→19:51)
[2020-02-25 05:00] VITALS: BP 128/80
[2020-02-25] MEDS: InsuLIN REG 1unit/0.01ml Soln (100units/ml) SC SCH (06:00)
[2020-02-25] MEDS: ACCU-CHEK COMFORT CURVE STRIP VI SCH (06:22)
[2020-02-25 06:28] LABS: Basophils # (auto) 0.1 10 ^3/uL (0-0.2); Eosinophils # (auto) 0.2 10 ^3/uL (0-0.8); Eosinophils % (auto) 2.2 % (0.0-7.0); Hematocrit 29.5 % (36.0-46.0); Hemoglobin 9.5 g/dL (12.2-16.2); Lymphocytes # (auto) 1.2 10 ^3/uL (0.4-5.4); Lymphocytes % (auto) 10.9 % (10.0-50.0); Mean Corpuscular Hemoglobin 28.8 pg (28.0-32.0); Mean Corpuscular Hgb Conc. 32.3 g/dL (32.0-36.0); Mean Corpuscular Volume 89.1 fL (80.0-100.0); Monocytes # (auto) 0.8 10 ^3/uL (0-1.3); Monocytes % (auto) 6.9 % (0.0-12.0); Platelet Count (auto) 402 10^3/uL (140-450); Red Blood Cells 3.31 10^6/uL (4.0-5.20); Red Cell Distribution Width 14.1 % (11.8-14.3); White Blood Cell 11.3 10^3/uL (4.4-10.8)
[2020-02-25 06:58] LABS: Albumin 2.1 g/dL (3.4-5.0); Calcium 8.4 mg/dL (8.5-10.1); Magnesium 2.6 mg/dL (1.6-2.6); Phosphorus 4.5 mg/dL (2.5-4.90)
[2020-02-25 07:01] LABS: Bilirubin, Total 0.3 mg/dL (0.2-1.0); Total Protein 6.6 g/dL (6.4-8.2)
--- NOTE | 2020-02-25 07:30 | NUR ---
Opening Shift Note RECEIVED REPORT FROM NOC RN. Assumed care of patient, awake and alert. No S/S of distress/SOB or pain. BED IN LOWEST, LOCKED POSITION WITH SIDERAILS UP x2 AND CALL LIGHT WITHIN REACH. PATIENT RECEIVING TPN AT 64 ML/HR. Instructed on POC and to call for assist PRN, will continue to monitor for changes Q1hr and PRN.
[2020-02-25 09:00] VITALS: BP 142/77
--- NOTE | 2020-02-25 09:54 | NUR ---
SPOKE WITH DR. Kallie BUSH. NEW ORDERS RECEIVED. D/C TPN. PHYSICAL THERAPY RE-EVALUATION. Addendum: 02/25/20 at 1106 by REGINO MONACO RN RN CORRECTION: DR. Dionne BUSH.
[2020-02-25] MEDS: PANTOPRAZOLE 40 MG/10 ML VIAL INJ IV SCH (10:23)
[2020-02-25] MEDS: SODIUM CHLOR 0.9% PF (SALINE LOCK) 10ML VIAL/SYR IV SCH ×2 (10:24→21:20)
[2020-02-25] MEDS: PROMETHAZINE HCL 25 MG/ML 1ML IV PRN ×2 (10:24→16:27)
--- NOTE | 2020-02-25 11:04 | NUR ---
DR. Dionne BUSH AT BEDSIDE. NEW ORDERS RECEIVED. D/C AMY. PAGE DR. MACHADO REGARDING CAN DRAIN. CONTACT ENVIRONMENTAL SAFETY SPECIALIST REGARDING PATIENT BEING DISCHARGED TOMORROW.
--- NOTE | 2020-02-25 11:48 | NUR ---
PAGED DR. MACHADO.
--- NOTE | 2020-02-25 11:50 | NUR ---
SPOKE WITH DR. MACHADO REGARDING PATIENT'S CAN DRAIN AND DISCHARGE. DR. MACHADO ADVISED HE WOULD COME UP AND SEE THE PATIENT.
--- NOTE | 2020-02-25 12:29 | NUR ---
Toney catheter dc'd Order to discontinue Toney catheter. Toney dc'd with clean technique following deflation of balloon. Patient tolerated well with no complaints of pain. Continue care.
--- NOTE | 2020-02-25 12:32 | NUR ---
PATIENT STATES THAT DR. MACHADO CAME BY AND WANTS TO KEEP PATIENT UNTIL THURSDAY.
[2020-02-25 13:00] VITALS: BP 117/87
--- NOTE | 2020-02-25 13:07 | NUR ---
REPORT GIVEN TO KANG GREENE.
--- NOTE | 2020-02-25 13:08 | NUR ---
ASSUMED CARE OF PATIENT FROM [place] no signs of distress noted.
--- NOTE | 2020-02-25 14:10 | NUR ---
Nutrition Followup Notes Wt 90.9 kg Pt was asleep at time of rounds with no family at bedside at time of rounds. Pt is s/p partial colon resection and colostomy per MD note. Pt diet was advanced to full liquid with 2 intakes of 25% 02/23 per RN note. Pt is still with TPN @ 68 ml/hr providing 1480 kcals, 90g protein and 1160 NPCs. PN support meets 92-106% of est energy needs and great than 100% of est protein needs. Est energy needs ABW 70 [id number] kcal (20-23 kcal/kg ABW), Est protein needs: 70-77 g (1.0-1.1 g/kg ABW). Will Reassess prn Labs: GLUC 132H, Ca 8.4L, Alb 2.1L BM: Pt with 1 BM on 02/20 per RN note Skin: BS 16 mod risk, full details in health care technician note PES: 1) Altered nutrition related lab values r.t current chronic medical condition aeb mild hypoalb 2) Decreased nutrient needs r/t adiposity aeb pt`s high BMI of 36.6 kgm2 Comments: Will continue to monitor PO status, PN tolerance, skin status, pertinent labs and weight trends. Will f/u in 3-5 days 1) Refer to [employer] dietitian on DC. 2) Advance PN support to meet > 75% of needs. 3) Gradually advance pt diet when medically feasible , as tolerated and per MD approval 3) Continue current plan of care
--- NOTE | 2020-02-25 17:27 | NUR ---
CAN DRAIN 30 ml serosanguineous fluid. Dressing changed.
[2020-02-25] MEDS: HYDROcodone-ACET 10/325MG TAB PO PRN ×2 (17:47→23:38)
--- NOTE | 2020-02-25 19:30 | NUR ---
Opening Shift Note Assumed care of patient, awake and alert. Reported pain. Pain med will be given. Instructed on POC and to call for assist PRN, will continue to monitor for changes Q1hr and PRN.
[2020-02-25] MEDS ORDERED: TPN PER PHARMACY IV NR ×6 (20:00)
--- NOTE | 2020-02-25 20:00 | NUR ---
colostomy bag drained 150ml of brown, liquid stool
[2020-02-25 22:00] VITALS: BP 141/77
[2020-02-26] MEDS: PROMETHAZINE HCL 25 MG/ML 1ML IV PRN ×2 (03:06→21:17)
[2020-02-26] MEDS: HYDROmorphone HCL 2 MG/ML VL IV PRN ×5 (03:06→21:18)
[2020-02-26 05:00] VITALS: BP 140/85
[2020-02-26] MEDS: METOCLOPRAMIDE HCL 5MG/ml INJ 2ml VIAL IV SCH ×3 (05:26→17:06)
[2020-02-26 05:55] LABS: Basophils # (auto) 0.1 10 ^3/uL (0-0.2); Basophils % (auto) 0.8 % (0.0-2.0); Eosinophils # (auto) 0.3 10 ^3/uL (0-0.8); Eosinophils % (auto) 2.9 % (0.0-7.0); Hematocrit 28.2 % (36.0-46.0); Hemoglobin 9.2 g/dL (12.2-16.2); Lymphocytes # (auto) 1.5 10 ^3/uL (0.4-5.4); Mean Corpuscular Hemoglobin 29.2 pg (28.0-32.0); Mean Corpuscular Hgb Conc. 32.7 g/dL (32.0-36.0); Mean Corpuscular Volume 89.1 fL (80.0-100.0); Monocytes # (auto) 0.8 10 ^3/uL (0-1.3); Neutrophils % (auto) 72.3 % (37.0-80.0); Platelet Count (auto) 403 10^3/uL (140-450); Red Blood Cells 3.17 10^6/uL (4.0-5.20); Red Cell Distribution Width 14.6 % (11.8-14.3); White Blood Cell 9.7 10^3/uL (4.4-10.8)
[2020-02-26 06:16] LABS: Albumin 2.3 g/dL (3.4-5.0); Calcium 8.3 mg/dL (8.5-10.1); Magnesium 2.5 mg/dL (1.6-2.6); Potassium 3.6 mmol/L (3.5-5.1)
--- NOTE | 2020-02-26 06:17 | NUR ---
josy drain emptied 15ml of yellow fluid i
[2020-02-26 06:23] LABS: BUN/Creatinine Ratio 29.7; Bilirubin, Direct 0.2 mg/dL (0-0.2); Bilirubin, Total 0.4 mg/dL (0.2-1.0); Total Protein 6.3 g/dL (6.4-8.2)
--- NOTE | 2020-02-26 07:30 | NUR ---
closing note endorsed care to KANG Walton. No sign of distress/pain at this time
[2020-02-26 09:00] VITALS: BP 141/75
[2020-02-26] MEDS: SODIUM CHLOR 0.9% PF (SALINE LOCK) 10ML VIAL/SYR IV SCH ×2 (10:33→21:17)
[2020-02-26] MEDS: PANTOPRAZOLE 40 MG/10 ML VIAL INJ IV SCH (10:33)
[2020-02-26 13:00] VITALS: BP 139/83
--- NOTE | 2020-02-26 13:24 | NUR ---
MADE ATTEMPT TO GET PATIENT OUT OF BED WITH PT. PATIENT HAS AN AVAIL WALKER IN ROOM. PT STATES SHE HAS BEEN GETTING OUT OF BED AND AMBULATING TO THE BATHROOM INDEPENDENTLY. DISCUSSED WITH PATIENT THE IMPORTANCE OF GETTING OUT OF BED OFTEN. PT UNDERSTOOD. PT IS COMPLIANT AND IS ABLE TO FOLLOW COMMANDS AND MOVE INDEPENDENTLY. Addendum: 02/26/20 at 1326 by Kamryn Landry PT Amended: Links added.
[2020-02-26] MEDS ORDERED: traMADol HCL 50 MG TAB PO PRN (15:30)
[2020-02-26 17:00] VITALS: BP 151/83
[2020-02-26 18:32] VITALS: BP 139/73
--- NOTE | 2020-02-26 19:50 | NUR ---
Opening Shift Note Assumed care of patient, awake and alert. No S/S of distress/SOB. Instructed on POC and to call for assist PRN, will continue to monitor for changes Q1hr and PRN.
[2020-02-26 21:56] VITALS: BP 141/63
[2020-02-27] MEDS: METOCLOPRAMIDE HCL 5MG/ml INJ 2ml VIAL IV SCH ×4 (00:01→17:24)
[2020-02-27] MEDS: HYDROmorphone HCL 2 MG/ML VL IV PRN ×5 (01:41→20:46)
[2020-02-27 05:18] VITALS: BP 151/77
--- NOTE | 2020-02-27 06:35 | NUR ---
Patient able to get up to bedside commode with minimal assistance. Patient still complains of pain at CAN drain site. Patient also has drainage from midline abdominal incision [facility] Patient cleaned and will continue to monitor.
[2020-02-27 07:31] LABS: Basophils # (auto) 0.1 10 ^3/uL (0-0.2); Basophils % (auto) 1.3 % (0.0-2.0); Eosinophils # (auto) 0.1 10 ^3/uL (0-0.8); Eosinophils % (auto) 1.4 % (0.0-7.0); Hematocrit 28.7 % (36.0-46.0); Hemoglobin 9.4 g/dL (12.2-16.2); Lymphocytes # (auto) 1.3 10 ^3/uL (0.4-5.4); Lymphocytes % (auto) 13.4 % (10.0-50.0); Mean Corpuscular Hemoglobin 29.2 pg (28.0-32.0); Mean Corpuscular Hgb Conc. 32.9 g/dL (32.0-36.0); Mean Corpuscular Volume 88.8 fL (80.0-100.0); Monocytes # (auto) 0.8 10 ^3/uL (0-1.3); Neutrophils # (auto) 7.4 10 ^3/uL (1.6-8.6); Neutrophils % (auto) 75.9 % (37.0-80.0); Nucleated Red Blood Cells % 0.2 %; Platelet Count (auto) 367 10^3/uL (140-450); Potassium 3.4 mmol/L (3.5-5.1); Red Blood Cells 3.23 10^6/uL (4.0-5.20); Red Cell Distribution Width 14.2 % (11.8-14.3); White Blood Cell 9.7 10^3/uL (4.4-10.8)
[2020-02-27 07:38] LABS: Albumin 2.3 g/dL (3.4-5.0); BUN/Creatinine Ratio 21.7; Bilirubin, Total 0.5 mg/dL (0.2-1.0); Calcium 8.4 mg/dL (8.5-10.1); Magnesium 2.4 mg/dL (1.6-2.6); Total Protein 6.6 g/dL (6.4-8.2)
[2020-02-27 09:00] VITALS: BP 145/76
[2020-02-27 09:25] LABS: Hepatitis B Surface Antibody Negative
--- NOTE | 2020-02-27 09:39 | NUR ---
CAN DRAIN REMOVED BY LOUISE DORANTES.
[2020-02-27] MEDS: PANTOPRAZOLE 40 MG/10 ML VIAL INJ IV SCH (09:53)
[2020-02-27] MEDS: ENOXAPARIN SOD 40 MG/0.4 ML SYRINGE SC SCH (09:54)
[2020-02-27] MEDS: SODIUM CHLOR 0.9% PF (SALINE LOCK) 10ML VIAL/SYR IV SCH ×2 (09:54→22:02)
[2020-02-27 10:04] LABS: Hepatitis A Total Antibody Negative
[2020-02-27] MEDS: PROMETHAZINE HCL 25 MG/ML 1ML IV PRN ×2 (11:04→20:45)
--- NOTE | 2020-02-27 11:30 | NUR ---
PT SEEN BY DR. SOSA, HE SAID HE WILL DISCHARGE THE PT TOMORROW.
[2020-02-27 12:27] LABS: Hepatitis B Core Total AB Negative; Hepatitis B Surface Antigen Negative (Negative)
[2020-02-27 12:28] LABS: Hepatitis C Antibody Negative (Negative)
[2020-02-27 13:00] VITALS: BP 140/74
[2020-02-27 17:00] VITALS: BP 147/79
--- NOTE | 2020-02-27 17:19 | NUR ---
PAGED DR. MACHADO RE: PINKISH FLUID DRAINING FROM LOWER ABDOMEN INCISION SITE.
--- NOTE | 2020-02-27 17:47 | NUR ---
PICC LINE DRESSING CHANGED.
--- NOTE | 2020-02-27 18:25 | NUR ---
DR. MACHADO CALLED, MADE AWARE OF THE PINK DRAINAGE COMING OUT FROM THE LOWER ABDOMEN INCISION SITE, PER DR. MACHADO HE WILL COME AND CHECK TOMORROW.
--- NOTE | 2020-02-27 19:20 | NUR ---
Opening Shift Note Received report from Tara KAPADIA. Assumed care of patient, awake and alert. No S/S of distress/SOB or pain. Instructed on POC and to call for assist PRN. Fall precaution measures in place, will continue to monitor for changes Q1hr and PRN.
[2020-02-27 22:00] VITALS: BP 129/73
[2020-02-28] MEDS: METOCLOPRAMIDE HCL 5MG/ml INJ 2ml VIAL IV SCH ×4 (00:05→17:00)
[2020-02-28] MEDS: HYDROmorphone HCL 2 MG/ML VL IV PRN ×5 (02:31→22:29)
[2020-02-28 05:00] VITALS: BP 143/74
--- NOTE | 2020-02-28 08:00 | NUR ---
Opening Shift Note Assumed care of patient, pt is awake and A&OX4. The patient experiences abdominal pain but tries to relax. No S/S of distress/SOB. Instructed on POC and to call for assist PRN, call light within reach. Bed is locked, in lowest position and side rail up X2. Will continue to monitor for changes Q1hr and PRN.
--- NOTE | 2020-02-28 08:00 | NUR ---
Received pt resting in bed, call light within reach, pt reports pain to abdomen incision site, mid abdomen incision with genesis and sterile strips to mid lower abdomen incision site, no drainage noticed, mild redness noticed to incision below umbilical area around genesis. rt incision with band aid, clean dry and intact, lt abdomen area with colostomy bag draining brown liquid stool. will continue to monitor pt.
[2020-02-28 09:00] VITALS: BP 136/73
[2020-02-28] MEDS: PANTOPRAZOLE 40 MG/10 ML VIAL INJ IV SCH (10:15)
[2020-02-28] MEDS: ENOXAPARIN SOD 40 MG/0.4 ML SYRINGE SC SCH (10:15)
[2020-02-28] MEDS: SODIUM CHLOR 0.9% PF (SALINE LOCK) 10ML VIAL/SYR IV SCH ×2 (10:16→21:46)
--- NOTE | 2020-02-28 10:40 | NUR ---
Called and left a message for Dr. Jordan / surgeon informing him that pt has drainage from the lower abdominal incision site, at 0800 pt's abdominal incision was clean and dry, at 1000 pt had small clear yellow drainage while laying in bed, after pt got out of bed to [facility] pt drip bloody yellow drainage to the floor, pt offered to place a dressing over the sterile strips, pt refused, pt requested only sterile gauze to place over the wound, pt also reported that the drainage is the same amount and color that she has been having,
--- NOTE | 2020-02-28 12:29 | NUR ---
Nutrition Followup Notes Wt 85.0 kg Pt was asleep at time of rounds with no family at bedside at time of rounds. Pt is s/p partial colon resection and colostomy. pt is now off PN support and now on soft diet with inadequate PO of < 50% x 6 per RN doc Est energy needs ABW 70 [id number] kcal (20-23 kcal/kg ABW), Est protein needs: 70-77 g (1.0-1.1 g/kg ABW). Will Reassess prn Labs: CA 8.4 L, ALB 2.3 L AST/ALT 116/221 H BM: Pt with 1 BM on 02/20 per RN note Skin: BS 20 low risk, full details in care aide note PES: 1) Altered nutrition related lab values r.t current chronic medical condition aeb mild hypoalb 2) Decreased nutrient needs r/t adiposity aeb pt`s high BMI of 36.6 kgm2 Comments: Will continue to monitor PO status, skin status, pertinent labs and weight trends. Will f/u in 3-5 days 1) Refer to [employer] dietitian on DC. 2) resume PN support to meet > 75% of needs if pt continues to have poor PO 3) consider ensure Enlive 1 carton bid as PO is low 3) Continue current plan of care
[2020-02-28 13:00] VITALS: BP 127/81
--- NOTE | 2020-02-28 15:31 | NUR ---
SS consult for bsc upon discharge. Contacted [facility] and faxed clinical information for authorization. Contacted [employer]( [phone])and faxed clinical information for medical equipment delivery to home. No further SS concerns or needs at this time.
[2020-02-28] MEDS ORDERED: IOHEXOL 300 MG/ML 100ML BOTTLE IJ ONE (16:35)
[2020-02-28 17:00] VITALS: BP 137/79
[2020-02-28] MEDS ORDERED: OMNIPAQUE ORAL SOLN 500ml 12mg/ml PO ONE (17:03)
--- NOTE | 2020-02-28 17:55 | NUR ---
PATIENT DID NOT WANT TO AMBULATE WITH PT TODAY, BUT DID SAY SHE HAS BEEN WALKING AROUND IN ROOM WITH NO PROBLEMS AT ALL. Addendum: 02/28/20 at 1755 by ZACK MAYER PTT Amended: Links added.
[2020-02-28] MEDS ORDERED: POTASSIUM CHL 20 Meq TABLET PO ONE (18:45)
--- NOTE | 2020-02-28 18:49 | NUR ---
Endorsed to rn shift mgr to give the potassium 40 meq po x1 ordered, unable to give it now due to pt been npo pt just took the contrast for the CT of abdomen and pelvis, pt will be lease picker at 1900.
--- NOTE | 2020-02-28 19:15 | NUR ---
Opening Shift Note Received report from Marietta KAPADIA. Assumed care of patient, awake and alert. No S/S of distress/SOB or pain. Patient NPO, awaiting for CT abdomen exam. Instructed on POC and to call for assist PRN, will continue to monitor for changes Q1hr and PRN.
--- NOTE | 2020-02-28 20:08 | NUR ---
OFF UNIT Patient was brought down to CT Scan department for CT of Abdomen and Pelvis.
[2020-02-28 20:15] VITALS: BP 137/79
--- NOTE | 2020-02-28 20:30 | NUR ---
Patient back to room.
[2020-02-28 22:00] VITALS: BP 139/78
[2020-02-28] MEDS: PROMETHAZINE HCL 25 MG/ML 1ML IV PRN (22:30)
[2020-02-29] MEDS: METOCLOPRAMIDE HCL 5MG/ml INJ 2ml VIAL IV SCH ×5 (00:29→23:15)
[2020-02-29] MEDS: HYDROmorphone HCL 2 MG/ML VL IV PRN ×5 (02:57→22:22)
[2020-02-29 05:13] VITALS: BP 130/75
[2020-02-29 06:48] LABS: Basophils # (auto) 0.1 10 ^3/uL (0-0.2); Basophils % (auto) 1.4 % (0.0-2.0); Eosinophils # (auto) 0.1 10 ^3/uL (0-0.8); Eosinophils % (auto) 1.8 % (0.0-7.0); Hematocrit 27.9 % (36.0-46.0); Hemoglobin 9.2 g/dL (12.2-16.2); Lymphocytes # (auto) 1.2 10 ^3/uL (0.4-5.4); Lymphocytes % (auto) 17.2 % (10.0-50.0); Mean Corpuscular Hemoglobin 29.1 pg (28.0-32.0); Mean Corpuscular Volume 88.2 fL (80.0-100.0); Monocytes # (auto) 0.6 10 ^3/uL (0-1.3); Neutrophils % (auto) 70.6 % (37.0-80.0); Nucleated Red Blood Cells % 0.1 %; Platelet Count (auto) 341 10^3/uL (140-450); Red Blood Cells 3.16 10^6/uL (4.0-5.20); Red Cell Distribution Width 13.9 % (11.8-14.3); White Blood Cell 7.1 10^3/uL (4.4-10.8)
--- NOTE | 2020-02-29 07:00 | NUR ---
Opening Shift Note Received report from pecan sheller nurse. Assumed care of patient, awake and alert. No S/S of distress/SOB or pain. Instructed on POC and to call for assist PRN, will continue to monitor for changes Q1hr and PRN. Bed locked and in lowest position.
[2020-02-29 07:06] LABS: Albumin 2.3 g/dL (3.4-5.0); Calcium 8.4 mg/dL (8.5-10.1); Magnesium 2.4 mg/dL (1.6-2.6); Potassium 3.4 mmol/L (3.5-5.1)
[2020-02-29 07:09] LABS: Bilirubin, Total 0.3 mg/dL (0.2-1.0); Total Protein 6.3 g/dL (6.4-8.2)
[2020-02-29 09:00] VITALS: BP 153/73
[2020-02-29] MEDS: PROMETHAZINE HCL 25 MG/ML 1ML IV PRN (09:08)
[2020-02-29] MEDS: ENOXAPARIN SOD 40 MG/0.4 ML SYRINGE SC SCH (10:00)
[2020-02-29] MEDS: SODIUM CHLOR 0.9% PF (SALINE LOCK) 10ML VIAL/SYR IV SCH ×2 (10:00→22:03)
[2020-02-29] MEDS: PANTOPRAZOLE 40 MG/10 ML VIAL INJ IV SCH (10:00)
[2020-02-29] MEDS ORDERED: POTASSIUM CHL 20 Meq TABLET PO ONE (11:15)
--- NOTE | 2020-02-29 11:16 | NUR ---
Faxed orders for Home Health to [facility] [phone], , Colostomy Supplies to [facility] [phone], FWW to [facility] [phone], and to [facility] for authorization
--- NOTE | 2020-02-29 14:18 | NUR ---
Received a call from [facility] at [facility] [phone] and gave authorization for Home Health with Erika [facility]ierro [phone], [id number], authorization for [facility] [phone],for Colostomy supplies [id number], [facility] [phone] for the sweetie [id number].
--- NOTE | 2020-02-29 14:24 | NUR ---
Lacey Fierro spoke with [facility] product coordinator and stated they accepted the patient and received the authorization.
--- NOTE | 2020-02-29 14:32 | NUR ---
Called [facility] and spoke with Vilma and stated they had not received the authorization from [facility] and gave the auth that was given to me by Lorena from [facility] [id number]
[2020-02-29 15:19] VITALS: BP 151/78
[2020-02-29 17:00] VITALS: BP 139/75
--- NOTE | 2020-02-29 18:20 | NUR ---
COLOSTOMY BAG CHANGED BAG WAS LEAKING, SPONGE BATH COMPLETED AND FULL LINEN CHANGE COMPLETED. PATIENT RESTING BACK IN BED. REPORTS 10/10 ABDOMINAL PAIN, MEDICATED PER MD ORDERS.
--- NOTE | 2020-02-29 19:45 | NUR ---
assumed care, pt. awake, no c/o pain at this time, no sob.
[2020-02-29 23:46] VITALS: BP 151/78
[2020-03-01] MEDS: HYDROmorphone HCL 2 MG/ML VL IV PRN ×5 (02:30→22:05)
[2020-03-01 05:15] VITALS: BP 154/75
[2020-03-01] MEDS: METOCLOPRAMIDE HCL 5MG/ml INJ 2ml VIAL IV SCH ×4 (05:20→23:30)
--- NOTE | 2020-03-01 07:30 | NUR ---
Opening Shift Note Upon entering room patient awake and alert. No signs of distress or pain noted. Respirations even and unlabored. Patient relaxed and calm. Instructed patient on the use of the call light PRN. Call light within reach. Bed locked and in lowest position with two side rails up. Will continue to monitor for changes.
--- NOTE | 2020-03-01 08:39 | NUR ---
Spoke with Yomaira KAPADIA stated the patient has the BSC and FWW at the bedside, express to her to give the patient colostomy supplies to take home until they get delivered to the home, stated she would,
--- NOTE | 2020-03-01 08:49 | NUR ---
Called [facility] [phone] and spoke with Johanne in customer service, stated they have not processed the account yet and it may not be until tomorrow, its takes a couple of days.
[2020-03-01 09:00] VITALS: BP 151/75
--- NOTE | 2020-03-01 10:22 | NUR ---
Pt declined PT treatment stating she is tired from walking around all morning and it going home later today.
[2020-03-01] MEDS: PANTOPRAZOLE 40 MG/10 ML VIAL INJ IV SCH (11:06)
[2020-03-01] MEDS: ENOXAPARIN SOD 40 MG/0.4 ML SYRINGE SC SCH (11:07)
--- NOTE | 2020-03-01 11:10 | NUR ---
PATIENT PROVIDED WITH BAG OF COLOSTOMY BAG SUPPLIES PER ORDERS
[2020-03-01] MEDS: SODIUM CHLOR 0.9% PF (SALINE LOCK) 10ML VIAL/SYR IV SCH ×2 (11:19→22:04)
[2020-03-01] MEDS: PROMETHAZINE HCL 25 MG/ML 1ML IV PRN (11:20)
[2020-03-01 13:00] VITALS: BP 144/80
[2020-03-01] MEDS ORDERED: HYDROcodone-ACET 5/325MG TAB PO PRN (16:30)
[2020-03-01 17:00] VITALS: BP 149/73
--- NOTE | 2020-03-01 17:10 | NUR ---
PATIENT PRESCRIPTION TAKEN TO [facility]
--- NOTE | 2020-03-01 18:53 | NUR ---
PATIENT ROUNDS PATIENT SITTING UP IN BED EATING DINNER. NO S/S OF DISTRESS. WILL ENDORSE CARE TO ADULT EDUCATION TEACHER RN.
--- NOTE | 2020-03-01 19:55 | NUR ---
ASSUMED CARE, PT. AWAKE, NO C/O PAIN, NOT IN DISTRESS.
[2020-03-01 22:00] VITALS: BP 148/88
[2020-03-02] MEDS: HYDROmorphone HCL 2 MG/ML VL IV PRN (03:18)
[2020-03-02 05:00] VITALS: BP 132/70
[2020-03-02] MEDS: METOCLOPRAMIDE HCL 5MG/ml INJ 2ml VIAL IV SCH (05:30)
--- NOTE | 2020-03-02 07:30 | NUR ---
Opening Shift Note Assumed care of patient, awake and alert. No S/S of distress, SOB, patient denies pain at this time. Respirations even and unlabored. Updated on POC and instructed to call for assistance as needed, patient verbalized understanding. Bed locked in lowest position, side rails up x2, call light within reach, safety precautions in place. Will continue to monitor for changes.
--- NOTE | 2020-03-02 08:30 | NUR ---
BLOOD DRAW ATTEMPTED TO PULL BLOOD FROM PICC LINE WITHOUT SUCCESS. PATIENT STATES SHE DOES NOT WANT LAB TO POKE HER AGAIN AND SHE IS GOING HOME ANYWAY SO THERE IS NO POINT. NOTIFIED [employer] INSTRUMENTS TUBE BENDER.
[2020-03-02] MEDS: PANTOPRAZOLE 40 MG/10 ML VIAL INJ IV SCH (08:37)
[2020-03-02] MEDS: SODIUM CHLOR 0.9% PF (SALINE LOCK) 10ML VIAL/SYR IV SCH (08:38)
[2020-03-02] MEDS: ENOXAPARIN SOD 40 MG/0.4 ML SYRINGE SC SCH (08:39)
[2020-03-02 09:00] VITALS: BP 124/83
--- NOTE | 2020-03-02 12:00 | NUR ---
Discharge home Discharge instructions given as ordered. Encourage to follow up with PMD and Dr Jordan as instructed. All questions and concerns addressed. Patient verbalized understanding. Medication reconciliation form completed and copy given to patient. Picc line IV removed with catheter intact, pressure dressing applied. Patient colostomy bag exchanged for new, patient was educated on changing the bag, patient verbalized understanding and performed return demonstration. Telemetry unit returned to ICU. Patient taken to vehicle via wheelchair with all personal belongings, FWW, and bedside commode, accompanied by staff. No distress noted at time of departure.
== END 2020-03-02 12:00 | disposition home health service (06) | DRG 710 ==
LOC: EDBD 10:32 → ER 10:32 → TELE 10:33 → OVERFLOW 15:13 → WEST WING 19:45 → CENTRAL 02-12 20:05 → TELE-CENTR 02-15 01:35 → ICU WEST 02-15 16:51 → TELE-WESTW 02-17 12:04
PROVIDERS: ADMIT Hospitalist; ATTEND Hospitalist
PROC: 02HV33Z Insertion of Infusion Device into Superior Vena Cava, Percutaneous Approach (ICD-10-PCS; 2020-02-13)
PROC: 0D1L0Z4 Bypass Transverse Colon to Cutaneous, Open Approach (ICD-10-PCS; 2020-02-15)
PROC: 0DBL0ZZ Excision of Transverse Colon, Open Approach (ICD-10-PCS; 2020-02-15)
PROC: 0BH17EZ Insertion of Endotracheal Airway into Trachea, Via Natural or Artificial Opening (ICD-10-PCS; 2020-02-15)
PROC: 5A1945Z Respiratory Ventilation, 24-96 Consecutive Hours (ICD-10-PCS; 2020-02-15)
PROC: 0DTN0ZZ Resection of Sigmoid Colon, Open Approach (ICD-10-PCS; principal; 2020-02-15 15:26)
DX: A41.9 Sepsis, unspecified organism (principal); I44.7 Left bundle-branch block, unspecified; F32.9 Major depressive disorder, single episode, unspecified; I10 Essential (primary) hypertension; K42.9 Umbilical hernia without obstruction or gangrene; F41.9 Anxiety disorder, unspecified; Z68.37 Body mass index [BMI] 37.0-37.9, adult; E87.6 Hypokalemia; E66.01 Morbid (severe) obesity due to excess calories; K57.32 Diverticulitis of large intestine without perforation or abscess without bleeding; E88.09 Other disorders of plasma-protein metabolism, not elsewhere classified; F17.210 Nicotine dependence, cigarettes, uncomplicated; I25.10 Atherosclerotic heart disease of native coronary artery without angina pectoris; K44.9 Diaphragmatic hernia without obstruction or gangrene; K56.7 Ileus, unspecified; K74.60 Unspecified cirrhosis of liver; Z82.49 Family history of ischemic heart disease and other diseases of the circulatory system; Z85.3 Personal history of malignant neoplasm of breast; Z90.13 Acquired absence of bilateral breasts and nipples; K56.601 Complete intestinal obstruction, unspecified as to cause; Z90.49 Acquired absence of other specified parts of digestive tract; Z90.710 Acquired absence of both cervix and uterus; Z93.3 Colostomy status; K21.9 Gastro-esophageal reflux disease without esophagitis; M19.90 Unspecified osteoarthritis, unspecified site; R91.1 Solitary pulmonary nodule; Z88.5 Allergy status to narcotic agent; Z88.8 Allergy status to other drugs, medicaments and biological substances; J96.90 Respiratory failure, unspecified, unspecified whether with hypoxia or hypercapnia; K91.89 Other postprocedural complications and disorders of digestive system
CPT/HCPCS: 36415; 36569; 36600; 71045; 74018; 74176; 74177; 74250; 76705; 80048; 80053; 80076; 80202; 81001; 82040; 82378; 82565; 82805; 82962; 83690; 83735; 83880; 84100; 84132; 84478; 84484; 85007; 85025; 85027; 85610; 85730; 86038; 86141; 86704; 86706; 86708; 86803; 86850; 86900; 86901; 87070; 87081; 87205; 87340; 92610; 93005; 93306; 94002; 94003; 94640; 96365; 96367; 96375; 97110; 97116; 97163; 97530; C9113; G0378; J0330; J0696; J1815; J1885; J2001; J2185; J2250; J2405; J2543; J2704; J3480

== ENCOUNTER 2020-05-16 10:24 | Inpatient (IN) | payer MEDICAID ==
[~2020-05-16] VITALS: Ht 157.5 cm; Wt 79.2 kg
[~2020-05-16 10:24] MED LIST changes: -CITA-73 PO
[2020-05-16] MEDS ORDERED: ONDANSETRON HCL 4 MG/2 ML VIAL IV ONE (11:00)
[2020-05-16] MEDS ORDERED: SODIUM CHLORIDE 0.9% 1,000 ML IVB ONE (11:00)
[2020-05-16 11:20] LABS: Basophils # (auto) 0 10 ^3/uL (0-0.2); Basophils % (auto) 0.6 % (0.0-2.0); Eosinophils # (auto) 0.1 10 ^3/uL (0-0.8); Eosinophils % (auto) 1.8 % (0.0-7.0); Hematocrit 34.6 % (36.0-46.0); Hemoglobin 11.3 g/dL (12.2-16.2); Lymphocytes # (auto) 1.8 10 ^3/uL (0.4-5.4); Mean Corpuscular Hemoglobin 27.9 pg (28.0-32.0); Mean Corpuscular Hgb Conc. 32.6 g/dL (32.0-36.0); Mean Corpuscular Volume 85.6 fL (80.0-100.0); Monocytes # (auto) 0.5 10 ^3/uL (0-1.3); Neutrophils % (auto) 66.6 % (37.0-80.0); Nucleated Red Blood Cells % 0.1 %; Platelet Count (auto) 280 10^3/uL (140-450); Red Blood Cells 4.04 10^6/uL (4.0-5.20); Red Cell Distribution Width 15.1 % (11.8-14.3); White Blood Cell 7.5 10^3/uL (4.4-10.8)
[2020-05-16 11:37] LABS: Albumin 3.3 g/dL (3.4-5.0); Calcium 8.8 mg/dL (8.5-10.1); Magnesium 2.3 mg/dL (1.6-2.6); Potassium 3.8 mmol/L (3.5-5.1)
[2020-05-16 11:40] LABS: Bilirubin, Total 0.2 mg/dL (0.2-1.0); Total Protein 7.2 g/dL (6.4-8.2)
[2020-05-16 11:49] LABS: Urine WBC None Seen /hpf (0 - 5)
[2020-05-16 11:54] LABS: INR 0.91 (0.9-1.15); Partial Thromboplastin Time 24.2 sec (23.0-31.2)
[2020-05-16] MEDS ORDERED: HYDROmorphone HCL 2 MG/ML VL IV ONE (12:00)
[2020-05-16] MEDS ORDERED: PROMETHAZINE HCL 25 MG/ML 1ML IV ONE (12:00)
[2020-05-16 12:02] LABS: Urine Bacteria NONE SEEN /hpf (None Seen); Urine Blood Negative /uL (Negative); Urine Specific Gravity 1.007 (1.001-1.035)
[2020-05-16] MEDS ORDERED: cefTRIAXone 1GM/50ML D5W 50 ML IV ONE (12:30)
[2020-05-16] MEDS ORDERED: ACETAMINOPHEN 325 MG TAB PO PRN (14:45)
[2020-05-16] MEDS ORDERED: KETOROLAC TROMETH 30 MG/ML 1ML VIAL IV PRN (14:45)
[2020-05-16] MEDS ORDERED: TEMAZEPAM 15 MG CAP PO PRN (14:45)
[2020-05-16] MEDS ORDERED: ALUM & MAG HYDROX-SIMETH LIQ(MAALOX) 30 ML PO PRN (14:45)
[2020-05-16] MEDS ORDERED: NITROGLYCERIN 0.4 MG SL TAB SL PRN (14:45)
[2020-05-16] MEDS: SOD CHL 0.45% 1,000 ML IV SCH (15:42)
[2020-05-16] MEDS ORDERED: MORPHINE SULF INJ 2 MG/ML SYRINGE 1ML IV PRN (17:45)
[2020-05-16] MEDS: MEPERIDINE HCL (25 MG/ML) 1ML VIAL IV PRN (18:27)
[2020-05-16] MEDS: METOCLOPRAMIDE HCL 5MG/ml INJ 2ml VIAL IV PRN (18:35)
[2020-05-16] MEDS: CYCLOBENZAPRINE HCL 10 MG TAB PO SCH (22:00)
[2020-05-16] MEDS: PIPERACILLIN-TAZOB 3.375GM 100 ML IV SCH (22:00)
[2020-05-17] MEDS: MEPERIDINE HCL (25 MG/ML) 1ML VIAL IV PRN ×3 (00:36→17:19)
[2020-05-17] MEDS: METOCLOPRAMIDE HCL 5MG/ml INJ 2ml VIAL IV PRN ×2 (00:48→09:51)
[2020-05-17 03:14] VITALS: BP 107/68
[2020-05-17] MEDS: HYDROcodone-ACET 5/325MG TAB PO PRN ×3 (03:19→19:49)
[2020-05-17] MEDS: PIPERACILLIN-TAZOB 3.375GM 100 ML IV SCH ×3 (06:07→22:28)
[2020-05-17] MEDS: CYCLOBENZAPRINE HCL 10 MG TAB PO SCH ×3 (06:07→21:10)
[2020-05-17] MEDS: SOD CHL 0.45% 1,000 ML IV SCH ×2 (07:25→22:48)
[2020-05-17 09:00] VITALS: BP 108/66
[2020-05-17] MEDS: ENOXAPARIN SOD 40 MG/0.4 ML SYRINGE SC SCH (09:52)
[2020-05-17] MEDS: TAMOXIFEN CITR 10 MG TAB PO SCH (10:38)
[2020-05-17] MEDS ORDERED: GASTROGRAFIN 120 ML SOL ONE (10:57)
[2020-05-17 13:30] VITALS: BP 131/78
[2020-05-17 16:29] VITALS: BP 108/63
[2020-05-17] MEDS: PROMETHAZINE HCL 25 MG/ML 1ML IV PRN (17:20)
[2020-05-17 22:00] VITALS: BP 124/73
[2020-05-17] MEDS: HYDROmorphone HCL 2 MG/ML VL IV PRN (22:34)
[2020-05-18] VITALS (7 sets, daily range): BP systolic 99–137; BP diastolic 53–77
[2020-05-18] MEDS: HYDROmorphone HCL 2 MG/ML VL IV PRN ×4 (03:40→22:50)
[2020-05-18] MEDS: PROMETHAZINE HCL 25 MG/ML 1ML IV PRN ×3 (03:41→17:54)
[2020-05-18 05:56] LABS: Basophils # (auto) 0 10 ^3/uL (0-0.2); Basophils % (auto) 0.5 % (0.0-2.0); Eosinophils # (auto) 0.1 10 ^3/uL (0-0.8); Eosinophils % (auto) 2.3 % (0.0-7.0); Hematocrit 33.2 % (36.0-46.0); Lymphocytes # (auto) 1.4 10 ^3/uL (0.4-5.4); Lymphocytes % (auto) 25.5 % (10.0-50.0); Mean Corpuscular Hemoglobin 28.3 pg (28.0-32.0); Mean Corpuscular Hgb Conc. 33.2 g/dL (32.0-36.0); Mean Corpuscular Volume 85.3 fL (80.0-100.0); Monocytes # (auto) 0.4 10 ^3/uL (0-1.3); Neutrophils # (auto) 3.5 10 ^3/uL (1.6-8.6); Neutrophils % (auto) 63.7 % (37.0-80.0); Platelet Count (auto) 250 10^3/uL (140-450); Red Blood Cells 3.89 10^6/uL (4.0-5.20); Red Cell Distribution Width 14.8 % (11.8-14.3); White Blood Cell 5.4 10^3/uL (4.4-10.8)
[2020-05-18] MEDS: CYCLOBENZAPRINE HCL 10 MG TAB PO SCH ×3 (05:58→21:25)
[2020-05-18] MEDS: PIPERACILLIN-TAZOB 3.375GM 100 ML IV SCH ×3 (06:00→21:24)
[2020-05-18 06:07] LABS: Calcium 8.4 mg/dL (8.5-10.1); Potassium 3.6 mmol/L (3.5-5.1)
[2020-05-18 06:10] LABS: BUN/Creatinine Ratio 9.6
[2020-05-18] MEDS: ENOXAPARIN SOD 40 MG/0.4 ML SYRINGE SC SCH (09:08)
[2020-05-18] MEDS: TAMOXIFEN CITR 10 MG TAB PO SCH (09:09)
[2020-05-18] MEDS: SOD CHL 0.45% 1,000 ML IV SCH (16:26)
[2020-05-18] MEDS: HYDROcodone-ACET 5/325MG TAB PO PRN ×2 (16:32→21:25)
[2020-05-19] MEDS: PROMETHAZINE HCL 25 MG/ML 1ML IV PRN ×4 (01:29→23:35)
[2020-05-19 05:00] VITALS: BP 100/62
[2020-05-19] MEDS: HYDROmorphone HCL 2 MG/ML VL IV PRN ×4 (05:58→23:35)
[2020-05-19] MEDS: PIPERACILLIN-TAZOB 3.375GM 100 ML IV SCH ×3 (05:58→21:59)
[2020-05-19] MEDS: CYCLOBENZAPRINE HCL 10 MG TAB PO SCH ×3 (06:30→21:59)
[2020-05-19 08:18] VITALS: BP 136/71
[2020-05-19] MEDS: SOD CHL 0.45% 1,000 ML IV SCH (09:30)
[2020-05-19] MEDS: ENOXAPARIN SOD 40 MG/0.4 ML SYRINGE SC SCH (10:30)
[2020-05-19] MEDS: TAMOXIFEN CITR 10 MG TAB PO SCH (10:30)
[2020-05-19 13:06] VITALS: BP 128/76
[2020-05-19 16:55] VITALS: BP 137/70
[2020-05-19] MEDS: HYDROcodone-ACET 5/325MG TAB PO PRN (19:54)
[2020-05-19 20:00] VITALS: BP 129/72
[2020-05-19] MEDS: CELECOXIB 100 MG CAP PO SCH (21:59)
[2020-05-19 22:00] VITALS: BP 129/72
[2020-05-20] VITALS (7 sets, daily range): BP systolic 127–142; BP diastolic 65–75
[2020-05-20] MEDS: CYCLOBENZAPRINE HCL 10 MG TAB PO SCH ×3 (05:55→22:18)
[2020-05-20] MEDS: PIPERACILLIN-TAZOB 3.375GM 100 ML IV SCH ×3 (05:56→22:18)
[2020-05-20 06:00] LABS: Basophils # (auto) 0 10 ^3/uL (0-0.2); Eosinophils # (auto) 0.2 10 ^3/uL (0-0.8); Eosinophils % (auto) 3.8 % (0.0-7.0); Hematocrit 31.7 % (36.0-46.0); Hemoglobin 10.5 g/dL (12.2-16.2); Lymphocytes # (auto) 1.3 10 ^3/uL (0.4-5.4); Lymphocytes % (auto) 31.6 % (10.0-50.0); Mean Corpuscular Hemoglobin 28.2 pg (28.0-32.0); Mean Corpuscular Hgb Conc. 33.2 g/dL (32.0-36.0); Mean Corpuscular Volume 84.9 fL (80.0-100.0); Monocytes # (auto) 0.4 10 ^3/uL (0-1.3); Monocytes % (auto) 8.9 % (0.0-12.0); Neutrophils # (auto) 2.3 10 ^3/uL (1.6-8.6); Neutrophils % (auto) 54.7 % (37.0-80.0); Platelet Count (auto) 228 10^3/uL (140-450); Red Blood Cells 3.74 10^6/uL (4.0-5.20); White Blood Cell 4.2 10^3/uL (4.4-10.8)
[2020-05-20 06:22] LABS: Potassium 3.8 mmol/L (3.5-5.1)
[2020-05-20 06:29] LABS: Albumin 2.8 g/dL (3.4-5.0); BUN/Creatinine Ratio 15.3; Bilirubin, Total 0.3 mg/dL (0.2-1.0); Total Protein 6.4 g/dL (6.4-8.2)
[2020-05-20] MEDS: HYDROmorphone HCL 2 MG/ML VL IV PRN ×4 (06:50→23:44)
[2020-05-20] MEDS: PROMETHAZINE HCL 25 MG/ML 1ML IV PRN ×4 (06:51→23:44)
[2020-05-20] MEDS: CELECOXIB 100 MG CAP PO SCH ×2 (09:00→22:00)
[2020-05-20] MEDS: TAMOXIFEN CITR 10 MG TAB PO SCH (09:01)
[2020-05-20] MEDS: ENOXAPARIN SOD 40 MG/0.4 ML SYRINGE SC SCH (09:02)
[2020-05-20] MEDS: PANTOPRAZOLE 40 MG TAB PO SCH (09:02)
[2020-05-20] MEDS: HYDROcodone-ACET 5/325MG TAB PO PRN (21:17)
[2020-05-21 05:00] VITALS: BP 130/63
[2020-05-21] MEDS: PROMETHAZINE HCL 25 MG/ML 1ML IV PRN (05:54)
[2020-05-21] MEDS: PIPERACILLIN-TAZOB 3.375GM 100 ML IV SCH (05:55)
[2020-05-21] MEDS: CYCLOBENZAPRINE HCL 10 MG TAB PO SCH (05:55)
[2020-05-21] MEDS: HYDROmorphone HCL 2 MG/ML VL IV PRN (05:55)
[2020-05-21 08:35] VITALS: BP 117/84
[2020-05-21] MEDS: TAMOXIFEN CITR 10 MG TAB PO SCH (09:15)
[2020-05-21] MEDS: PANTOPRAZOLE 40 MG TAB PO SCH (09:15)
[2020-05-21] MEDS: ENOXAPARIN SOD 40 MG/0.4 ML SYRINGE SC SCH (09:15)
[2020-05-21] MEDS: HYDROcodone-ACET 5/325MG TAB PO PRN (09:16)
[2020-05-21] MEDS: CELECOXIB 100 MG CAP PO SCH (09:16)
[2020-05-21] MEDS ORDERED: PANT40T PO (09:36)
[2020-05-21] MEDS ORDERED: CYCL-611 PO (09:36)
[2020-05-21] MEDS ORDERED: CEL100T PO (09:36)
[2020-05-21] MEDS ORDERED: AMOX500T86 PO (09:36)
== END 2020-05-21 12:00 | disposition home or self-care (01) | DRG 251 ==
LOC: ER 10:24 → OVERFLOW 10:25 → CENTRAL 05-17 02:46
PROVIDERS: ADMIT Hospitalist; ATTEND Hospitalist
DX: R10.12 Left upper quadrant pain (principal); K52.9 Noninfective gastroenteritis and colitis, unspecified; F41.9 Anxiety disorder, unspecified; F17.210 Nicotine dependence, cigarettes, uncomplicated; Z20.822 Contact with and (suspected) exposure to COVID-19; I10 Essential (primary) hypertension; M81.0 Age-related osteoporosis without current pathological fracture; R11.2 Nausea with vomiting, unspecified; K21.9 Gastro-esophageal reflux disease without esophagitis; Z82.49 Family history of ischemic heart disease and other diseases of the circulatory system; Z90.49 Acquired absence of other specified parts of digestive tract; Z85.3 Personal history of malignant neoplasm of breast; Z93.3 Colostomy status; Z88.5 Allergy status to narcotic agent; Z90.710 Acquired absence of both cervix and uterus; Z88.8 Allergy status to other drugs, medicaments and biological substances; Z90.10 Acquired absence of unspecified breast and nipple
CPT/HCPCS: 36415; 71045; 74176; 74250; 80048; 80053; 81001; 83690; 83735; 85025; 85610; 85652; 85730; 86141; 87040; 87086; 87426; 93005; G0378; J0696; J1885; J2543

== ENCOUNTER 2020-10-26 12:21 | Emergency (ER) | payer MEDICAID ==
[~2020-10-26] VITALS: Ht 157.5 cm; Wt 83.9 kg
[~2020-10-26 12:21] MED LIST changes: +AMOX500T86 PO; +CEL100T PO; +CYCL-611 PO; +PANT40T PO
[2020-10-26 13:07] VITALS: BP 122/81
[2020-10-26] MEDS ORDERED: PROMETHAZINE HCL 25 MG/ML 1ML IM ONE (14:45)
[2020-10-26] MEDS ORDERED: HYDROmorphone HCL 2 MG/ML VL IM ONE (14:45)
== END 2020-10-26 15:32 | disposition home or self-care (01) ==
LOC: ER 12:21
DX: J20.9 Acute bronchitis, unspecified (principal); G89.29 Other chronic pain; M54.5 Low back pain; K21.9 Gastro-esophageal reflux disease without esophagitis; F17.210 Nicotine dependence, cigarettes, uncomplicated; Z20.822 Contact with and (suspected) exposure to COVID-19; Z90.49 Acquired absence of other specified parts of digestive tract; Z90.710 Acquired absence of both cervix and uterus; Z90.89 Acquired absence of other organs
CPT/HCPCS: 36415; 71045; 87426; 96372; 99284; J1170; J2550

== ENCOUNTER 2020-12-21 13:11 | Emergency (ER) | payer MEDICAID ==
[~2020-12-21] VITALS: Ht 154.9 cm; Wt 89.4 kg
[2020-12-21 13:14] VITALS: BP 131/80
[2020-12-21 14:13] LABS: Basophils # (auto) 0.1 10 ^3/uL (0-0.2); Basophils % (auto) 1.6 % (0.0-2.0); Eosinophils # (auto) 0.1 10 ^3/uL (0-0.8); Eosinophils % (auto) 1.5 % (0.0-7.0); Hematocrit 42.9 % (36.0-46.0); Hemoglobin 14.1 g/dL (12.2-16.2); Lymphocytes # (auto) 2.1 10 ^3/uL (0.4-5.4); Lymphocytes % (auto) 31.6 % (10.0-50.0); Mean Corpuscular Hemoglobin 29.8 pg (28.0-32.0); Mean Corpuscular Hgb Conc. 32.9 g/dL (32.0-36.0); Mean Corpuscular Volume 90.5 fL (80.0-100.0); Monocytes # (auto) 0.5 10 ^3/uL (0-1.3); Monocytes % (auto) 7.1 % (0.0-12.0); Neutrophils # (auto) 3.9 10 ^3/uL (1.6-8.6); Neutrophils % (auto) 58.2 % (37.0-80.0); Nucleated Red Blood Cells % 0.2 %; Red Blood Cells 4.74 10^6/uL (4.0-5.20); Red Cell Distribution Width 15.4 % (11.8-14.3); White Blood Cell 6.7 10^3/uL (4.4-10.8)
[2020-12-21 14:22] LABS: Albumin 3.8 g/dL (3.4-5.0); Anion Gap 10 (5-15); Blood Urea Nitrogen 13 mg/dL (7-18); Carbon Dioxide 21 mmol/L (21-32); Chloride 111 mmol/L (98-107); Glucose 81 mg/dL (74-106); Potassium 3.9 mmol/L (3.5-5.1); Sodium 142 mmol/L (136-145)
[2020-12-21 14:28] LABS: Alanine Aminotransferase 20 U/L (13-56); Alkaline Phosphatase 68 U/L (45-117); Aspartate Aminotransferase 14 U/L (15-37); BUN/Creatinine Ratio 16.9; Bilirubin, Total 0.4 mg/dL (0.2-1.0); GFR African American 100 mL/min; GFR Non-African American 82 mL/min; Total Protein 7.7 g/dL (6.4-8.2)
[2020-12-21 14:29] LABS: Urine Bacteria NONE SEEN /hpf (None Seen); Urine Blood Negative /uL (Negative); Urine Specific Gravity 1.016 (1.001-1.035); Urine WBC <1 /hpf (0 - 5)
== END 2020-12-21 15:00 | disposition home or self-care (01) ==
LOC: ER 13:12
DX: R10.12 Left upper quadrant pain (principal); R10.32 Left lower quadrant pain; K21.9 Gastro-esophageal reflux disease without esophagitis; F17.210 Nicotine dependence, cigarettes, uncomplicated; Z90.49 Acquired absence of other specified parts of digestive tract; Z90.710 Acquired absence of both cervix and uterus; Z90.89 Acquired absence of other organs; Z79.2 Long term (current) use of antibiotics; Z79.899 Other long term (current) drug therapy; Z88.5 Allergy status to narcotic agent; Z88.8 Allergy status to other drugs, medicaments and biological substances
CPT/HCPCS: 36415; 71045; 74176; 80053; 81001; 84484; 85025

== ENCOUNTER 2024-12-04 12:04 | Inpatient (IN) | payer MEDICAID ==
[~2024-12-04] VITALS: Ht 154.9 cm; Wt 97.5 kg
--- NOTE | 2024-12-04 12:59 | ED.PDOC ---
History of Present Illness HPI Comments 59-year-old female presents to the ER with prior medical history of anxiety, arthritis, cancer, GERD, fibromyalgia: Surgical history of cholecystectomy, hernia repair x2, hysterectomy, tonsillectomy and a chief complaint of body pain. Patient reports on having a prolapsed bladder and has not been able to s leep as well as having lower extremity swelling after work, and lastly back and hand pain. Patient notes that she is very tired and all these symptoms all these symptoms have started during the past two weeks. Patient has a an appointment with her primary physician but has not seen any physician regarding these symptoms except for the prolapse bladder. Denies chills, fever, N/V/D, SOB, CP. No other associated symptoms, modifiers, recent injuries or sick contacts present at this time. Chief Complaint: Body Pain Time Seen by MD: 12:55 Primary Care Provider: MELISA Reviewed Notes: Nurses Notes, Medications, Allergies Allergies: Coded Allergies: Morphine (Unverified Allergy, Intermediate, 09/14/19) PATIENT STATES SHE HAD SEVERVE ABDOMINAL PAIN AND NAUSEA WHEN MEDICATION WAS ADMINISTERED IN THE ED Codeine (Unverified Allergy, Unknown, NAUSEA, 09/29/17) Metronidazole (Verified Allergy, Unknown, 10/21/19) Home Meds Active Scripts Pantoprazole Sodium Sesquihydr (Protonix) 40 Mg Tab, 40 MG PO DAILY for 5 Days, #5 TAB Prov:YESSI COHEN MD 12/04/24 Amoxicillin & Pot Clavulanate (Augmentin) 500 Mg Tab, 1 TAB PO BID, #14 TAB Prov:JOVANNA HARRELL MD 05/21/20 Pantoprazole Sodium Sesquihydr (Pantoprazole Sodium) 40 Mg Tab, 40 MG PO DAILY, #30 TAB Prov:JOVANNA HARRELL MD 05/21/20 Cyclobenzaprine HCl (Cyclobenzaprine Hydrochlo) 10 Mg Tab, 5 MG PO TID, #20 TAB Prov:JOVANNA HARRELL MD 05/21/20 Celecoxib (CeleBREX CAPSULE) 100 Mg Cp, 100 MG PO Q12HR, #20 CAP Prov:JOVANNA HARRELL MD 05/21/20 Reported Medications Tamoxifen Citrate (Tamoxifen Citrate) 20 Mg Tab, 20 MG PO DAILY 09/30/17 Information Source: Patient Mode of Arrival: Ambulatory Severity: Moderate Timing: Weeks Duration: Since onset Prehospital treatment: None Past Medical History PAST MEDICAL HISTORY: Anxiety, Arthritis, Cancer, GERD Past Medical History (Other): Fibromyalgia Surgical History: Cholecystectomy, Hernia Repair (X2), Hysterectomy, Tonsi llectomy ENVIRONMENTAL PROTECTION GEOLOGIST History: No Pertinent ENVIRONMENTAL PROTECTION GEOLOGIST History Family History Family History: Reviewed,noncontributory to illness, Unknown Social History Smoker: Unknown Alcohol: Unknown Drugs: Unknown Lives In: Home Constitutional: reports: others (Extremity swelling after work, back pain, hand pain, tired); denies: chills, diaphoresis, fatigue, fever, malaise, sweats, weakness EENTM: denies: blurred vision, double vision, ear bleeding, ear discharge, ear drainage, ear pain, ear ringing, eye pain, eye redness, hearing loss, mouth pain, mouth swelling, nasal discharge, nose bleeding, nose congestion, nose pain, photophobia, tearing, throat pain, throat swelling, voice changes, others Respiratory: denies: cough, hemoptysis, orthopnea, SOB at rest, shortness of breath, SOB with excertion, stridor, wheezing, others Cardiovascular: denies: chest pain, dizzy spells, diaphoresis, Dyspnea on exer tion, edema, irregular heart beat, left arm pain, lightheadedness, palpitations, PND, syncope, others Gastrointestinal: denies: abdomen distended, abdominal pain, blood streaked bowels, constipated, diarrhea, dysphagia, difficulty swallowing, hematemesis, melena, nausea, poor appetite, poor fluid intake, rectal bleeding, rectal pain, vomiting, others Genitourinary: denies: abnormal vagina bleeding, burning, dyspareunia, dysuria, flank pain, frequency, hematuria, incontinence, pain, , vagina discharge, urgency, others Neurological: denies: dizziness, fainting, headache, left sided numbness, left sided weakness, numbness, paresthesia, pre-existing deficit, right sided numbness, right sided weakness, seizure, speech problems, tingling, tremors, weakness, others Musculoskeletal: reports: back pain; denies: gout, joint pain, joint swelling, muscle pain, muscle stiffness, neck pain, others Integumetry: denies: bruises, change in color, change in hair/nails, dryness, laceration, lesions, lumps, rash, wounds, others Allergic/Immunocompromised: denies: Difficulty Healing, Frequent Infections, Hives, Itching, others Hematologic/Lymphatic: denies: anemia, blood clots, easy bleeding, easy bruising, swollen glands, others Endocrine: denies: excessive hunger, excessive sweating, excessive thirst, excessive urination, flushing, intolerance to cold, intolerance to heat, unexplained weight gain, unexplained weight loss, others Psychiatric: denies: anxiety, bipolar disorder, depression, hopeless, panic disorder, schizophrenia, sleepless, suicidal, others All Other Systems: Reviewed and Negative Physical Exam General Appearance: Moderate Distress, Normal HEENT: Normal ENT Inspection, Pharynx Normal, TMs Normal Neck: Full Range of Motion, Non-Tender, Normal, Normal Inspection Respiratory: Chest Non-Tender, Lungs Clear, No Accessory Muscle Use, No Respiratory Distress, Normal Breath Sounds Cardiovascular: No Edema, No JVD, No Murmur, No Gallop, Normal Peripheral Pulses, Regular Rate/Rhythm Breast Exam: Deferred Gastrointestinal: No Organomegaly, Non Tender, No Pulsatile Mass, Normal Bowel Sounds, Soft Genitalia: Deferred Pelvic: Deferred Rectal: Deferred Extremities: No calf tenderness, Normal capillary refill, Normal inspection, Normal range of motion, Non-tender, No pedal edema Musculoskeletal : Apperance: Normal Neurologic: Alert, pot room supervisor II-XII nml as Tested, No Motor Deficits, Normal Affect, Normal Mood, No Sensory Deficits Cerebellar Function: Normal Reflexes: Normal Skin: Dry, Normal Color, Warm Peripheral Pulses: 3+ Radial (R), 3+ Radial (L) Lymphatic: No Adenopathy Was a procedure done? Was a procedure done?: No Differential Dx Considerations may include: Anemia Electrolyte imbalance X-Ray, Labs, Meds, VS Vital Signs Date Time Temp Pulse Resp B/P (MAP) Pulse Ox O2 Delivery O2 Flow Rate FiO2 12/04/24 12:05 98.8 84 15 148/76 97 98.8 Lab Test 12/04/24 14:25 12/04/24 13:03 Range/Units Urine Color Yellow Yellow Urine Clarity Hazy H Clear Urine pH 6.0 5.0-9.0 Urine Specific Gregory 1.024 1.001-1.035 Urine Protein Negative Negative Urine Ketones Negative Negative Urine Blood Negative Negative /uL Urine Nitrite Negative Negative Urine Bilirubin Negative Negative Urine Urobilinogen Normal Negative mg/dL Urine Leukocyte Esterase Negative Negative /uL Urine RBC 1 0 - 4 /hpf Urine Microscopic WBC 3 0-5 /HPF Urine Squamous Epithelial Cells Mod <5 /hpf Urine Bacteria Few H None Seen /hpf Urine Glucose Normal Normal mg/dL White Blood Count 7.0 4.4-10.8 10^3/uL Red Blood Count 4.47 4.0-5.20 10^6/uL Hemoglobin 13.3 12.2-16.2 g/dL Hematocrit 40.2 36.0-46.0 % Mean Corpuscular Volume 90.0 80.0-100.0 fL Mean Corpuscular Hemoglobin 29.8 28.0-32.0 pg Mean Corpuscular Hemoglobin Concent 33.1 32.0-36.0 g/dL Red Cell Distribution Width 14.8 H 11.8-14.3 % Platelet Count 265 140-450 10^3/uL Mean Platelet Volume 8.5 6.9-10.8 fL Neutrophils (%) (Auto) 56.9 37.0-80.0 % Lymphocytes (%) (Auto) 32.5 10.0-50.0 % Monocytes (%) (Auto) 8.0 0.0-12.0 % Eosinophils (%) (Auto) 1.9 0.0-7.0 % Basophils (%) (Auto) 0.7 0.0-2.0 % Neutrophils # (Auto) 4.0 1.6-8.6 10 ^3/uL Lymphocytes # (Auto) 2.3 0.4-5.4 10 ^3/uL Monocytes # (Auto) 0.6 0-1.3 10 ^3/uL Eosinophils # (Auto) 0.1 0-0.8 10 ^3/uL Basophils # (Auto) 0.1 0-0.2 10 ^3/uL Nucleated Red Blood Cells 0.1 % Sodium Level 141 136-145 mmol/L Potassium Level 4.0 3.5-5.1 mmol/L Chloride Level 108 H 98-107 mmol/L Carbon Dioxide Level 23 20-31 mmol/L Anion Gap 10 5-15 Blood Urea Nitrogen 9 9-23 mg/dL Creatinine 0.69 0.550-1.02 mg/dL Glomerular Filtration Rate Calc 99 >90 mL/min BUN/Creatinine Ratio 13.0 10.0-20.0 Serum Glucose 88 74-106 mg/dL Calcium Level 9.1 8.7-10.4 mg/dL Patient alert. She is comfortable. Abdomen is soft nontender. Vitals stable. Ambulating. No leg swelling. No shortness a breath. No chest pain. WBC within normal limits. Hemoglobin within normal limits. Pristine physical examination. She will need colonoscopy. Possible gastritis. Was given prescription of Protonix. Explained to the patient. Was told to follow up with her primary care physician. Was told to come back if there is any problem. Time of 1ST Reevaluation: 13:25 Reevaluation 1ST: Improved Time of 2ND Reevaluation: 15:12 Reevaluation 2ND: Improved Patient Education/Counseling: Diagnosis, Treatment, Prognosis Family Education/Counseling: No Family Present SEPSIS Sepsis Screen Date sepsis recognized/suspect: Dec 04, 2024 Time Sepsis recognized/suspect: 1207 Recent Procedure: No On Antibiotic Therapy: No Respiratory Rate >20: No Heart Rate >90: No Temp<36 C (96.8 F) or >38.3 C: No SBP <90 or MAP <65 mmHG: No New Acute Mental Status Change: No Is the patient on CPAP, BIPAP,: No Physician Orders Ct Ab Pel Wo Con-No Oral Or Iv (12/04/24 16:04) Vital Signs Date Time Temp Pulse Resp B/P (MAP) Pulse Ox O2 Delivery O2 Flow Rate FiO2 12/04/24 12:05 98.8 84 15 148/76 97 98.8 Laboratory Tests Test 12/04/24 13:03 White Blood Count 7.0 10^3/uL (4.4-10.8) Departure 1 Departure Time of Disposition: 15:14 Impression: Primary Impression: HTN (hypertension) Qualified Codes: I10 - Essential (primary) hypertension Additional Impression: Gastritis Qualified Codes: K29.00 - Acute gastritis without bleeding Disposition: 01 HOME / SELF CARE / HOMELESS Condition: Good e-Prescriptions Pantoprazole Sodium Sesquihydr (Protonix) 40 Mg Tab 40 MG PO DAILY for 5 Days, #5 TAB Prov: YESSI COHEN MD 12/04/24 Discharged With: Self Critical Care Note Critical Care Time?: No Stability Stability form required: No I personally scribed for YESSI COHEN MD ([email or web address]) on 12/04/24 at 12:59. Electronically submitted by Liban Maguire ([email or web address]). YESSI COHEN MD Dec 04, 2024 12:59
[2024-12-04 13:17] LABS: Hematocrit 40.2 % (36.0-46.0); Hemoglobin 13.3 g/dL (12.2-16.2); Mean Corpuscular Hemoglobin 29.8 pg (28.0-32.0); Mean Corpuscular Volume 90.0 fL (80.0-100.0); Nucleated Red Blood Cells % 0.1 %
[2024-12-04 13:31] LABS: Potassium 4.0 mmol/L (3.5-5.1); Sodium 141 mmol/L (136-145)
[2024-12-04 13:32] LABS: Anion Gap 10 (5-15); Calcium 9.1 mg/dL (8.7-10.4); Carbon Dioxide 23 mmol/L (20-31)
[2024-12-04 13:37] LABS: BUN/Creatinine Ratio 13.0 (10.0-20.0); Blood Urea Nitrogen 9 mg/dL (9-23); Chloride 108 mmol/L (98-107); Glucose 88 mg/dL (74-106)
[2024-12-04 14:50] LABS: Urine Protein, UAD Negative (Negative)
[2024-12-04] MEDS ORDERED: PANT40TA2 PO (15:15)
--- NOTE | 2024-12-04 17:42 | DVH ---
Exam: CT CT AB PEL WO CON-NO ORAL OR IV History: colitis Comparison Study: CT ABD PELVIS WO CONTRAST on DOS: 12/21/20, CT ABD PELVIS WO CONTRAST on DOS: 1 TECHNIQUE: Multidetector CT of the abdomen was performed from lung bases to pubic symphysis. Imaging was performed without IV contrast. Axial, coronal and sagittal multiplanar reformats were obtained fr om the axial data set by the technologist. Radiation Dose Information: CT Dose: CTDI volume is 20.82 mGy. Dose-length product is 980.33 mGy*cm FINDINGS: Evaluation of solid organs is limited due to lack of intravenous contrast use. Findings: Lung Bases: No acute or significant lung base finding. Normal heart size. No pleural or pericardial effusion. Liver: The liver is normal in size. No focal lesions. Gallbladder and Biliary Tree: Gallbladder has been surgically removed. Spleen: Unremarkable Pancreas: The pancreas is grossly normal in appearance. Adrenal Glands: Unremarkable Kidneys: Kidneys are grossly normal without calculi or hydronephrosis. Bladder: Grossly unremarkable for degree of distention. Bowel: The stomach is grossly normal in appearance. Small bowel and colon are normal in caliber and d istribution. The appendix is not visualized; however, no secondary findings of acute appendicitis id entified. Ascites: Absent Lymphadenopathy: No mesenteric, retroperitoneal or periportal lymphadenopathy. Abdominal Wall and Mesentery: Stoma is noted in the lower left anterior abdominal wall with peristoma l herniation of mesenteric fat and bowel measuring 14.4 cm in transverse dimension and 6.3 cm in AP dimension. There are no abnormally dilated bowel loo ps or thickened bowel wall. Correlate clinically for emptying of the stoma May suggest c or obstruct ion. There are no CT findings to suggest bowel obstruction at this time. Current study is compared wi th the previous study of 12/21/2020. There are no prior reports for comparison. There appears to have been increased herniation of bowel and mesenteric fat in the left lower abdomen when compared to 12/21/2020. Cranial caudal length of the herniation currently measures proximally 13 cm. On the previous study 2020 it measured 9 cm. Vasculature: The visualized abdominal aorta is normal in size and caliber. Evaluation of abdominal a nd pelvic vessels is limited due to lack of intravenous contrast. Pelvic Organs: Unremarkable Musculoskeletal: No aggressive focal bony lesions, acute fractures or dislocation. Soft tissues: Unremarkable IMPRESSION: 1. Stoma left lower anterior abdominal wall. 2. Herniation of mesenteric fat and bowel as increased around the stoma into the subcutaneous tissues when compared to December 21, 2020. 3. There are no findings to suggest bowel obstruction. Further confirmation of this may be obtained with a small-bowel follow-through. Radiation optimization: All CT scans at this facility use at least one of these dose optimization te chniques: automated exposure control mA and/or kV adjustment per patient size (includes targeted exa ms where dose is matched to clinical indication) or iterative reconstruction.
[2024-12-04] MEDS: HYDROmorphone HCL 2 MG/ML VL/or syr IV ONE (19:41)
[2024-12-04] MEDS: ONDANSETRON HCL 4 MG/2 ML VIAL IV ONE (19:42)
[2024-12-04] MEDS ORDERED: DOCUSATE SOD 100 MG CAP PO PRN (23:30)
--- NOTE | 2024-12-04 23:36 | DVHHPRES ---
History of Present Illness Resident Creating Document: SANDEEP VASQUEZ RESIDENT History of Present Illness History of Present Illness (HPI): Akila Murry is a 59-year-old female with a complex medical history including rheumatoid arthritis, breast cancer status post mastectomy, prior intestinal perforation with a colostomy bag, fibromyalgia, anxiety disorder, rheumatoid arthritis, and gastroesophageal reflux disease (GERD) presented to the hospital with complaints of lower abdominal and suprapubic pain persisting for the past three days. She describes the pain as dull, constant, and severe, rating it 8/10 in intensity. The pain radiates to the vagina and rectum, and she reports no identifiable aggravating or relieving factors. In addition to the abdominal pain, the patient notes bilateral leg swelling. She also reports having a prolapsed bladder and is currently being referred to , a urologist, by her primary care physician for further evaluation. The patient denies any fever, trauma, or vaginal discharge. Past Medical History (PMH): rheumatoid arthritis, breast cancer, intestinal perforation, fibromyalgia, anxiety disorder, rheumatoid arthritis, and gastroesophageal reflux disease Past Surgical History (PSH): Cholecystectomy, mastectomy, hysterectomy, tonsillectomy Family history (FH): No Relevant family history EtOH: Denies alcohol use Smoking /Vapin pack year smoking history Recreational Drugs: Denies recreational drug use Residence: Lives with mother and daughter Home Medications: Citalopram Allergies: Codeine, metronidazole, morphine PCP: Dr. Zarate Specialist relevant to admission: Dr. Nam, urologist Review of Systems Review of Systems CONSTITUTIONAL: Fever, night sweats, weight loss, Lymphadenopathy, ecchymoses, fatigue: Negative DERMATOLOGIC: Rash, New/growing/changing skin lesions: Negative HEENT: Vision change, eye pain, Rhinorrhea, sinus pain, epistaxis, dysphagia, odynophagia, globus sensation, Change in hearing, tinnitus, vertigo, otalgia, Dental problems, oral ulcers or lesions: : Negative ENDOCRINE: Weight change, heat or cold intolerance, tremor, insomnia, neck pain or swelling, Polyuria, polydipsia, polyphagia, Abnormal hair growth, change in nails: Negative CARDIOVASCULAR: Chest pain, palpitations, syncope, Edema, cyanosis, claudication, Orthopnea, paroxysmal nocturnal dyspnea: Negative PULMONARY: Shortness of breath, dyspnea with exertion, Cough, hemoptysis, wheezing, chest pain : Negative. GI: Nausea, vomiting, diarrhea, melena, hematochezia, Change in appetite, abdominal pain, change in bowel habits or stools: Negative. Complains of abdominal pain : Dysuria, frequency, urgency, Urinary incontinence, hematuria, foamy urine, nocturia, Change in libido, erectile dysfunction, Change in menses, dysmenorrhea, dyspareunia, pelvic pain: : Negative MUSCULOSKELETAL: Complains of swelling in the leg, muscle pain, back pain: : Negative NEUROLOGIC: Headache, scotoma, Change in smell or taste, change in facial muscles, Muscle weakness, paresthesias, anesthesia, Ataxia, change in speech: Negative PSYCHIATRIC: Depression, anxiety, hallucinations, manisha, suicidal/homicidal thoughts, Binging, purging: Negative Allergies: Coded Allergies: Morphine (Unverified Allergy, Intermediate, 09/14/19) PATIENT STATES SHE HAD SEVERVE ABDOMINAL PAIN AND NAUSEA WHEN MEDICATION WAS ADMINISTERED IN THE ED Codeine (Unverified Allergy, Unknown, NAUSEA, 09/29/17) Metronidazole (Verified Allergy, Unknown, 10/21/19) Medications Current Medications Medications Dose Ordered Sig/George Route Start Time Stop Time Status Last Admin Dose Admin Docusate Sodium 100 mg BIDPRN PRN PO 12/04/24 23:30 UNV Exam Vital Signs Vital Signs Date Time Temp Pulse Resp B/P (MAP) Pulse Ox O2 Delivery O2 Flow Rate FiO2 12/04/24 19:41 77 16 145/70 12/04/24 18:58 98.1 99 98.1 12/04/24 18:58 Room Air Exam General Appearance: Alert, Oriented X3, Cooperative, patient is in acute distress HEENT: Atraumatic, PERRLA, EOMI, Mucous membrane moist/pink Respiratory: Clear to auscultation, Normal air movement Cardiovascular: Regular rate, Normal S1, Normal S2, No murmurs, no chest wall tenderness Abdominal: Normal bowel sounds, Soft, No tenderness, No hepatospenomegaly, No masses Extremities: Bilateral nonpitting pedal edema Skin: No rashes, No breakdown, No significant lesion Neuro: Normal gait, Normal speech, Strength at 5/5 X4 ext, Normal tone, Sensation intact, Cranial nerves 3-12 NL, Reflexes 2+ Psych/Mental Status: Mental status NL, Mood NL Vaginal examination for bladder prolapse done with Fraternity Adviser, KANG Reza Labs/Xrays Labs Test 12/04/24 14:25 12/04/24 13:03 Range/Units Urine Color Yellow Yellow Urine Clarity Hazy H Clear Urine pH 6.0 5.0-9.0 Urine Specific [place] 1.024 1.001-1.035 Urine Protein Negative Negative Urine Ketones Negative Negative Urine Blood Negative Negative /uL Urine Nitrite Negative Negative Urine Bilirubin Negative Negative Urine Urobilinogen Normal Negative mg/dL Urine Leukocyte Esterase Negative Negative /uL Urine RBC 1 0 - 4 /hpf Urine Microscopic WBC 3 0-5 /HPF Urine Squamous Epithelial Cells Mod <5 /hpf Urine Bacteria Few H None Seen /hpf Urine Glucose Normal Normal mg/dL White Blood Count 7.0 4.4-10.8 10^3/uL Red Blood Count 4.47 4.0-5.20 10^6/uL Hemoglobin 13.3 12.2-16.2 g/dL Hematocrit 40.2 36.0-46.0 % Mean Corpuscular Volume 90.0 80.0-100.0 fL Mean Corpuscular Hemoglobin 29.8 28.0-32.0 pg Mean Corpuscular Hemoglobin Concent 33.1 32.0-36.0 g/dL Red Cell Distribution Width 14.8 H 11.8-14.3 % Platelet Count 265 140-450 10^3/uL Mean Platelet Volume 8.5 6.9-10.8 fL Neutrophils (%) (Auto) 56.9 37.0-80.0 % Lymphocytes (%) (Auto) 32.5 10.0-50.0 % Monocytes (%) (Auto) 8.0 0.0-12.0 % Eosinophils (%) (Auto) 1.9 0.0-7.0 % Basophils (%) (Auto) 0.7 0.0-2.0 % Neutrophils # (Auto) 4.0 1.6-8.6 10 ^3/uL Lymphocytes # (Auto) 2.3 0.4-5.4 10 ^3/uL Monocytes # (Auto) 0.6 0-1.3 10 ^3/uL Eosinophils # (Auto) 0.1 0-0.8 10 ^3/uL Basophils # (Auto) 0.1 0-0.2 10 ^3/uL Nucleated Red Blood Cells 0.1 % Sodium Level 141 136-145 mmol/L Potassium Level 4.0 3.5-5.1 mmol/L Chloride Level 108 H 98-107 mmol/L Carbon Dioxide Level 23 20-31 mmol/L Anion Gap 10 5-15 Blood Urea Nitrogen 9 9-23 mg/dL Creatinine 0.69 0.550-1.02 mg/dL Glomerular Filtration Rate Calc 99 >90 mL/min BUN/Creatinine Ratio 13.0 10.0-20.0 Serum Glucose 88 74-106 mg/dL Calcium Level 9.1 8.7-10.4 mg/dL SEPSIS Sepsis Screen Date sepsis recognized/suspect: Dec 04, 2024 Time Sepsis recognized/suspect: 1899 Recent Procedure: No On Antibiotic Therapy: No Respiratory Rate >20: No Heart Rate >90: No Temp<36 C (96.8 F) or >38.3 C: No SBP <90 or MAP <65 mmHG: No New Acute Mental Status Change: No Is the patient on CPAP, BIPAP,: No Physician Orders Ct Ab Pel Wo Con-No Oral Or Iv (12/04/24 16:04) Small Bowel Series-W Gastrogra (12/05/24 08:00) Admit (12/04/24 23:29) Allergies (12/04/24 23:29) Code Status (12/04/24 23:29) Docusate Sodium Capsule (Colace Capsule) (12/04/24 23:30) Complete Blood Count (12/05/24 04:00) Comprehensive Metabolic Panel (12/05/24 04:00) Condition: Fair (12/04/24 23:29) Vital Signs Date Time Temp Pulse Resp B/P (MAP) Pulse Ox O2 Delivery O2 Flow Rate FiO2 12/04/24 19:41 77 16 145/70 12/04/24 18:58 98.1 77 20 145/70 (95) 99 98.1 12/04/24 18:58 77 20 99 Room Air Laboratory Tests Test 12/04/24 13:03 White Blood Count 7.0 10^3/uL (4.4-10.8) Medications Medications Dose Ordered Sig/George Route Start Time Stop Time Status Last Admin Dose Admin Hydromorphone HCl 0.5 mg ONCE ONCE IV 12/04/24 18:15 12/04/24 18:16 DC 12/04/24 19:41 0.5 MG Ondansetron HCl 4 mg ONCE ONCE IV 12/04/24 18:15 12/04/24 18:16 DC 12/04/24 19:42 4 MG Assessment/Plan Assessment/Plan Assessment and Plan # Intractable abdominal pain, possibly due to bladder prolapse, ? interstitial cystitis, ?stoma herniation - CT scan abdominal pelvis - Follow bladder ultrasound - To continue IV ketorolac PRN - UACOM, urine culture, awaiting results - NPO - Urology consult, # ? small bowel obstruction - Ct abd pelvis : There are no findings to suggest bowel obstruction. Further confirmation of this may be obtained with a small-bowel follow-through. - Small bowel follow-through -NPO --will consult surgery # ?stoma herniation -CT abd pelvis : Herniation of mesenteric fat and bowel as increased around the stoma into the subcutaneous tissues when compared to December 21, 2020 -will consult surgery # History of intestinal perforation on colostomy bag - Colostomy tube care # Bilateral lower limb edema R>L, rule out DVT - DVT ultrasound # History of fibromyalgia - Outpatient follow up with PCP # Anxiety disorder - Continue home medications # History of breast cancer status post mastectomy, in remission - Follow up with surgeon as outpatient on discharge # Rheumatoid arthritis, no acute flare up - Outpatient follow up with PCP PUD prophylaxis: protonix 40mg DVT prophylaxis: brisk movement. Barriers to discharge: Medical diagnosis and management in progress. Patient lives with family. Independent for ADL. PCP: Dr. Zarate Specialist relevant to admission: Dr. Nam, Urologist Case discussed with Dr. Shaikh. Code Status: Full Code. Complex patient care discussion needed. Spend total 37 minutes for bedside assessment, case discussion and management. Plan discussed with: Patient My Orders Orders - SANDEEP VASQUEZ RESIDENT Procedure Category Date Status Time Admit ADMIT 12/04/24 Transmitted 23:29 Allergies TIAGO 12/04/24 Transmitted 23:29 Code Status CODE 12/04/24 Transmitted 23:29 Docusate Sodium PHA 12/04/24 Logged Capsule (Colace 23:30 Complete Blood Count LAB 12/05/24 Verified 04:00 Comprehensive LAB 12/05/24 Verified Metabolic Panel 04:00 Condition: Fair TIAGO 12/04/24 Transmitted 23:29 Date of Service: Dec 04, 2024 Billing Provider: REANNA SHAIKH MD Common Visit Codes: 06560-EXDSEDA INP/OBS CARE (HIGH) Secondary Visit Codes: 68488-ISVNJKNV CARE PLAN 30 MINUTES SANDEEP VASQUEZ RESIDENT Dec 04, 2024 23:36 MARI ZHAO RESIDENT Dec 05, 2024 08:38
[2024-12-05] VITALS (8 sets, daily range): BP systolic 114–139; BP diastolic 63–91; PULSE 64–80; RESP 16–18; TEMP 97.6–98.4; O2SAT 92–97
[2024-12-05 00:46] LABS: COVID19 ANTIGEN SOFIA FIA NEGATIVE (NEGATIVE)
[2024-12-05] MEDS ORDERED: DULO20CA PO (03:22)
[2024-12-05] MEDS: KETOROLAC TROMETH 30 MG/ML 1ML VIAL IV ONE (03:31)
[2024-12-05] MEDS: PANTOPRAZOLE 40 MG/10 ML VIAL INJ IV ONE (03:31)
[2024-12-05] MEDS: SODIUM CHLORIDE 0.9% 1,000 ML IV SCH (03:37)
--- NOTE | 2024-12-05 07:51 | DVH ---
Bilateral lower extremity venous duplex Clinical History: lower limb swelling Comparison: None Technique: Duplex Doppler evaluation of the deep venous systems of both lower extremities from the common femora l veins to the popliteal veins including color Doppler and spectral/pulsed waveform analysis was perf ormed. Findings: RIGHT SIDE: The common femoral vein demonstrates appropriate compressibility and waveform variability. There is compressibility/patency of the great saphenous vein at the proximal thigh. The femoral vein demonstrates appropriate compressibility and waveform variability. The deep femoral vein demonstrates appropriate compressibility and waveform variability. The popliteal vein demonstrates appropriate compressibility and waveform variability. There is normal compressibility at the tibioperoneal trunk. LEFT SIDE: The common femoral vein demonstrates appropriate compressibility and waveform variability. There is compressibility/patency of the great saphenous vein at the proximal thigh. The femoral vein demonstrates appropriate compressibility and waveform variability. The deep femoral vein demonstrates appropriate compressibility and waveform variability. The popliteal vein demonstrates appropriate compressibility and waveform variability. There is normal compressibility at the tibioperoneal trunk. Impression: No right or left femoropopliteal venous thrombosis.
[2024-12-05] MEDS ORDERED: GASTROGRAFIN 120 ML SOL ONE (08:27)
--- NOTE | 2024-12-05 09:56 | DVH ---
Procedure: XY SMALL BOWEL SERIES-W GASTROGRA Reason for study/Clinical History: sbo Comparison Study: SMALL BOWEL SERIES-W GASTROGRA on DOS: 05/17/20 Technique: Single contrast small bowel series performed. FINDINGS/IMPRESSION: Initial aviation safety officer view of the abdomen and pelvis appears demonstrates no acute process. Contrast is identified within the colon by 30 minutes. This represents a normal small bowel transit time.
[2024-12-05] MEDS: CITALOPRAM HYDROBR 20 MG TAB PO SCH (10:06)
[2024-12-05 10:45] LABS: Anion Gap 9 (5-15)
[2024-12-05] MEDS: PANTOPRAZOLE 40 MG TAB PO SCH (10:45)
[2024-12-05 10:51] LABS: BUN/Creatinine Ratio 13.0 (10.0-20.0)
[2024-12-05 10:56] LABS: Alanine Aminotransferase 12 U/L (7-40); Albumin 4.3 g/dL (3.2-4.8); Alkaline Phosphatase 83 U/L (46-116); Bilirubin, Total 1.0 mg/dL (0.2-1.0); Blood Urea Nitrogen 9 mg/dL (9-23); Calcium 9.4 mg/dL (8.7-10.4); Carbon Dioxide 24 mmol/L (20-31); Chloride 110 mmol/L (98-107); Glucose 79 mg/dL (74-106); Potassium 4.4 mmol/L (3.5-5.1); Sodium 143 mmol/L (136-145); Total Protein 7.2 g/dL (5.7-8.2)
[2024-12-05 13:29] LABS: Hematocrit 38.7 % (36.0-46.0); Hemoglobin 12.9 g/dL (12.2-16.2); Mean Corpuscular Hemoglobin 29.8 pg (28.0-32.0); Mean Corpuscular Volume 89.4 fL (80.0-100.0); Nucleated Red Blood Cells % 0.1 %
[2024-12-05] MEDS: ENOXAPARIN SOD 40 MG/0.4 ML SYRINGE SC SCH (15:49)
--- NOTE | 2024-12-05 16:01 | DVHPNRES ---
Progress Note Date Seen: Dec 05, 2024 Resident Creating Document: JOE ROSE RESIDENT Medical Necessity Reason Pt with a Central, PICC or Fol: No Subjective Review of Systems Patient is 59 years old female with a past medical history of rheumatoid arthritis, breast carcinoma, status post right mastectomy, history of diverticulitis, intestinal perforation, status post colostomy, fibromyalgia, anxiety, GERD came with a complaint of lower abdominal pain. As per patient she has been having abdominal pain for 6 years due to prolapsed urinary bladder through vagina which was getting worse over last 1 week but yesterday was worse, severe pain, pressure-like, constant, Pain was radiating to the vagina and rectum. Patient also endorsed bilateral leg swelling when she uses trending for a while. As per patient she was supposed to follow up with the neurologist Dr. Nam But did not get an appointment yet. CT abdomen and pelvis revealed- Stoma left lower anterior abdominal wall. Herniation of mesenteric fat and bowel as increased around the stoma into the subcutaneous tissues. Doppler Of the lower extremity negative for DVT. Small-bowel series with Gastrographin - Initial ferryboat deckhand view of the abdomen and pelvis appears demonstrates no acute process. Ultrasound of the bladder reports was nonsignificant. Pelvic ultrasound revealed- Hysterectomy.Nonvisualization of the ovaries, which may be surgically absent or obscured by overlying bowel gas. PMH-rheumatoid arthritis, breast carcinoma, status post right mastectomy, history of diverticulitis, intestinal perforation, status post colostomy, fibromyalgia, anxiety, GERD PSH- cholecystectomy, mastectomy, hysterectomy, tonsillectomy Allergy- codeine, metronidazole, more Personal History/ Social History- denies smoking/alcoholism/drug abuse, lives with the mother endorsed Cardiovascular- deny acute chest pain or shortness of breath or cough or palpitation Respiratory denies cough or short of breath or wheezing Gastrointestinal- nausea or vomiting Musculoskeletal-denies acute joint swelling or tenderness or redness Neurological- denies acute dysarthria, dysphagia, change in vision Psychiatry- denies depression or SI or HI Skin- denies acute rash or purpura Patient was seen today at bedside, labs and chart reviewed. Patient has a colostomy bag, patient reported ongoing lower abdominal pain. Denied any dysuria or fever. CT abdomen and pelvis revealed- Stoma left lower anterior abdominal wall. Herniation of mesenteric fat and bowel as increased around the stoma into the subcutaneous tissues. Doppler Of the lower extremity negative for DVT. Small-bowel series with Castrographin - Initial ferryboat deckhand view of the abdomen and pelvis appears demonstrates no acute process. Pending report for ultrasound of the bladder. Provider spoke to [facility] Isabell Chacko, recommended outpatient follow up with urology. Pelvic ultrasound revealed- Hysterectomy.Nonvisualization of the ovaries, which may be surgically absent or obscured by overlying bowel gas. Objective vital signs Vital Sign Date Time Temp Pulse Resp B/P (MAP) Pulse Ox O2 Delivery O2 Flow Rate FiO2 12/05/24 13:00 97.9 69 17 115/91 (99) 96 97.9 12/05/24 08:15 Room Air* 0 21 Total Intake and Output 12/04/24 12/04/24 12/05/24 15:00 23:00 07:00 Intake Total 425 ml Balance 425 ml medications Current Medications Medications Dose Ordered Sig/George Route Start Time Stop Time Status Last Admin Dose Admin Docusate Sodium 100 mg BIDPRN PRN PO 12/04/24 23:30 Ketorolac Tromethamine 15 mg Q6HPRN PRN IV 12/05/24 02:15 12/10/24 02:14 Sodium Chloride 1,000 ml @ 75 mls/hr [id number] IV 12/05/24 02:30 12/05/24 15:49 75 MLS/HR Citalopram Hydrobromide 20 mg DAILY PO 12/05/24 10:00 12/05/24 10:06 20 MG Enoxaparin Sodium 40 mg DAILY SC 12/05/24 10:45 12/05/24 15:49 40 MG Pantoprazole Sodium 40 mg DAILY@0600 PO 12/05/24 10:45 Examination General examination- awake, alert, oriented HEENT- PEERLA, no acute nasal discharge Cardiovascular- S1-S2 audible, rate and rhythm regular, no murmur Respiratory- CTAB, no wheeze or rhonchi Gastrointestinal-nontender, bowel sound+. Nondistended, colostomy bag present Musculoskeletal-no acute joint swelling or tenderness or redness Lower extremity- no leg edema Neurological- cranial nerves intact, no acute dysarthria or dysphagia Psychiatry- denies depression or SI or HI Skin- no acute rash or purpura laboratory and microbiology Laboratory Tests 12/05/24 13:16 12/05/24 09:33 Test 12/05/24 09:33 Range/Units Serum Glucose 79 74-106 mg/dL Microbiology Date/Time Source Procedure Growth Status 12/05/24 03:45 Nose MRSA Screen - Final Complete Problem List/Assessment/Plan Problem List/Assessment/Plan Assessment and plan Intractable lower abdominal pain, rule out acute cystitis/diverticulitis/ovarian ruptured cyst/ovarian twisting # history of urinary bladder prolapse -CT abdomen and pelvis revealed- Stoma left lower anterior abdominal wall. Herniation of mesenteric fat and bowel as increased around the stoma into the subcutaneous tissues. Small-bowel series with Castrographin - Initial ferryboat deckhand view of the abdomen and pelvis appears demonstrates no acute process. -ultrasound of the bladder -nonsignificant - Pelvic ultrasound revealed- Hysterectomy.Nonvisualization of the ovaries, which may be surgically absent or obscured by overlying bowel gas. -Urology consult-spoke to [facility] Elis Chacko, recommended outpatient follow up, catheterization if retention of urine. # bilateral leg edema likely due to orthostasis due to prolonged standing at work - Doppler Of the lower extremity negative for DVT. -leg elevation during sleeping # # rheumatoid arthritis -continue current conservative management # history of intestinal perfusion due to diverticulitis, on colostomy bag -continue current conservative management # fibromyalgia # anxiety -continue current pantoprazole management # GERD -continue pantoprazole as prescribed Goals of care, Code status ; discussed with >15 minutes PUD prophylaxis: Lovenox DVT prophylaxis: Pantoprazole Plan discussed with Dr. Nelson , nursing staff, Total time spent on patient evaluation, chart review, assessment and plan, discussion discussion >35 minutes Plan discussed with: Patient, Other (RN) My Orders My Orders Orders - JOE ROSE Procedure Category Date Status Time Enoxaparin Sodium PHA 12/05/24 In Process (Lovenox) 10:45 Pantoprazole Tablet PHA 12/05/24 In Process (Protonix Tablet) 10:45 JOE ROSE Dec 05, 2024 16:01
[2024-12-05 17:09] LABS: Potassium 4.2 mmol/L (3.5-5.1); Sodium 143 mmol/L (136-145)
[2024-12-05 17:10] LABS: Anion Gap 9 (5-15); Calcium 8.8 mg/dL (8.7-10.4); Carbon Dioxide 23 mmol/L (20-31); Chloride 111 mmol/L (98-107)
[2024-12-05 17:15] LABS: BUN/Creatinine Ratio 25.4 (10.0-20.0); Blood Urea Nitrogen 16 mg/dL (9-23); Glucose 81 mg/dL (74-106)
--- NOTE | 2024-12-05 17:22 | DVH ---
EXAM: US BLADDER DATE OF SERVICE: 12/05/2024 07:23 AM ORDERING PHYSICIAN: SANDEEP VASQUEZ RESIDENT REASON FOR EXAM: bladder prolapse TECHNIQUE: Sonographic imaging of the bladder was acquired. COMPARISON: None FINDINGS: The prevoid bladder volume is 163 ml. The patient stated she did not need to avoid. No sto ne or intraluminal mass is seen. The bilateral ureteral jets were not visualized IMPRESSION: Prevoid bladder volume = 163 mild. Patient stated she did not need to void. Bilateral ureteral jets not visualized. End of Report
[2024-12-05] MEDS: HYDROcodone-ACET 5/325MG TAB PO PRN (18:03)
--- NOTE | 2024-12-05 20:32 | DVH ---
CLINICAL HISTORY: Lower abdominal pain TECHNIQUE: Ultrasound examination of the female pelvis was performed transabdominal. Transvaginal ult rasound was performed to more optimally assess the endometrial cavity. COMPARISON: US BLADDER on DOS: 12/05/24, CT ABD PELVIS WO CONTRAST on DOS: 12/21/20, CT ABD PELVIS WO CO NTRAST on DOS: 05/16/20 FINDINGS: The uterus is absent. The origin are not seen. There is no abnormal soft tissue thickening or mass le manjula within the surgical bed. No fluid collection is evident. IMPRESSION: Hysterectomy. Nonvisualization of the ovaries, which may be surgically absent or obscured by overlying bowel gas.
[2024-12-05] MEDS: KETOROLAC TROMETH 30 MG/ML 1ML VIAL IV PRN (22:05)
[2024-12-06 01:00] VITALS: BP 115/70; PULSE 64; RESP 17; TEMP 98.3; O2SAT 96
[2024-12-06 05:00] VITALS: BP_SYST 117; BP_SYST 97; BP_DIAS 50; PULSE 60; RESP 16; TEMP 98.2; O2SAT 93
[2024-12-06] MEDS: SODIUM CHLORIDE 0.9% 1,000 ML IV ONE (08:15)
[2024-12-06 09:00] VITALS: BP 106/64; PULSE 63; RESP 17; TEMP 98.2; O2SAT 96
[2024-12-06] MEDS ORDERED: PANTOPRAZOLE 40 MG/10 ML VIAL INJ IV SCH (10:00)
[2024-12-06 10:22] LABS: Potassium 4.2 mmol/L (3.5-5.1); Sodium 140 mmol/L (136-145)
[2024-12-06 10:23] LABS: Carbon Dioxide 21 mmol/L (20-31)
[2024-12-06 10:24] LABS: Anion Gap 9 (5-15); Calcium 8.7 mg/dL (8.7-10.4); Chloride 110 mmol/L (98-107)
[2024-12-06 10:29] LABS: BUN/Creatinine Ratio 12.5 (10.0-20.0); Blood Urea Nitrogen 8 mg/dL (9-23); Glucose 127 mg/dL (74-106)
--- NOTE | 2024-12-06 11:45 | DVHDSRES ---
Discharge Summary Date of Admission Resident Creating Document: JOE ROSE RESIDENT Dec 04, 2024 at 23:29 Date of Discharge: Dec 06, 2024 Admitting Diagnosis Intractable lower abdominal pain Labs/Diagnostic Data: Laboratory Results Test 12/06/24 09:29 12/05/24 13:16 12/05/24 11:52 12/05/24 09:33 Sodium Level 140 mmol/L (136-145) Potassium Level 4.2 mmol/L (3.5-5.1) Chloride Level 110 mmol/L (98-107) Carbon Dioxide Level 21 mmol/L (20-31) Anion Gap 9 (5-15) Blood Urea Nitrogen 8 mg/dL (9-23) Creatinine 0.64 mg/dL (0.550-1.02) Glomerular Filtration Rate Calc 101 mL/min (>90) BUN/Creatinine Ratio 12.5 (10.0-20.0) Serum Glucose 127 mg/dL (74-106) Calcium Level 8.7 mg/dL (8.7-10.4) White Blood Count 6.5 10^3/uL (4.4-10.8) Red Blood Count 4.32 10^6/uL (4.0-5.20) Hemoglobin 12.9 g/dL (12.2-16.2) Hematocrit 38.7 % (36.0-46.0) Mean Corpuscular Volume 89.4 fL (80.0-100.0) Mean Corpuscular Hemoglobin 29.8 pg (28.0-32.0) Mean Corpuscular Hemoglobin Concent 33.4 g/dL (32.0-36.0) Red Cell Distribution Width 13.9 % (11.8-14.3) Platelet Count 164 10^3/uL (140-450) Mean Platelet Volume 9.4 fL (6.9-10.8) Neutrophils (%) (Auto) 62.4 % (37.0-80.0) Lymphocytes (%) (Auto) 26.3 % (10.0-50.0) Monocytes (%) (Auto) 8.1 % (0.0-12.0) Eosinophils (%) (Auto) 2.1 % (0.0-7.0) Basophils (%) (Auto) 1.1 % (0.0-2.0) Neutrophils # (Auto) 4.1 10 ^3/uL (1.6-8.6) Lymphocytes # (Auto) 1.7 10 ^3/uL (0.4-5.4) Monocytes # (Auto) 0.5 10 ^3/uL (0-1.3) Eosinophils # (Auto) 0.1 10 ^3/uL (0-0.8) Basophils # (Auto) 0.1 10 ^3/uL (0-0.2) Nucleated Red Blood Cells 0.1 % Hemoglobin A1c 5.4 % A1C (<5.7) Lactic Acid Level 1.9 mmol/L (0.4-2.0) Total Bilirubin 1.0 mg/dL (0.2-1.0) Aspartate Amino Transferase (AST) 22 U/L (13-40) Alanine Aminotransferase (ALT) 12 U/L (7-40) Alkaline Phosphatase 83 U/L (46-116) Total Protein 7.2 g/dL (5.7-8.2) Albumin 4.3 g/dL (3.2-4.8) Lipase 32 U/L (12-53) Vitamin B12 Level 393 pg/mL (211-911) Vitamin D 25-Hydroxy 26.3 ng/mL (30.0-100) Folic Acid 17.94 ng/mL (>5.38) Thyroid Stimulating Hormone (TSH) 2.63 uIU/mL (0.55-4.78) Test 12/04/24 23:57 12/04/24 14:25 Influenza Type A Antigen Negative (Negative) Influenza Type B Antigen Negative (Negative) SARS-CoV-2 Antigen (Rapid) Negative (NEGATIVE) Urine Color Yellow (Yellow) Urine Clarity Hazy (Clear) Urine pH 6.0 (5.0-9.0) Urine Specific [place] 1.024 (1.001-1.035) Urine Protein Negative (Negative) Urine Ketones Negative (Negative) Urine Blood Negative /uL (Negative) Urine Nitrite Negative (Negative) Urine Bilirubin Negative (Negative) Urine Urobilinogen Normal mg/dL (Negative) Urine Leukocyte Esterase Negative /uL (Negative) Urine RBC 1 /hpf (0 - 4) Urine Microscopic WBC 3 /HPF (0-5) Urine Squamous Epithelial Cells Mod /hpf (<5) Urine Bacteria Few /hpf (None Seen) Urine Glucose Normal mg/dL (Normal) Other Laboratory Tests 12/06/24 09:29 12/05/24 13:16 Brief Hx & Hospital Course: Patient is 59 years old female with a past medical history of rheumatoid arthritis, breast carcinoma, status post right mastectomy, history of diverticulitis, intestinal perforation, status post colostomy, fibromyalgia, anxiety, GERD came with a complaint of lower abdominal pain. As per patient she has been having abdominal pain for 6 years due to prolapsed urinary bladder through vagina which was getting worse over last 1 week but yesterday was worse, severe pain, pressure-like, constant, Pain was radiating to the vagina and rectum. Patient also endorsed bilateral leg swelling when she uses trending for a while. As per patient she was supposed to follow up with the neurologist Dr. Nam But did not get an appointment yet. CT abdomen and pelvis revealed- Stoma left lower anterior abdominal wall. Herniation of mesenteric fat and bowel as increased around the stoma into the subcutaneous tissues. Doppler Of the lower extremity negative for DVT. Small-bowel series with Gastrographin - Initial vascular sonographer view of the abdomen and pelvis appears demonstrates no acute process. Ultrasound of the bladder reports was nonsignificant. Pelvic ultrasound revealed- Hysterectomy.Nonvisualization of the ovaries, which may be surgically absent or obscured by overlying bowel gas. Transvaginal ultrasound revealed-Prior hysterectomy. The ovaries are not visualized, correlate if there has been prior oophorectomy. No mass or fluid collection. Hospital course-during hospital course patient was treated conservatively. Transplant ultrasound negative for acute pathology. Palpitation ultrasound read negative for acute pathology. Bowel series negative for acute intestinal obstruction. Patient's history of urinary bladder prolapse. Patient was seen by behavioral interventionist, recommended for outpatient follow up. Patient is being discharged with the advice to follow up with the primary care physician in 1-2 weeks and also to follow up with the behavioral interventionist Dr. Mujica in 1-2 weeks for evaluation of possible urinary bladder prolapse. Patient Was also advised to follow up with the urologist Dr. Nam for possible urinary bladder prolapse for further evaluation and care. Patient was hemodynamically stable on discharge. Assessment and plan #Suspected acute interstitial cystitis #Intractable lower abdominal pain likely due to acute interstitial cystitis --ruled out acute diverticulitis -ruled out acute colitis -ruled out acute ovarian torsion # suspected of urinary bladder prolapse # bilateral leg edema likely due to orthostasis due to prolonged standing at work # # rheumatoid arthritis # history of intestinal perfusion due to diverticulitis, on colostomy bag # fibromyalgia # anxiety # GERD Plan Please resume home medications Please follow up with the primary care physician in one week Please follow up with urologist Dr. Nam in 1-2 weeks for further evaluation and care of suspected urinary bladder prolapse Please follow up with the Dr. Mujica Gynecology and core dropper in 1-2 weeks for further evaluation and care of suspected urinary bladder Operations or Procedures [place] [address] Ph: [phone] DIAGNOSTIC IMAGING Diagnostic Imaging Report : [id number] Signed PATIENT: SILVESTRE JIMENEZ ACCT: [id number] UNIT: [id number] : 1965 LOC: CENTRAL ROOM / BED: 0216 / B AGE / SEX: 59 / F ADM STATUS: ADM IN SERVICE 1521 ORDERING PHYSICIAN: SOILA MUJICA DO PROCEDURE(s): PELTR - TRANSVAGINAL US NON OB REASON: PELVIC/VAGINAL MASS? ORDER NUMBER(s): [id number], ACCESSION NUMBER(s): [id number] TRANSVAGINAL PELVIC ULTRASOUND CLINICAL HISTORY: PELVIC/VAGINAL MASS TECHNIQUE: Multiple grayscale ultrasound images were obtained of the pelvis via transvaginal approach. Limited color Doppler and spectral Doppler acquisitions were also obtained. COMPARISON: US PELVIC on DOS: 12/05/24 FINDINGS /impression: Prior hysterectomy. The ovaries are not visualized, correlate if there has been prior oophorectomy. No mass or fluid collection. Peristalsing bowel In the pelvis. ATED BY: VAMSI URBINA MD DICTATED DATE/TIME: 12/06/241704 SIGNED BY: VAMSI URBINA MD SIGNED DATE/TIME: 12/06/241704 CC: [place] [address] Ph: [phone] DIAGNOSTIC IMAGING Diagnostic Imaging Report : [id number] Signed PATIENT: SILVESTRE JIMENEZ ACCT: [id number] UNIT: [id number] : 1965 LOC: CENTRAL ROOM / BED: [facility] / B AGE / SEX: 59 / F ADM STATUS: ADM IN SERVICE 1718 ORDERING PHYSICIAN: JOE ROSE PROCEDURE(s): PELUS - PELVIC REASON: Lower abdominal pain ORDER NUMBER(s): [id number], ACCESSION NUMBER(s): [id number] CLINICAL HISTORY: Lower abdominal pain TECHNIQUE: Ultrasound examination of the female pelvis was performed transabdominal. Transvaginal ultrasound was performed to more optimally assess the endometrial cavity. COMPARISON: US BLADDER on DOS: 12/05/24, CT ABD PELVIS WO CONTRAST on DOS: 12/21/20, CT ABD PELVIS WO CONTRAST on DOS: 05/16/20 FINDINGS: The uterus is absent. The origin are not seen. There is no abnormal soft tissue thickening or mass lesion within the surgical bed. No fluid collection is evident. IMPRESSION: Hysterectomy. Nonvisualization of the ovaries, which may be surgically absent or obscured by overlying bowel gas. ATED BY: KIRBY STERLING MD DICTATED DATE/TIME: 12/05/242029 SIGNED BY: KIRBY STERLING MD SIGNED DATE/TIME: 12/05/242029 CC: [place] [address] Ph: [phone] DIAGNOSTIC IMAGING Diagnostic Imaging Report : [id number] Signed PATIENT: SILVESTRE JIMENEZ ACCT: [id number] UNIT: [id number] : 1965 LOC: CENTRAL ROOM / BED: [address] [place] [address] AGE / SEX: 59 / F ADM STATUS: ADM IN SERVICE 0800 ORDERING PHYSICIAN: YESSI COHEN MD PROCEDURE(s): SMBG - SMALL BOWEL SERIES-W GASTROGRA REASON: sbo ORDER NUMBER(s): [id number], ACCESSION NUMBER(s): [id number] Procedure: XY SMALL BOWEL SERIES-W GASTROGRA Reason for study/Clinical History: sbo Comparison Study: SMALL BOWEL SERIES-W GASTROGRA on DOS: 05/17/20 Technique: Single contrast small bowel series performed. FINDINGS/IMPRESSION: Initial vascular sonographer view of the abdomen and pelvis appears demonstrates no acute process. Contrast is identified within the colon by 30 minutes. This represents a normal small bowel transit time. ATED BY: DAYNE BENSON MD DICTATED DATE/TIME: 12/05/24 0954 SIGNED BY: DAYNE BENSON MD SIGNED DATE/TIME: 12/05/24 0954 CC: [place] [address] Ph: [phone] DIAGNOSTIC IMAGING Diagnostic Imaging Report : [id number] Signed PATIENT: SILVESTRE JIMENEZ ACCT: [id number] UNIT: [id number] : 1965 LOC: CENTRAL ROOM / BED: [address] [place] [address] AGE / SEX: 59 / F ADM STATUS: ADM IN SERVICE 7 ORDERING PHYSICIAN: SANDEEP VASQUEZ PROCEDURE(s): BLDR - BLADDER REASON: bladder prolapse ORDER NUMBER(s): [id number], ACCESSION NUMBER(s): [id number] EXAM: US BLADDER DATE OF SERVICE: 12/05/2024 07:23 AM ORDERING PHYSICIAN: SANDEEP VASQUEZ REASON FOR EXAM: bladder prolapse TECHNIQUE: Sonographic imaging of the bladder was acquired. COMPARISON: None FINDINGS: The prevoid bladder volume is 163 ml. The patient stated she did not need to avoid. No stone or intraluminal mass is seen. The bilateral ureteral jets were not visualized IMPRESSION: Prevoid bladder volume = 163 mild. Patient stated she did not need to void. Bilateral ureteral jets not visualized. End of Report ATED BY: KIRBY STERLING MD DICTATED DATE/TIME: 12/05/24 172 SIGNED BY: KIRBY STERLING MD SIGNED DATE/TIME: 12/05/24 172 CC: [place] [address] Ph: [phone] DIAGNOSTIC IMAGING Diagnostic Imaging Report : [id number] Signed PATIENT: SILVESTRE JIMENEZ ACCT: [id number] UNIT: [id number] : 1965 LOC: CENTRAL ROOM / BED: 0216 / B AGE / SEX: 59 / F ADM STATUS: ADM IN SERVICE ORDERING PHYSICIAN: SANDEEP VASQUEZ PROCEDURE(s): BLDVT - BiLat Lower DVT REASON: lower limb swelling ORDER NUMBER(s): [id number], ACCESSION NUMBER(s): [id number] Bilateral lower extremity venous duplex Clinical History: lower limb swelling Comparison: None Technique: Duplex Doppler evaluation of the deep venous systems of both lower extremities from the common femoral veins to the popliteal veins including color Doppler and spectral/pulsed waveform analysis was performed. Findings: RIGHT SIDE: The common femoral vein demonstrates appropriate compressibility and waveform variability. There is compressibility/patency of the great saphenous vein at the proximal thigh. The femoral vein demonstrates appropriate compressibility and waveform variability. The deep femoral vein demonstrates appropriate compressibility and waveform variability. The popliteal vein demonstrates appropriate compressibility and waveform variability. There is normal compressibility at the tibioperoneal trunk. LEFT SIDE: The common femoral vein demonstrates appropriate compressibility and waveform variability. There is compressibility/patency of the great saphenous vein at the proximal thigh. The femoral vein demonstrates appropriate compressibility and waveform variability. The deep femoral vein demonstrates appropriate compressibility and waveform variability. The popliteal vein demonstrates appropriate compressibility and waveform variability. There is normal compressibility at the tibioperoneal trunk. Impression: No right or left femoropopliteal venous thrombosis. ATED BY: DAYNE BENSON MD DICTATED DATE/TIME: 12/05/24748 SIGNED BY: DAYNE BENSON MD SIGNED DATE/TIME: 12/05/24748 CC: [place] [address] Ph: [phone] DIAGNOSTIC IMAGING Diagnostic Imaging Report : [id number] Signed PATIENT: SILVESTRE JIMENEZ ACCT: [id number] UNIT: [id number] : 1965 LOC: ER ROOM / BED: / AGE / SEX: 59 / F ADM STATUS: REG ER SERVICE 1604 ORDERING PHYSICIAN: YESSI COHEN MD PROCEDURE(s): ABPL - CT AB PEL WO CON-NO ORAL OR IV REASON: colitis ORDER NUMBER(s): [id number], ACCESSION NUMBER(s): [id number] Exam: CT CT AB PEL WO CON-NO ORAL OR IV History: colitis Comparison Study: CT ABD PELVIS WO CONTRAST on DOS: 12/21/20, CT ABD PELVIS WO CONTRAST on DOS: 05/16/20 TECHNIQUE: Multidetector CT of the abdomen was performed from lung bases to pubic symphysis. Imaging was performed without IV contrast. Axial, coronal and sagittal multiplanar reformats were obtained from the axial data set by the technologist. Radiation Dose Information: CT Dose: CTDI volume is 20.82 mGy. Dose-length product is 980.33 mGy*cm FINDINGS: Evaluation of solid organs is limited due to lack of intravenous contrast use. Findings: Lung Bases: No acute or significant lung base finding. Normal heart size. No pleural or pericardial effusion. Liver: The liver is normal in size. No focal lesions. Gallbladder and Biliary Tree: Gallbladder has been surgically removed. Spleen: Unremarkable Pancreas: The pancreas is grossly normal in appearance. Adrenal Glands: Unremarkable Kidneys: Kidneys are grossly normal without calculi or hydronephrosis. Bladder: Grossly unremarkable for degree of distention. Bowel: The stomach is grossly normal in appearance. Small bowel and colon are normal in caliber and distribution. The appendix is not visualized; however, no secondary findings of acute appendicitis identified. Ascites: Absent Lymphadenopathy: No mesenteric, retroperitoneal or periportal lymphadenopathy. Abdominal Wall and Mesentery: Stoma is noted in the lower left anterior abdominal wall with peristomal herniation of mesenteric fat and bowel measuring 14.4 cm in transverse dimension and 6.3 cm in AP dimension. There are no abnormally dilated bowel loops or thickened bowel wall. Correlate clinically for emptying of the stoma May suggest c or obstruction. There are no CT findings to suggest bowel obstruction at this time. Current study is compared with the previous study of 12/21/2020. There are no prior reports for comparison. There appears to have been increased herniation of bowel and mesenteric fat in the left lower abdomen when compared to 12/21/2020. Cranial caudal length of the herniation currently measures proximally 13 cm. On the previous study of 2020 it measured 9 cm. Vasculature: The visualized abdominal aorta is normal in size and caliber. Evaluation of abdominal and pelvic vessels is limited due to lack of intravenous contrast. Pelvic Organs: Unremarkable Musculoskeletal: No aggressive focal bony lesions, acute fractures or dislocation. Soft tissues: Unremarkable IMPRESSION: 1. Stoma left lower anterior abdominal wall. 2. Herniation of mesenteric fat and bowel as increased around the stoma into the subcutaneous tissues when compared to December 21, 2020. 3. There are no findings to suggest bowel obstruction. Further confirmation of this may be obtained with a small-bowel follow-through. Radiation optimization: All CT scans at this facility use at least one of these dose optimization techniques: automated exposure control mA and/or kV adjustment per patient size (includes targeted exams where dose is matched to clinical indication) or iterative reconstruction. ATED BY: JAMES MANZANO Jr., DO DICTATED DATE/TIME: 12/04/241738 SIGNED BY: JAMES MANZANO Jr., SIGNED DATE/TIME: 12/04/241738 CC: Condition at Discharge: Stable Final Diagnosis/Problems List #acute interstitial cystitis, probable #Intractable lower abdominal pain likely due to above --ruled out acute diverticulitis -ruled out acute colitis -ruled out acute ovarian torsion # suspected of urinary bladder prolapse # bilateral leg edema likely due to orthostasis due to prolonged standing at work # # rheumatoid arthritis # history of intestinal perfusion due to diverticulitis, on colostomy bag # fibromyalgia # anxiety # GERD Discharge Disposition: Home Discharge Instruct/Medications Scheduled Duloxetine Hcl (Cymbalta), 1 CAP PO DAILY, (Reported) Scheduled PRN Hydrocodone-Acetaminophen (Hydrocodone Bitartrate/AC 5-325 mg), 1 TAB PO QIDP PRN Discharge Statement: "Patient was advised to return to the ER or call 911 if any headaches, dizziness, shortness of breath, chest pain, abdominal pain, bleeding, fevers, or worsening of medical condition. Patient was counseled about treatment plan, medications, possible side effects, patientverbalized understanding. All questions were answered to the best of my ability. This discharge took greater then 30 minutes in planning, reviewing documentation, counseling the patient, and discussing with other team members." ASSESSMENT ASSESSMENT Assessment Date of Service: Dec 06, 2024 Billing Provider: DG RAMÍREZ MD Common Visit Codes: 50359-FRT/OBS DISCH DAY >30min BABU,MOHAMMED RESIDENT Dec 06, 2024 11:45 DG RAMÍREZ MD Dec 07, 2024 17:08
[2024-12-06 13:00] VITALS: BP 114/72; PULSE 64; RESP 19; TEMP 98.1; O2SAT 94
[2024-12-06] MEDS ORDERED: HYDR-4902 PO (13:35)
[2024-12-06 15:48] VITALS: TEMP 36.7
[2024-12-06 17:00] VITALS: BP 136/80; PULSE 66; RESP 18; TEMP 98.3; O2SAT 94
--- NOTE | 2024-12-06 17:07 | DVH ---
TRANSVAGINAL PELVIC ULTRASOUND CLINICAL HISTORY: PELVIC/VAGINAL MASS TECHNIQUE: Multiple grayscale ultrasound images were obtained of the pelvis via transvaginal approac h. Limited color Doppler and spectral Doppler acquisitions were also obtained. COMPARISON: US PELVIC on DOS: 12/05/24 FINDINGS /impression: Prior hysterectomy. The ovaries are not visualized, correlate if there has been prior oophorectomy. No mass or fluid collection. Peristalsing bowel In the pelvis.
--- NOTE | 2024-12-07 16:50 | DVHINCON2 ---
Date of service: Dec 06, 2024 Referring Physician hospitalist Reason for Consultation vaginal pain History of Present Illness pt is admitted for acute abd [place] ,some vag pain and has hx of diverticular ds . pelvic sono reveals no vag mass ,absent uterus and ovaries.last pap yrs ago . pt also c/o possible urinary prolapse Past Medical History gerd,anxiety,RA,DIVERTICULAR DS Past Surgical History COLOSTOMY,R BREAST MASTECTOMY Family History NA Social History Patient Family History: Cardiovascular disease Hypertension Allergies: Coded Allergies: Morphine (Unverified Allergy, Intermediate, 09/14/19) PATIENT STATES SHE HAD SEVERVE ABDOMINAL PAIN AND NAUSEA WHEN MEDICATION WAS ADMINISTERED IN THE ED Codeine (Unverified Allergy, Unknown, NAUSEA, 09/29/17) Metronidazole (Verified Allergy, Unknown, 10/21/19) Home Meds Active Scripts Hydrocodone-Acetaminophen (Hydrocodone Bitartrate/AC 5-325 mg) 1 Tab Tab, 1 TAB PO QIDP PRN for 7 Days, #28 TAB 0 Refills Prov:DG RAMÍREZ MD 12/06/24 Reported Medications Duloxetine Hcl (Cymbalta) 20 Mg Cap, 1 CAP PO DAILY, #30 CAP 2 Refills 12/05/24 Review of Systems Constitutional: no fever, chill, weight loss HEENT: no eye pain, no hearing loss, no oral lesion, no scleral icterus Heart: no chest pain, no chest pressure Lung: no cough, no dyspnea with exertion Abdomen: see HPI : no pain with urination, normal appearing urine Musculoskeletal: no joint pain, no muscle pain Neurological: no seizure, no loss of sensation, no weakness in extremities Pysch: no depression, no anxiety Derm: no rash, no jaundice Vital Signs Vital Signs Date Time Temp Pulse Resp B/P (MAP) Pulse Ox O2 Delivery O2 Flow Rate FiO2 12/06/24 17:00 98.3 66 18 136/80 (98) 94 98.3 12/06/24 07:55 Room Air* 0 21 Physical Exam SKIN: [NL] HEENT: [NL NECK: [NL] CARDIAC: [RRR] PULMONARY: [CTA] ABDOMEN: SOFT,NT PELVIC- VAG ATROPHIC ,CX /UTERUS ABSENT BREASTS ABSENT BILST Labs/Diagnostic Data Labs Test 12/06/24 09:29 12/05/24 13:16 12/05/24 11:52 12/05/24 09:33 Range/Units Sodium Level 140 136-145 mmol/L Potassium Level 4.2 3.5-5.1 mmol/L Chloride Level 110 H 98-107 mmol/L Carbon Dioxide Level 21 20-31 mmol/L Anion Gap 9 5-15 Blood Urea Nitrogen 8 L 9-23 mg/dL Creatinine 0.64 0.550-1.02 mg/dL Glomerular Filtration Rate Calc 101 >90 mL/min BUN/Creatinine Ratio 12.5 10.0-20.0 Serum Glucose 127 H 74-106 mg/dL Calcium Level 8.7 8.7-10.4 mg/dL White Blood Count 6.5 4.4-10.8 10^3/uL Red Blood Count 4.32 4.0-5.20 10^6/uL Hemoglobin 12.9 12.2-16.2 g/dL Hematocrit 38.7 36.0-46.0 % Mean Corpuscular Volume 89.4 80.0-100.0 fL Mean Corpuscular Hemoglobin 29.8 28.0-32.0 pg Mean Corpuscular Hemoglobin Concent 33.4 32.0-36.0 g/dL Red Cell Distribution Width 13.9 11.8-14.3 % Platelet Count 164 140-450 10^3/uL Mean Platelet Volume 9.4 6.9-10.8 fL Neutrophils (%) (Auto) 62.4 37.0-80.0 % Lymphocytes (%) (Auto) 26.3 10.0-50.0 % Monocytes (%) (Auto) 8.1 0.0-12.0 % Eosinophils (%) (Auto) 2.1 0.0-7.0 % Basophils (%) (Auto) 1.1 0.0-2.0 % Neutrophils # (Auto) 4.1 1.6-8.6 10 ^3/uL Lymphocytes # (Auto) 1.7 0.4-5.4 10 ^3/uL Monocytes # (Auto) 0.5 0-1.3 10 ^3/uL Eosinophils # (Auto) 0.1 0-0.8 10 ^3/uL Basophils # (Auto) 0.1 0-0.2 10 ^3/uL Nucleated Red Blood Cells 0.1 % Hemoglobin A1c 5.4 <5.7 % A1C Lactic Acid Level 1.9 0.4-2.0 mmol/L Total Bilirubin 1.0 0.2-1.0 mg/dL Aspartate Amino Transferase (AST) 22 13-40 U/L Alanine Aminotransferase (ALT) 12 7-40 U/L Alkaline Phosphatase 83 46-116 U/L Total Protein 7.2 5.7-8.2 g/dL Albumin 4.3 3.2-4.8 g/dL Lipase 32 12-53 U/L Vitamin B12 Level 393 211-911 pg/mL Vitamin D 25-Hydroxy 26.3 L 30.0-100 ng/mL Folic Acid 17.94 >5.38 ng/mL Thyroid Stimulating Hormone (TSH) 2.63 0.55-4.78 uIU/mL Test 12/04/24 23:57 12/04/24 14:25 Range/Units Influenza Type A Antigen Negative Negative Influenza Type B Antigen Negative Negative SARS-CoV-2 Antigen (Rapid) Negative NEGATIVE Urine Color Yellow Yellow Urine Clarity Hazy H Clear Urine pH 6.0 5.0-9.0 Urine Specific [place] 1.024 1.001-1.035 Urine Protein Negative Negative Urine Ketones Negative Negative Urine Blood Negative Negative /uL Urine Nitrite Negative Negative Urine Bilirubin Negative Negative Urine Urobilinogen Normal Negative mg/dL Urine Leukocyte Esterase Negative Negative /uL Urine RBC 1 0 - 4 /hpf Urine Microscopic WBC 3 0-5 /HPF Urine Squamous Epithelial Cells Mod <5 /hpf Urine Bacteria Few H None Seen /hpf Urine Glucose Normal Normal mg/dL Microbiology Date/Time Source Procedure Growth Status 12/05/24 14:26 Voided Urine Urine Culture - Preliminary Resulted 12/05/24 03:45 Nose MRSA Screen - Final Complete Primary Diagnosis ABD PAIN IMPROVING ATROPHIC VAGINITIS Plan FU OUTPT FOR PAP AND EVAL OF BLADDER WITH UROLOGIST Plan discussed with: Patient Visit Coding OBGYN Date of Service: Dec 06, 2024 Billing Provider: ELHAM FLORES DO EQUIPMENT TECH Common Visit Codes: 34327-HFMKMYP INP/OBS CARE (HIGH) EQUIPMENT TECH Consultation Codes: 17692-CCTIFAMRP CONSULT <80MIN ELHAM FLORES DO Dec 07, 2024 16:50
== END 2024-12-06 18:00 | disposition home or self-care (01) | DRG 463 ==
LOC: ER 12:04 → OVERFLOW 23:29 → CENTRAL 23:56
PROVIDERS: ADMIT Student in an Organized Health Care Education/Training Program; ATTEND Student in an Organized Health Care Education/Training Program
DX: N30.10 Interstitial cystitis (chronic) without hematuria (principal); F41.9 Anxiety disorder, unspecified; N81.10 Cystocele, unspecified; M06.9 Rheumatoid arthritis, unspecified; M79.7 Fibromyalgia; K21.9 Gastro-esophageal reflux disease without esophagitis; Z20.822 Contact with and (suspected) exposure to COVID-19; I10 Essential (primary) hypertension; K29.00 Acute gastritis without bleeding; R60.0 Localized edema; Z90.710 Acquired absence of both cervix and uterus; Z90.49 Acquired absence of other specified parts of digestive tract; Z90.11 Acquired absence of right breast and nipple; Z93.3 Colostomy status; Z85.3 Personal history of malignant neoplasm of breast; Z82.49 Family history of ischemic heart disease and other diseases of the circulatory system
CPT/HCPCS: 36415; 74176; 74250; 76830; 76856; 76857; 80048; 80053; 81001; 82306; 82607; 82746; 83036; 83605; 83690; 84443; 85025; 87081; 87086; 87426; 87804; 93970; 96374; 96375; G0378; J1885; J2405; J2470